=== PATIENT | female | born 1940 | race Caucasian/White ===

== ENCOUNTER 2018-05-15 08:40 | Outpatient (CLI) | payer MEDICARE, OTHER, SELFPAY | END 2018-05-15 09:00 | PROVIDERS: PCP General Practice; Visit Provider General Practice | DX: Z53.8 Procedure and treatment not carried out for other reasons (principal); Z00.00 Encounter for general adult medical examination without abnormal findings | CPT/HCPCS: 36415; 80061; 82947; 83721 ==

== ENCOUNTER 2018-06-06 01:00 | Outpatient (CLI) | payer MEDICARE, OTHER, SELFPAY ==
--- NOTE | 2018-06-06 13:55 | DI.MAMMO_ITS ---
SYMPTOMS/DIAGNOSIS: SCREENING, Z12.31, H/O BREAST CA MAMMOGRAM: The patient has a history of right lumpectomy. Comparison is made with exams from 2012 through 2016. The breasts are composed of heterogeneously dense fibroglandular tissue, breast density category C. Scarring is again noted in the upper outer quadrant of the right breast. There are coarse, benign- appearing calcifications, greater in the right breast. No suspicious masses or suspicious microcalcifications are seen. There has been no significant change. IMPRESSION: Category 2, negative mammogram. Yearly screening mammography is recommended. SA ASSESSMENT OF FINDINGS: Negative with benign findings. Category 2. Patient will receive a letter notifying them of these results. Bi-RADS category C. The breasts are heterogeneously dense, which may obscure small masses.
== END 2018-06-06 01:20 ==
PROVIDERS: PCP General Practice; Visit Provider General Practice
DX: Z12.31 Encounter for screening mammogram for malignant neoplasm of breast (principal); Z85.3 Personal history of malignant neoplasm of breast
CPT/HCPCS: 77063; 77067

== ENCOUNTER 2018-06-09 08:51 | Outpatient (CLI) | payer MEDICARE, OTHER, SELFPAY ==
[2018-06-09 10:09] LABS: Cholesterol 242 mg/dL (50-200); Glucose 99 mg/dL (70-100); HDL Cholesterol 85 mg/dL (40-60); LDL CHOLESTEROL 143 mg/dL (<100); Triglyceride 65 mg/dL (30-150)
== END 2018-06-09 09:11 ==
PROVIDERS: PCP General Practice; Visit Provider General Practice
DX: I10 Essential (primary) hypertension (principal); Z13.1 Encounter for screening for diabetes mellitus
CPT/HCPCS: 36415; 80061; 82947; 83721

== ENCOUNTER 2018-07-22 11:54 | Inpatient (IN) | payer MEDICARE, SELFPAY ==
--- NOTE | 2018-07-22 11:59 | DI.RAD_ITS ---
SYMPTOM/DIAGNOSIS: FALL, LT HIP PAIN, R/O FX PELVIS AND LEFT HIP: There is a subcapital fracture of the left femur. There is displacement and angulation. Sacrum is obscured by overlying stool and bowel gas. The right hip is unremarkable. IMPRESSION: Subcapital fracture of the left femur.
[2018-07-22 12:03] VITALS: BP 139/77; PULSE 100; RESP 17; TEMP 37.1; O2SAT 97
--- NOTE | 2018-07-22 12:03 | ED.GENADUL_ITS ---
Discharge Plan Disposition Patient Disposition: [facility] INPATIENT Condition: Good Discharge Details Chief Complaint: Orthopedic Clinical Impression: Closed fracture of left hip Reason For Visit: BALTAZAR Primary Care Provider: Zaid Ballesteros ED Provider: Giovanni Barajas Home Meds and New Rx's Prescriptions: No Action atenolol 25 MG tablet 25 mg PO DAILY RF: 0 Medical Decision Making This is a 78-year-old female who presents today for evaluation of left hip pain. She fell today after tripping on socks. She did not hit her head or lose consciousness. She did have to crawl to the phone and was able to get up utilizing her right leg. She has not been able to place any weight on her left hip. No evidence of internal or external rotation or shortening. Physical exam though is concerning for hip fracture. We will get an x-ray for further evaluation. 2:02 PM X-ray demonstrates results of a left femoral neck fracture. We will consult anesthesia for fascial iliac block. We have no available beds at this time. Did contact the hospitalist Dr. Bryan and asked if there would be any discharges coming up the states that he is unsure at this time, and would recommend transfer stating that the critical load of his current patient volume he is unable to accept any additional patients at this time. We have contacted [facility], [place], and [facility] and they do not have availability at this time. [facility] does not have orthopedics [employer] currently. [facility] does have room, we will contact them. 2:42 PM We have not gotten any call back from [facility]. I did contact the orthopedic surgeon on-call Dr. Cortez, and discussed the case with him. A bed has just opened up secondary to a medicine transfer out, Dr. Cortez has agreed to accept the patient and will care for the patient's medical needs as well at this time. Patient will be admitted to the floor for further management by Dr. Cortez for orthopedic surgery. It is been requested that I put in bridging orders at this time. I have extensively reviewed the treatment plan with the patient. I have addressed all patient concerns at this time. I have also discussed the plan with the admitting physician and they agree with the current assessment and plan and have agreed to assume responsibility for the patient. All parties demonstrate verbal understanding and agreement with our assessment and plan at this time. FINDINGS: Bones/joints: There is a left femoral neck fracture with mild impaction and superior displacement. Bone mineralization appears decreased. Moderate spondylosis lower lumbar spine. Soft tissues: Normal. IMPRESSION: Left femoral neck fracture. COMMENT: Preliminary interpretation is based on receipt of 3 image(s). A final report will be issued subsequently. Dictated and Authenticated by: Renee Magallon MD. [facility] General Date/Time Provider Initiated Documentation: 07/22/18 11:59 . HPI Narrative: This is an 79-year-old female with a past medical history of breast cancer and no other significant past medical history except for mild hypertension who presents today for evaluation of left hip pain. The patient states that she was at home when she tripped on her socks and fell and landed on her left side. Pain is located only in the left hip. No pain in the chest, legs, or arm. She had no loss of consciousness and did not strike her head. She recalls the entire event. She is not on any blood thinners. The pain is located on the medial aspect of her proximal thigh by the hip. Symptoms are made worse with movement, improved by nothing. She denies any associated symptoms of numbness, tingling, or weakness. No other modifying factors. She denies IV or illicit drug use. She denies any recent surgeries. She denies any pertinent family history. Related Data Home Medications Medication Instructions Recorded Confirmed atenolol 25 mg PO DAILY 03/30/13 07/22/18 Allergies Allergy/AdvReac Type Severity Reaction Status Date / Time No Known Allergies Allergy Unverified 07/22/18 12:09 Review of Systems Review of Systems All systems reviewed & are unremarkable except as noted in HPI and below [facility] Surgical History Cholecystectomy (12/30/16) Social History Smoking/Tobacco Use Status: Former Tobacco Use Exam Narrative Exam Narrative: 1.Const: Well-nourished, Well-developed, appearing stated age 2.Eyes: PERRL, no conjunctival injection, and symmetrical lids. 3.ENT: Atraumatic external nose and ears. Moist MM. Neck: Symmetric, trachea midline, No thyromegaly. There is no evidence of raccoon eyes, coello sign, CSF rhinorrhea, mastoid tenderness, cranial crepitus, hemotympanum, exophthalmos, or hyphema. Patient demonstrates intact dentition with no signs of tooth avulsion or fracture, no signs of jaw deformity, no evidence of a LeFort's fracture, with an intact palate, nose and orbital region. There is no evidence of a nasal septal hematoma. No proptosis. Jaw closes symmetrically. Airway is clear. 4.CVS: +S1/S2, No murmurs or gallops. Peripheral pulses 2+ and equal in all extremities. Brisk capillary refill in all extremities. 5.RESP: Unlabored respiratory effort. Clear to auscultation bilaterally. No wheezes rales or rhonchi 6.GI: Soft, Nontender/Nondistended, No hepatosplenomegaly. No guarding or rebound. 7.MSK: Normocephalic/Atraumatic, Extremities w/o deformity or ttp No cyanosis or clubbing, patient's left hip demonstrates mild tenderness on palpation of the hip near the medial groin. No severe tenderness on palpation of the greater trochanter. Notable pain with logroll. Patient demonstrates good plantar and dorsiflexion, good flexion extension of the knee which is slightly limited secondary to pain. Pelvis is stable on exam. Capillary refill is brisk, sensation is intact distal to the site of pain. Dorsalis pedis and posterior tibial +2 bilaterally. No midline tenderness to palpation over the CTLS spine. Normal ROM in flexion, extension, side bend, and rotation. Patient has +5 out of 5 strength in the lower extremities in dorsiflexion and plantarflexion, knee flexion and extension, hip flexion and extension. There is +2 over 2 dorsalis pedis pulses bilaterally. There is normal sensation to the skin with light touch at the foot, knee, and hip. Normal saddle sensation. Good sensation over the deep sural nerve area bilaterally. Rectal exam deferred. Reflexes are +2 over 4 in the patellar reflex bilaterally. +5 out of 5 strength in the medial, ulnar, radial nerve distribution bilaterally in the hands as well as intact light touch sensation to these dermatomes on the hands 8.Skin: Warm, Dry. No rashes or lesions. 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 Sensation grossly intact, no focal neurologic deficits. 10.Psych: (AAO) x3. Appropriate mood and affect
[2018-07-22] MEDS: MORPHine 10 MG/ML VIAL 2 MG IVP (12:56)
[2018-07-22 13:01] LABS: Abs Immature Grans 0.04 k/cumm (0.0-0.09); Absolute Basophil Count 0.02 k/cumm (0.0-0.2); Absolute Eosinophil Count 0.04 k/cumm (0.0-0.7); Absolute Lymphocyte Count 0.58 k/cumm (1.2-3.4); Absolute Neutrophil Count 5.71 k/cumm (1.2-6.7); Basophils % 0.3; Eosinophils % 0.6; HCT 36.7 % (36.0-46.0); HGB 12.2 g/dL (12.0-15.5); Immature Grans % 0.6; Lymphocytes % 8.7; Mean Corp. HGB Concentration 33.2 g/dL (32.0-36.0); Mean Corpuscular Hemoglobin 32.4 pg (27.0-33.0); Mean Corpuscular Volume 97.3 fL (80-95); Mean Platelet Volume 9.8 fL (8.0-11.0); Monocytes % 4.5; Neutrophils % 85.3; Platelet Count 162 x1000/uL (130-400); RBC 3.77 m/cumm (4.00-5.20); RBC Distribution Width 13.1 % (11.7-14.6); White Blood Cell Count 6.69 k/cumm (4.4-10.8)
[2018-07-22 13:13] LABS: ALT 26 U/L (12-78); AST 24 U/L (15-37); Albumin 3.3 g/dL (3.4-5.0); Alkaline Phosphatase 76 U/L (46-116); Anion Gap 8.6 mmol/L (3-11); BUN 12 mg/dL (7-18); Bilirubin, Total 0.4 mg/dL (0.2-1.0); CO2 27.4 mmol/L (21.0-32.0); CREATININE 1.02 mg/dL (0.55-1.02); Calcium 8.9 mg/dL (8.5-10.1); Chloride 105 mmol/L (98-107); Estimated GFR 52.14 (mL/min/1.73m2); Glucose 127 mg/dL (70-100); Potassium 3.6 mmol/L (3.5-5.1); Sodium 141 mmol/L (136-145); Total Protein 6.9 g/dL (6.4-8.2)
--- NOTE | 2018-07-22 13:33 | DI.VRAD_ITS ---
EXAM: XR Left Hip with Pelvis when Performed, 2 or 3 Views EXAM DATE/TIME: 07/22/2018 12:01 PM CLINICAL HISTORY: 78 years old, female; Pain; Hip pain; Left hip; Patient HX: Fall TECHNIQUE: XR Left hip with pelvis when performed, 2 or 3 views COMPARISON: CT ABD PELVIS WITH CONTRAST 12/15/2016 4:31 PM FINDINGS: Bones/joints: There is a left femoral neck fracture with mild impaction and superior displacement. Bone mineralization appears decreased. Moderate spondylosis lower lumbar spine. Soft tissues: Normal. IMPRESSION: Left femoral neck fracture. COMMENT: Preliminary interpretation is based on receipt of 3 image(s). A final report will be issued subsequently. Dictated and Authenticated by: Renee Magallon MD. Ordering:SELENE Davila MD
[2018-07-22 16:41] VITALS: BP 139/77; PULSE 97; RESP 17; TEMP 37.1; O2SAT 97
[2018-07-22 19:13] VITALS: BP 142/75; PULSE 101; RESP 19; TEMP 37.5; O2SAT 96
[2018-07-22 21:29] VITALS: BP 153/65; PULSE 126; RESP 19; TEMP 37.8; O2SAT 96
[2018-07-22] MEDS: Metoprolol 12.5 MG TAB PO (21:30)
[2018-07-22] MEDS: Acetaminophen 325 MG TAB 650 MG PO (21:54)
[2018-07-22 22:04] VITALS: TEMP 37.4
[2018-07-22 23:52] VITALS: BP 146/62; PULSE 97; RESP 17; TEMP 37.5; O2SAT 96
[2018-07-23] VITALS (16 sets, daily range): BP systolic 87–138; BP diastolic 47–76; PULSE 84–122; RESP 14–24; TEMP 36.4–38.6; O2SAT 93–98
--- NOTE | 2018-07-23 08:20 | W.PM.HP.N ---
[facility] Medical History Femoral neck fracture (Acute) Surgical History Cholecystectomy (12/30/16) Social History Smoking/Tobacco Use Status: Former Tobacco Use Meds Home Medications Medication Instructions Recorded Confirmed Type metoprolol tartrate 12.5 mg PO BID 07/22/18 07/22/18 History Allergies Allergy/AdvReac Type Severity Reaction Status Date / Time No Known Allergies Allergy Unverified 07/22/18 12:09 Results Labs : 07/25/18 06:20 07/22/18 12:50 Laboratory Results - last 24 hr 07/22/18 07/22/18 12:50 12:50 WBC 6.69 RBC 3.77 L Hgb 12.2 Hct 36.7 MCV 97.3 H MCH 32.4 MCHC 33.2 RDW 13.1 Plt Count 162 MPV 9.8 Immature Gran % 0.6 Neutrophils % 85.3 Lymphocytes % 8.7 Monocytes % 4.5 Eosinophils % 0.6 Basophils % 0.3 Absolute Neutrophils 5.71 Absolute Lymphocytes 0.58 L Absolute Monocytes 0.30 Absolute Eosinophils 0.04 Absolute Basophils 0.02 Sodium 141 Potassium 3.6 Chloride 105 Carbon Dioxide 27.4 Anion Gap 8.6 BUN 12 Creatinine 1.02 Estimated GFR/1.73 m2 52.14 Glucose 127 H Calcium 8.9 Total Bilirubin 0.4 AST 24 ALT 26 Alkaline Phosphatase 76 Total Protein 6.9 Albumin 3.3 L Last Vital Signs Temp 37.8 C H 07/23/18 08:14 Pulse 104 H 07/23/18 08:14 Resp 18 07/23/18 08:14 BP 130/76 07/23/18 08:14 Pulse Ox 96 07/23/18 08:14
[2018-07-23] MEDS: Metoprolol 12.5 MG TAB PO ×2 (08:35→19:14)
[2018-07-23] MEDS: Lactated Ringers 1,000 ML 80 ML IV ×3 (09:04→13:22)
[2018-07-23] MEDS: Hydrogen Peroxide 3% 480 ML BTL (10:11)
[2018-07-23] MEDS: Tranexamic Acid 1,000 MG/10 ML VIAL 1000 MG (10:32)
[2018-07-23] MEDS: Normal Saline 100 ML (10:32)
--- NOTE | 2018-07-23 12:05 | DI.RAD_ITS ---
SYMPTOM/DIAGNOSIS: CHECK HIP PROSTHESIS IN E.R. PORTABLE PELVIS: 07/23/18 AT 12:03 P.M. The patient is status post placement of a bipolar left hip prosthesis. Metallic anchors are noted in the greater tuberosity. The lateral skin paulo and Barajas catheter are seen. There are degenerative changes of the right hip. IMPRESSION: Satisfactory positioning of left hip prosthesis.
--- NOTE | 2018-07-23 12:30 | DI.VRAD_ITS ---
EXAM: XR Pelvis, 1 or 2 Views EXAM DATE/TIME: 07/23/2018 11:28 AM CLINICAL HISTORY: 78 years old, female; Signs and symptoms; Other: Check hip prosthesis in rr TECHNIQUE: XR pelvis, 1 or 2 views COMPARISON: CR XR hip LT complete AP pelvis 07/22/2018 12:30 PM FINDINGS: Bones/joints: Left total hip replacement. [place] in the skin consistent with recent surgery. Osteopenia Lucencies in the left superior and inferior pubic rami may represent unhealed fractures. Soft tissues: See Bones/joints Finding. IMPRESSION: 1. Left total hip replacement. [place] in the skin consistent with recent surgery. 2. Lucencies in the left superior and inferior pubic rami may represent unhealed fractures. Dictated and Authenticated by: Rebecca Taveras MD. Ordering:MALCOLM Angel MD
--- NOTE | 2018-07-23 14:30 | NUR.NOTE ---
Nursing Note: 0830: discussion with Dr. Cortez r/t 12.5mg metoprolol ordered; MD requests medication be given r/t pt's HR. RN had attempted to call and discuss with Irene rodriguez at 0815 this morning. EPITAXIAL REACTOR OPERATOR not available to discuss.
[2018-07-23] MEDS: Ketorolac 15 MG/ML VIAL IVP ×2 (14:40→19:12)
[2018-07-23] MEDS: Docusate Sodium 100 MG CAP PO ×2 (14:40→19:14)
[2018-07-23] MEDS: POTASSIUM CHLORIDE/0.9% NACL 1,000 ML 100 MEQ IV (14:40)
--- NOTE | 2018-07-23 14:48 | INITIAL_ITS ---
Care Management Initial Assess REASON FOR HOSPITALIZATION:: Left Hip Fracture PAST MEDICAL HISTORY/PAST SURGICAL HISTORY:: Cataracts, Breast Cancer, hypertension, vertigo, bursitis L HIP, back pain, colonoscopy, lumpectomy RT, ankle, former tobacco use PREVIOUS FUNCTIONAL STATUS/SOCIAL/FAMILY SUPPORTS:: Yuki resides alone in [place], [place]. She reports residing alone since losing her in 1994. She shares that her son and daughter in law reside across the street and are supportive. Yuki reports having a healthy support network of family and friends including her daughter, Blanca and son in law who reside in [place] and grandchildren as well. CURRENT FUNCTIONAL STATUS:: Yuki is lying in bed when CM meets with her. She has returned from the OR and reports looking forward to eating her lunch. She is pleasant in interaction. ADVANCE DIRECTIVES:: None on file at [facility], Yuki reports not wanting to complete at this time. Has patient been provided with information about the portal?: Yes Did the patient sign up for the portal?: Yes (Previously ) CODE STATUS:: Full Code INSURANCE COVERAGE / FINANCIAL ISSUES:: Angelo Cuevas, Precious, LIZZY CURRENT HOME/COMMUNITY SERVICES/EQUIPMENT:: No current equipment or services. Yuki reports her daughter recently had Hip Surgery and will provide all DME needed. Yuki reports four steps into her home, but shares her home is all one level. PRIMARY CARE PHYSICIAN:: Zaid Ballesteros POTENTIAL DISCHARGE NEEDS:: PT evaluation. Follow up appointments. PATIENT/FAMILY EDUCATION NEEDS:: Review discharge instructions, discuss Ask Me Three. ANTICIPATED BARRIERS TO DISCHARGE:: None identified at this time. TRANSPORTATION:: Via private vehicle with family. PLAN:: Yuki will be evaluated for discharge readiness. She will work with PT on strengthening, transfer education and gait stability. Yuki will return home when ready per MD; undetermined if she will require VNA supports upon discharge; CM will continue to follow. Yuki will transport via private vehicle with family.
[2018-07-23] MEDS: Normal Saline Flush 10 ML SYR IVP (19:13)
[2018-07-23] MEDS: Acetaminophen 325 MG TAB 650 MG PO (23:37)
[2018-07-24] MEDS: POTASSIUM CHLORIDE/0.9% NACL 1,000 ML 100 MEQ IV ×2 (00:57→12:38)
[2018-07-24] MEDS: Ketorolac 15 MG/ML VIAL IVP ×4 (01:00→19:59)
[2018-07-24] MEDS: Normal Saline Flush 10 ML SYR IVP ×2 (01:01→03:50)
[2018-07-24 03:15] VITALS: O2SAT 93
[2018-07-24 03:37] VITALS: BP 115/69; PULSE 94; RESP 17; TEMP 37.5; O2SAT 95
--- NOTE | 2018-07-24 06:29 | HPE_ITS ---
ADMISSION HISTORY AND PHYSICAL DATE OF SERVICE July 22, 2018 REASON FOR ADMISSION Displaced fracture of left femoral neck. ASSESSMENT 1. Displaced fracture left femoral neck. 2. Sinus tachycardia. 3. History of breast cancer in remission. 4. Hypertension. 5. Hypercholesterolemia. PLAN Plan to admit her overnight for pain control. She will be n.p.o. after midnight and plan on a unipolar prosthetic replacement of the left femoral h ead for femoral neck fracture tomorrow 07/23/2018 at 9:00 a.m. The risks and complications of the procedure have been explained to the patient and her family in det ail. HISTORY This is an 78-year-old white female who says she tripped over some socks in her house and landed hard on her left side. She tried to get up, but it was too painful for her to step on her left leg. Famil y members were able to get her an ambulance and transport to [facility]. X-rays showed a displaced fracture of her left femoral neck. Prosthetic replacement of the femoral head for femoral neck fracture was advised as optimum treatment . She will be admitted overnight for pain control. The planned unipolar prosthetic replacement is leatha orr morning on 07/23/2018 at 9:00 a.m. She has received a fascia patricia block by anesthesia to help wi th her pain over night. PAST MEDICAL HISTORY 1. Breast cancer. In the early 90s, she had breast cancer. This was treated by surgery, followed by radiation and chemotherapy. She has been to her knowledge cancer free. 2. Cholecystectomy and that was a few years ago at [facility] in [place]. ALLERGIES NONE KNOWN. MEDICATIONS 1. Ibuprofen. She takes occasional ibuprofen for arthritis. 2. Atenolol for rate control for apparent sinus tachycardia. She has had a cardiac workup with an ec ho with no specific abnormalities found. REVIEW OF SYSTEMS She denies any loss of consciousness or any trauma to her head. She denies any shortness of breath. No chest pain. No abdominal pain. No recent weight loss or gain. No vision problems. No urinary symptoms. No bowel symptoms. PHYSICAL EXAMINATION VITAL SIGNS - Blood pressure is 139/77. Pulse 100 and regular. Respirations 17 a minute. O2 sat 97% on room air. Temperature 37.1. HEENT - Head is normocephalic. No evidence of any external trauma to the head. Ear, Nose and Throat - External auditory canals are clear. Tongue is well papillated, midline. She has her own teeth, but t here are several missing. NECK - No bruits. No masses. LUNGS - Lungs are clear to auscultation. HEART - Heart sounds are within normal limits. Regular rhythm. No murmurs. No extra beats. She appear s to be in sinus tachycardia. BREASTS - No skin changes. No masses. ABDOMEN - Soft, nontender. Active bowel sounds. No organomegaly. RECTAL - Examination not performed. GENITALIA - Examination not performed. EXTREMITIES - Her left lower extremity is minimally shortened. She is irritable with internal rotatio n even though she has had a fascia patricia block. There is no swelling of her left foot and ankle. No sk in changes. She has normal sensation in her left foot. Normal circulation in the left foot. X-rays - AP pelvis x-rays and Frog lateral x-ray of the left hip was obtained. She has a femoral neck fracture that is completely displaced. It is mid cervical. LABORATORY STUDIES Hemoglobin 12.2 grams, hematocrit 36.7%, white blood cell count 6,690, platelet count 162,000. Total cholesterol is high at 242 mg/dl. Sodium 141, potassium 3.6, chloride 105, CO2 27.4, BUN 12 mg/dl, creatinine 1.02 mg/dl.
[2018-07-24] MEDS: Pantoprazole 40 MG TABCR PO (06:52)
--- NOTE | 2018-07-24 07:19 | ROE_ITS ---
REPORT OF OPERATIVE PROCEDURE DATE OF PROCEDURE July 23, 2018 PREOPERATIVE DIAGNOSES Fracture left femoral neck, displaced. POSTOPERATIVE DIAGNOSES 1. Fracture left femoral neck, displaced. 2. Avulsion of abductor muscles from the greater trochanter on the left. PROCEDURES 1. Unipolar prosthetic replacement of the left femoral head for femoral neck fracture. 2. Repair of avulsed abductor muscles to the greater trochanter. ANESTHESIA Spinal, by Jeff Avila C.R.N.A. SURGEON Stanley Cortez M.D. INSPECTOR MOTOR VEHICLES Luc Connor INDICATION This is an 78-year-old white female who fell in her home yesterday 07/22/2018 sustaining a displaced f racture of the left femoral neck. The patient had given a history of some ongoing left hip discomfort for several months prior to her fall. She presented to the Emergency Room where x-rays showed the di splaced femoral neck fracture. Unipolar prosthetic replacement was advised as optimal treatment to a lleviate her pain and get up and ambulatory as soon a possible. The risks and complications to the pr ocedure were explained to the patient in detail preoperatively. PROCEDURE DESCRIPTION The patient was taken to the Operating Room on 07/23/2018. She was placed supine on the operating tabl e, turned on her to left side and a spinal anesthetic was administered. Once good spinal was obtained , the patient was then turned into the left lateral position. The position was maintained on the oper ating table with a pneumatic beanbag. The left hip was then prepped and draped free in the usual reid rile fashion. IV antibiotics were given preoperatively, Ancef 2 grams. A standard posterolateral incision was made centered over the greater trochanter. The incision was c arried down through the skin and subcu to the IT band and gluteus fascia. The IT band and gluteus fas pete were incised in line with the skin incision. Upon incising the IT band, the patient was noted to have bare greater trochanter due to avulsion of the abductor muscles with proximal migration of the m uscles. This has been termed the rotator cuff lesion of the hip. The piriformis tendon was identified. Tag suture was placed on the tendon. The tendon was released fr om the insertion of the posterior femoral neck. Short external rotators were released with electrocau rebecca from the posterior femoral neck. A capsular incision was made. The fracture was exposed. The fem oral head was removed with a corkscrew. The diameter was measured and it was found to require a 45-mm diameter prosthetic femoral head. The femoral neck was then further trimmed using oscillating saw to the appropriate level and angle. The femoral canal was then serially reamed with straight reamers to between a size #5 and #6, and then it was serially broached to a size #6. The femoral canal was the n plugged distally with the [place] Cement restrictor. The femoral canal was prepared with cementin g with pulse irrigation lavage of saline solution and drying with peroxide-soaked strip sponges. Two packages of Gentamicin impregnated Methacrylate were vacuum mixed and placed in the cement gun fo r injection. The peroxide sponges were removed from the femoral canal and the femoral canal was then filled with Methacrylate with the cement gun. A size #6 stem with a distal centralizer 10 millimeters were then inserted into the femoral canal and advanced, and then impacted until the collar of the co mponent contacted the calcar of the femur. Care was taken to position the component in 20 degrees of anteversion. Excess cement was trimmed from the edge of the collar of the component while the cement was still soft with curettes. peroxide-soaked sponge had been placed in the acetabulum to prevent pilar ent from oozing into the acetabulum. This sponge was removed. The wound was irrigated with saline so lution and all cement was removed. Trial components were then used to determine that a 45-mm head wit h a zero sleeve provided proper length. The 45-mm component was then placed on the back table. The ze ro sleeve was placed in the component and then the unipolar Endoprosthesis was placed on the neck of the stem, and impacted into place with the Impactor mallet. The femoral component was reduced in the acetabulum and was found to be quite stable. The hip was stable to flexion to 90 degrees with interna l rotation of 6 degrees and stable to external rotation and extension. The left thigh was abducted in a Benjamin stand closure was began. I elected to try to repair the avulsed abductor tendons. Two 6.5 suture anchors were placed on the ti p of the trochanter and the #2 FiberWire from the anchors were then passed through the retracted edge s of the abductor tendon in a horizontal mattress fashion. The sutures were then sequentially tied se curing the avulsed abductor muscles to the tip of the trochanter. The piriformis tendon was then sutu red to the abductor tendon at the tip of the trochanter with few interrupted [id number] sutures of #1-Vicryl suture material. 2 grams of tranexamic acid and 150 cc of saline was instilled into the wound and allowed to stay for 60 seconds to help hemostasis. All bleeders were cauterized. The wound was irrigated with Betadine and saline solution. The Betadine and saline was also allowed to stay in the wound for a minute before suctioning. The wound margins were infiltrated with 0.05% Marcaine with epinephrine solution for postoperative analgesia. The iliotibial band and gluteus fascia were approx imated with interrupted [id number] stitches of #1-Vicryl suture material. The subcu was approxim ated with interrupted #2-0 Vicryl sutures. The skin edges were approximated with skin paulo. The wound was dressed with Xeroform gauze, sterile gauze, 4x4s, ABD pad, and then taped with foam elastic tape. The patient was then turned supine on the operating table. She was transferred to the hospital bed, and then to the Recovery Room in good condition. ESTIMATED BLOOD LOSS 200 cc.
[2018-07-24 07:23] LABS: HCT 31.2 % (36.0-46.0); HGB 10.1 g/dL (12.0-15.5); Mean Corp. HGB Concentration 32.4 g/dL (32.0-36.0); Mean Corpuscular Hemoglobin 32.1 pg (27.0-33.0); Mean Platelet Volume 10.3 fL (8.0-11.0); Platelet Count 127 x1000/uL (130-400); RBC 3.15 m/cumm (4.00-5.20); RBC Distribution Width 13.2 % (11.7-14.6)
[2018-07-24 07:30] VITALS: BP 157/87; PULSE 97; RESP 16; TEMP 37.7; O2SAT 92
[2018-07-24] MEDS: Metoprolol 12.5 MG TAB PO ×2 (08:21→20:00)
[2018-07-24] MEDS: Multivitamin w/Minerals TAB 1 TAB PO (08:21)
[2018-07-24] MEDS: Docusate Sodium 100 MG CAP PO ×3 (08:21→20:00)
[2018-07-24] MEDS: Enoxaparin 30 MG/0.3 ML SYR SC (10:17)
--- NOTE | 2018-07-24 11:00 | PT.INIE ---
Date of service: 07/24/18 Time of Service: 08:00 PT Notes Inpatient Physical Therapy Evaluation Date: 07/24/18 Referring Doctor: Dr. Cortez PT Orders: PT CONSULT: Mobilize postop unipolar prosthesis left hip; WBAT to left lower extremity Precautions: standard, fall Patient Profile/Admitting Diagnosis: Patient admitted after a fall at home resulting in hip fracture. She underwent surgery yesterday, with orders for PT consultation this morning. PMHX: Cataracts, Breast Cancer, hypertension, vertigo, bursitis L HIP, back pain, colonoscopy, lumpectomy RT, ankle, former tobacco use Social History/Home Situation: Patient lives alone in a single level home with 3 MURPHY. She has supportive family in the area. She does not typically utilize an assistive device, although states that she owns a wheeled walker that she plans to use upon her return home. Current Functional Limitations: Patient states that she was up to the chair with nursing this morning, and that she felt good. Equipment Owned/DME: [facility] Subjective: Patient reports that she is feeling well this morning. She is agreeable to getting up for PT consultation. States that she has chronic weakness in her left hip, and that she has walked with her leg turning in for several years Objective: General Observation: Resting comfortably in bed. Barajas catheter, IV in LUE Mental Status: A and O x3 Pain: Stiffness ROM: Right Upper Extremity: Grossly within normal limits Left Upper Extremity: Grossly within normal limits Right Lower Extremity: Grossly within normal limits Left Lower Extremity: Hip flexion allows 80 degrees functionally; not assessed beyond this point. External rotation allows neutral only, with patient resting in slight internal rotation when not supported externally with pillows. Abduction allows 20 degrees. Knee motion is functionally within normal limits. Strength: Right Upper Extremity: Shoulder flexion 3/5. Biceps 4+/5. Triceps 4/5. Left Upper Extremity: Shoulder flexion 3/5. Biceps 4+/5. Triceps 4/5. Right Lower Extremity: Hip Flexion 4+/5. Quads 4+/5. Hamstrings 4/5. Ankle dorsiflexion 4+/5. Left Lower Extremity: Quads 3/5. Hamstrings 3/5. Ankle dorsiflexion 4+/5. Sensation: Intact distally Bed Mobility/Transfers: Sit to supine: Min assist, with head of bed at 30 degrees Sit to stand: Contact-guard Stand to sit: Contact-guard Bed to chair: Contact-guard with wheeled walker Gait: Patient ambulates 5 feet with wheeled walker and contact-guard, weightbearing as tolerated left lower extremity. She requires cues throughout for equipment management and technique. Balance: Static Sitting: Good Dynamic Sitting: Good Static Standing: Fair Dynamic Standing: Fair Special Tests: Mobility Limitations Standardized Measure [facility] 6 clicks Basic Mobility Inpatient Short Form: Raw Score: 17 standardized Score: 42.13 CMS Score: 51% CMS Modifier: CK Informed Consent/Education: Patient instructed in purpose of PT consult and plan of care. She was educated regarding postoperative hip precautions, and provided with a handout for reminders. She was instructed in early therapeutic exercises, consisting of quad sets, glutes sets and L AQ, for 10 repetitions each. At end of session she remains sitting up in chair with safety strap in place, and call almeida within reach. 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 Patient presents with clinical signs and symptoms consistent with postoperative status, as demonstrated by the following impairment level findings: 1. Decreased left hip range of motion 2. Decreased lower extremity strength 3. Postoperative pain 4. Gait impairments Impairments are contributing to the following functional limitations: 1. Unable to tolerate household distance ambulation 2. Unable to manage stairs 3. Unable to independently get in and out of bed [facility] score 51% deficit Patient is assessed as aModerate 88630 \complexity based on the following: History: 78-year-old female, one day postop after left hip fracture resulting from a fall at home. History is complicated by chronic vertigo, chronic left hip dysfunction with associated gait deficits, and advanced age. Examination: Functional limitations as noted above Presentation: Evolving, secondary to acute postoperative status Decision Making: Moderate complexity Goals: Goals X1 week 1. Supine-Sit: Supervision 2. Sit-Supine: Supervision 3. Sit-Stand : Supervision 4. Stand-Sit : Supervision 5. Bed-Chair : Supervision with WW 6. Chair-Bed : Supervision with WW 7. Gait : 50' with WW, supervision 8. Stairs : ascend and descend 6 steps x 3 with bilat rails Plan of Care/Treatment Plan: 1-2x/day, 7 days/week x 1 week. Plan of care has been reviewed with the MUD GRINDER providing the service under Physical Therapy direction. Initiate Physical Therapy intervention for strengthening, bed mobility, transfers, gait, stairs, balance training, use of assistive device. DISCHARGE RECOMMENDATIONS: Home with family assistance, no equipment needs anticipated TREATMENT CODE/TIME: 25 minutes (28409) G Codes in the area mobility of walking and moving around: current status [id number] []; projected status GP [id number]-[]. Discharge status (if discharging) GP G8980 [].
--- NOTE | 2018-07-24 11:03 | IN_ITS ---
Date of service: 07/24/18 Time of Service: 08:00 PT Notes Inpatient Physical Therapy Evaluation Date: 07/24/18 Referring Doctor: Dr. Cortez PT Orders: PT CONSULT: Mobilize postop unipolar prosthesis left hip; WBAT to left lower extremity Precautions: standard, fall Patient Profile/Admitting Diagnosis: Patient admitted after a fall at home resulting in hip fracture. She underwent surgery yesterday, with orders for PT consultation this morning. PMHX: Cataracts, Breast Cancer, hypertension, vertigo, bursitis L HIP, back pain, colonoscopy, lumpectomy RT, ankle, former tobacco use Social History/Home Situation: Patient lives alone in a single level home with 3 MURPHY. She has supportive family in the area. She does not typically utilize an assistive device, although states that she owns a wheeled walker that she plans to use upon her return home. Current Functional Limitations: Patient states that she was up to the chair with nursing this morning, and that she felt good. Equipment Owned/DME: [facility] Subjective: Patient reports that she is feeling well this morning. She is agreeable to getting up for PT consultation. States that she has chronic weakness in her left hip, and that she has walked with her leg turning in for several years Objective: General Observation: Resting comfortably in bed. Barajas catheter, IV in LUE Mental Status: A and O x3 Pain: Stiffness ROM: Right Upper Extremity: Grossly within normal limits Left Upper Extremity: Grossly within normal limits Right Lower Extremity: Grossly within normal limits Left Lower Extremity: Hip flexion allows 80 degrees functionally; not assessed beyond this point. External rotation allows neutral only, with patient resting in slight internal rotation when not supported externally with pillows. Abduction allows 20 degrees. Knee motion is functionally within normal limits. Strength: Right Upper Extremity: Shoulder flexion 3/5. Biceps 4+/5. Triceps 4/5. Left Upper Extremity: Shoulder flexion 3/5. Biceps 4+/5. Triceps 4/5. Right Lower Extremity: Hip Flexion 4+/5. Quads 4+/5. Hamstrings 4/5. Ankle dorsiflexion 4+/5. Left Lower Extremity: Quads 3/5. Hamstrings 3/5. Ankle dorsiflexion 4+/5. Sensation: Intact distally Bed Mobility/Transfers: Sit to supine: Min assist, with head of bed at 30 degrees Sit to stand: Contact-guard Stand to sit: Contact-guard Bed to chair: Contact-guard with wheeled walker Gait: Patient ambulates 5 feet with wheeled walker and contact-guard, weightbearing as tolerated left lower extremity. She requires cues throughout for equipment management and technique. Balance: Static Sitting: Good Dynamic Sitting: Good Static Standing: Fair Dynamic Standing: Fair Special Tests: Mobility Limitations Standardized Measure [facility] 6 clicks Basic Mobility Inpatient Short Form: Raw Score: 17 standardized Score: 42.13 CMS Score: 51% CMS Modifier: CK Informed Consent/Education: Patient instructed in purpose of PT consult and plan of care. She was educated regarding postoperative hip precautions, and provided with a handout for reminders. She was instructed in early therapeutic exercises, consisting of quad sets, glutes sets and L AQ, for 10 repetitions each. At end of session she remains sitting up in chair with safety strap in place, and call almeida within reach. 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 Patient presents with clinical signs and symptoms consistent with postoperative status, as demonstrated by the following impairment level findings: 1. Decreased left hip range of motion 2. Decreased lower extremity strength 3. Postoperative pain 4. Gait impairments Impairments are contributing to the following functional limitations: 1. Unable to tolerate household distance ambulation 2. Unable to manage stairs 3. Unable to independently get in and out of bed [facility] score 51% deficit Patient is assessed as aModerate 82571 \complexity based on the following: History: 78-year-old female, one day postop after left hip fracture resulting from a fall at home. History is complicated by chronic vertigo, chronic left hip dysfunction with associated gait deficits, and advanced age. Examination: Functional limitations as noted above Presentation: Evolving, secondary to acute postoperative status Decision Making: Moderate complexity Goals: Goals X1 week 1. Supine-Sit: Supervision 2. Sit-Supine: Supervision 3. Sit-Stand : Supervision 4. Stand-Sit : Supervision 5. Bed-Chair : Supervision with WW 6. Chair-Bed : Supervision with WW 7. Gait : 50' with WW, supervision 8. Stairs : ascend and descend 6 steps x 3 with bilat rails Plan of Care/Treatment Plan: 1-2x/day, 7 days/week x 1 week. Plan of care has been reviewed with the LONE LEAD LINEMAN providing the service under Physical Therapy direction. Initiate Physical Therapy intervention for strengthening, bed mobility, transfers, gait, stairs, balance training, use of assistive device. DISCHARGE RECOMMENDATIONS: Home with family assistance, no equipment needs anticipated TREATMENT CODE/TIME: 25 minutes (97580) G Codes in the area mobility of walking and moving around: current status [id number] []; projected status GP [id number]-[]. Discharge status (if discharging) GP G8980 [].
[2018-07-24 11:23] VITALS: BP 122/66; PULSE 89; RESP 16; TEMP 36.8; O2SAT 95
--- NOTE | 2018-07-24 12:06 | PT.INTREAT ---
Date of service: 07/24/18 Time of Service: 12:06 PT Notes Inpatient Physical Therapy Treatment Note [facility] Date: 07/24/18 PRECAUTIONS: WBAT on L, Fall SUBJECTIVE: Yuki states that she feels weak through her L LE. OBJECTIVE: PAIN: No c/o pain BED MOBILITY/TRANSFERS Sit-stand: CGA Stand-sit: CGA GAIT Assistive Device: FWW Weight bearing: WBAT L Assist: CGA Distance: 10' + 5'x2 THEREX: Patient completed a LE strengthening program, as per flow sheet. STAIRS: Up 3x4 and down 2x6 using B rails and a step-to pattern with CGA. ASSESSMENT: Patient tolerated session well without complaint of pain. She was able to tolerate a progression in gait distance with FWW support and CGA. She was able to tolerate stair training, with cueing for appropriate technique. Patient would benefit from continued gait and transfer training as well as strengthening for improved mobility. PLAN: Continue with PT's POC TREATMENT CODE/TIME: 30 minutes; TA/TP
--- NOTE | 2018-07-24 12:11 | PTTR_ITS ---
Date of service: 07/24/18 Time of Service: 12:06 PT Notes Inpatient Physical Therapy Treatment Note [facility] Date: 07/24/18 PRECAUTIONS: WBAT on L, Fall SUBJECTIVE: Yuki states that she feels weak through her L LE. OBJECTIVE: PAIN: No c/o pain BED MOBILITY/TRANSFERS Sit-stand: CGA Stand-sit: CGA GAIT Assistive Device: FWW Weight bearing: WBAT L Assist: CGA Distance: 10' + 5'x2 THEREX: Patient completed a LE strengthening program, as per flow sheet. STAIRS: Up 3x4 and down 2x6 using B rails and a step-to pattern with CGA. ASSESSMENT: Patient tolerated session well without complaint of pain. She was able to tolerate a progression in gait distance with FWW support and CGA. She w as able to tolerate stair training, with cueing for appropriate technique. Patient would benefit from continued gait and transfer training as well as strengthening for improved mobility. PLAN: Continue with PT's POC TREATMENT CODE/TIME: 30 minutes; TA/TP
--- NOTE | 2018-07-24 13:34 | W.PM.PROGNOT ---
Date of Service Date of service: 07/24/18 Time of Service: 09:34 Assessment and Plan (1) Femoral neck fracture: Start date: 07/22/18 Current visit: Yes Status: Acute Assessment: Stable postop day #1 unipolar prosthesis left hip for femoral neck fracture. I explained to the patient that she will be able to go home when she is independent with transfers and ambulation with a walker as well as taking only oral pain medications. Plan: Continue to mobilize with physical therapy. DC Barajas. Check hemoglobin tomorrow. The DC home at all acute care goals are for filled. Subjective Interval history since last seen: Yuik is feeling good. He has not requested any narcotics. Pain is well controlled. She got up and walked with physical therapy this morning. Exam Narrative Exam Narrative: She is afebrile vital signs are stable. She has good I and O's. No swelling in her left foot and ankle. She has good sensation and circulation to the left foot. Left hip dressings are dry. She is sitting comfortably in a chair this morning. Objective Objective Clinical Data: Abnormal lab results 07/24/18 Range/Units 06:35 RBC 3.15 L (4.00-5.20) m/cumm Hgb 10.1 L D (12.0-15.5) g/dL Hct 31.2 L (36.0-46.0) % MCV 99.0 H (80-95) fL Plt Count 127 L (130-400) x1000/uL Vital Signs Temperature 36.8 C 07/24/18 11:23 Temperature Source Tympanic 07/24/18 11:23 Pulse 89 07/24/18 11:23 Pulse Rhythm Regular 07/24/18 08:00 Respiratory Rate 16 07/24/18 11:23 Respiratory Effort Non-Labored 07/24/18 08:00 Respiratory Depth Normal 07/24/18 08:00 Respiratory Pattern Normal 07/24/18 08:00 Blood Pressure 122/66 07/24/18 11:23 Blood Pressure Position Supine 07/22/18 12:03 Pulse Oximetry 95 07/24/18 11:23 Respiratory End-tidal CO2 29 07/23/18 12:14 Oxygen Delivery Method Room Air 07/24/18 11:23 Oxygen Flow Rate 0 07/24/18 11:23 Pain Level 2 07/24/18 11:21 Comment 07/24/18 07:30 Intake & Output 07/23/18 07/24/18 07/24/18 23:59 11:59 23:59 Intake Total 2439.334 / 4089.334 2488.333 / 2488.333 Output Total 875 / 1800 725 / 725 Balance 1564.334 / 2289.334 1763.333 / 1763.333 Weight 73.3 kg Intake: IV 1359.334 / 3009.334 1398.333 / 1398.333 Oral 1080 / 1080 1090 / 1090 Output: Urine 875 / 1600 725 / 725 Other: Urine Color Straw Pale Yellow Urine Appearance Clear Clear Emesis Description None Laboratory Results WBC 5.80 k/cumm (4.4-10.8) 07/24/18 06:35 RBC 3.15 m/cumm (4.00-5.20) L 07/24/18 06:35 Hgb 10.1 g/dL (12.0-15.5) L D 07/24/18 06:35 Hct 31.2 % (36.0-46.0) L 07/24/18 06:35 MCV 99.0 fL (80-95) H 07/24/18 06:35 MCH 32.1 pg (27.0-33.0) 07/24/18 06:35 MCHC 32.4 g/dL (32.0-36.0) 07/24/18 06:35 RDW 13.2 % (11.7-14.6) 07/24/18 06:35 Plt Count 127 x1000/uL (130-400) L 07/24/18 06:35 MPV 10.3 fL (8.0-11.0) 07/24/18 06:35 Immature Gran % 0.6 07/22/18 12:50 Neutrophils % 85.3 07/22/18 12:50 Lymphocytes % 8.7 07/22/18 12:50 Monocytes % 4.5 07/22/18 12:50 Eosinophils % 0.6 07/22/18 12:50 Basophils % 0.3 07/22/18 12:50 Absolute Neutrophils 5.71 k/cumm (1.2-6.7) 07/22/18 12:50 Absolute Lymphocytes 0.58 k/cumm (1.2-3.4) L 07/22/18 12:50 Absolute Monocytes 0.30 k/cumm (0.11-0.7) 07/22/18 12:50 Absolute Eosinophils 0.04 k/cumm (0.0-0.7) 07/22/18 12:50 Absolute Basophils 0.02 k/cumm (0.0-0.2) 07/22/18 12:50 Sodium 141 mmol/L (136-145) 07/22/18 12:50 Potassium 3.6 mmol/L (3.5-5.1) 07/22/18 12:50 Chloride 105 mmol/L (98-107) 07/22/18 12:50 Carbon Dioxide 27.4 mmol/L (21.0-32.0) 07/22/18 12:50 Anion Gap 8.6 mmol/L (3-11) 07/22/18 12:50 BUN 12 mg/dL (7-18) 07/22/18 12:50 Creatinine 1.02 mg/dL (0.55-1.02) 07/22/18 12:50 Estimated GFR/1.73 m2 52.14 (mL/min/1.73m2) 07/22/18 12:50 Glucose 127 mg/dL (70-100) H 07/22/18 12:50 Calcium 8.9 mg/dL (8.5-10.1) 07/22/18 12:50 Total Bilirubin 0.4 mg/dL (0.2-1.0) 07/22/18 12:50 AST 24 U/L (15-37) 07/22/18 12:50 ALT 26 U/L (12-78) 07/22/18 12:50 Alkaline Phosphatase 76 U/L (46-116) 07/22/18 12:50 Total Protein 6.9 g/dL (6.4-8.2) 07/22/18 12:50 Albumin 3.3 g/dL (3.4-5.0) L 07/22/18 12:50
[2018-07-24 16:06] VITALS: BP 124/72; PULSE 111; RESP 17; TEMP 38; O2SAT 95
--- NOTE | 2018-07-24 17:23 | PDOC.CMPRO ---
Care Management Progress Note S/O: Yuki remains pleasant in interaction. She continues to have visitors throughout the day. She began stair training with PT today and continues to recover and work towards discharging to home. CM will continue to follow. A: 78 year old female admitted to [facility] 07/23/18 for Left Hip Fracture P: Per MD, Yuki will return home when she is independent with transfers and ambulation with a walker as well as taking only oral pain medications. She will transport via private vehicle with family.
--- NOTE | 2018-07-24 17:26 | CMPROGNOTE_ITS ---
Care Management Progress Note S/O: Yuki remains pleasant in interaction. She continues to have visitors throughout the day. She began stair training with PT today and continues to recover and work towards discharging to home. CM will continue to follow. A: 78 year old female admitted to [facility] 07/23/18 for Left Hip Fracture P: Per MD, Yuki will return home when she is independent with transfers and ambulation with a walker as well as taking only oral pain medications. She will transport via private vehicle with family.
[2018-07-24 19:51] VITALS: BP 147/79; PULSE 118; RESP 19; TEMP 38.2; O2SAT 98
[2018-07-25] VITALS (8 sets, daily range): BP systolic 109–147; BP diastolic 59–77; PULSE 85–115; RESP 17–22; TEMP 37.2–37.8; O2SAT 91–96
[2018-07-25] MEDS: Ketorolac 15 MG/ML VIAL IVP ×2 (02:06→09:31)
[2018-07-25] MEDS: POTASSIUM CHLORIDE/0.9% NACL 1,000 ML 60 MEQ IV (03:53)
[2018-07-25 07:19] LABS: Mean Corp. HGB Concentration 32.1 g/dL (32.0-36.0); Mean Corpuscular Hemoglobin 31.8 pg (27.0-33.0); Mean Corpuscular Volume 98.9 fL (80-95); Mean Platelet Volume 10.3 fL (8.0-11.0); Platelet Count 125 x1000/uL (130-400); RBC 2.83 m/cumm (4.00-5.20); RBC Distribution Width 13.1 % (11.7-14.6); White Blood Cell Count 5.85 k/cumm (4.4-10.8)
[2018-07-25] MEDS: Pantoprazole 40 MG TABCR PO (07:42)
[2018-07-25] MEDS: Acetaminophen 325 MG TAB 650 MG PO ×3 (08:13→20:24)
[2018-07-25] MEDS: Docusate Sodium 100 MG CAP PO ×3 (09:14→20:24)
[2018-07-25] MEDS: Metoprolol 12.5 MG TAB PO ×2 (09:14→20:24)
[2018-07-25] MEDS: Multivitamin w/Minerals TAB 1 TAB PO (09:14)
[2018-07-25] MEDS: Normal Saline Flush 10 ML SYR IVP (09:32)
--- NOTE | 2018-07-25 10:32 | PT.INTREAT ---
Date of service: 07/25/18 Time of Service: 10:32 PT Notes Inpatient Physical Therapy Treatment Note [facility] Date: 07/25/18 PRECAUTIONS: WBAT on L SUBJECTIVE: Yuki states that she has not had any pain medication this morning. OBJECTIVE: PAIN: Patient c/o L hip pain, and R shoulder pain BED MOBILITY/TRANSFERS Sit-stand: SBA Stand-sit: SBA GAIT Assistive Device: FWW Weight bearing: WBAT L Assist: CGA Distance: 20' x2 Deviation: Cueing for foot placement THEREX: Patient completed a LE strengthening and stabilization program, as per flow sheet. ASSESSMENT: Patient tolerated session with c/o hip pain with weight bearing and transfers. She was able to tolerate a progression in gait distance with FWW support. She would benefit from continued gait and transfer training, as well as strengthening for improved mobility. PLAN: Continue with PT's POC TREATMENT CODE/TIME: 25 minutes; ([id number], [id number])
[2018-07-25] MEDS: Enoxaparin 30 MG/0.3 ML SYR SC (11:00)
--- NOTE | 2018-07-25 12:17 | PHARADMIT ---
Admission Pharmacy Clinical Review left hip fracture Code Status Full Code Current Weight 74.3 kg Renally Cleared and Narrow Therapeutic Index Meds Crcl ~43.4 mL/min current meds okay QTc Value / Action Taken QTc 449 BP Control, Fever BP 115/70 Tmax 38.2 overnight Electrolytes reviewed within normal limits DVT Prophylaxis enoxaparin Opiate Usage / Scheduled Bowel Regimen Ordered prn/maulik Plt/SCr for Heparin / Enoxaparin plt 125 SCr 1.02 INR for Warfarin n/a H/H stable, WBC/Bands h/h 9.0/28.0 WBC 5.85 Antibiotic appropriateness n/a Cultures and Sensitivities none Surgical ABX d/c within 24 hr yes DM control / Insulin Dosing BG 127 Heart Failure (Check EF%) (HAZEL's, B-Block, Diuretics) metoprolol IV to PO Switch n/a Home Meds Reviewed yes Home Meds Not Ordered none Comments working with PT
--- NOTE | 2018-07-25 13:14 | PDOC.CMPRO ---
- If Service Date Differs Date of service: 07/25/18 Time of Service: 13:14 Care Management Progress Note S/O: CM met with Yuki and her daughter this morning. Yuki states that she is feeling well, and looking forward to working with PT today. Yuki and her daughter state that they are interested in home services, CM discussed home health PT/OT with them and they are receptive to this. Yuki also states that she feels she may require a commode at home. CM discussed that as her home is one level she would have to pay privately for a commode. A: 78 year old female admitted to [facility] 07/23/18 for Left Hip Fracture P: Per MD, Yuki will return home when she is independent with transfers and ambulation with a walker as well as taking only oral pain medications. She will require home health PT/OT at time of DC. She will transport via private vehicle with family.
--- NOTE | 2018-07-25 13:28 | CMPROGNOTE_ITS ---
- If Service Date Differs Date of service: 07/25/18 Time of Service: 13:14 Care Management Progress Note S/O: CM met with Yuki and her daughter this morning. Yuki states that she is feeling well, and looking forward to working with PT today. Yuki and her daughter state that they are interested in home services, CM discussed home health PT/OT with them and they are receptive to this. Yuki also states that she feels she may require a commode at home. CM discussed that as her home is one level she would have to pay privately for a commode. A: 78 year old female admitted to [facility] 07/23/18 for Left Hip Fracture P: Per MD, Yuki will return home when she is independent with transfers and amb ulation with a walker as well as taking only oral pain medications. She will require home health PT/OT at time of DC. She will transport via private vehicle with family.
--- NOTE | 2018-07-25 14:34 | CHAPLAIN ---
Yuki was sitting up in her chair when I visited. Her daughter was with her. Yuki is a member of [facility]. Her membership administrator, Sole Molding Machine Operator Hanh, knows that she is here. Yuki appears to be comfortable being here, and well supported by her daughter.
--- NOTE | 2018-07-25 14:57 | PGE_ITS ---
Date of Service Date of service: 07/25/18 Time of Service: 13:01 Assessment and Plan (1) Femoral neck fracture: Start date: 07/22/18 Current visit: Yes Status: Acute Assessment: Progressing well at 48 hours post op femoral neck fracture treated with a unipolar prosthesis. I think she should be ready to go home by tomorrow. I discussed this with her daughter and she is in agreement with our discharge plan for tomorrow. She will not need home health physical therapy. Plan: DC IVs. Change her dressing tomorrow. Probable discharge home tomorrow after her morning PT session. Subjective Patient reports: feels better, tolerating a regular diet, voiding w/o difficulty and afebrile (She needs minimal assist to get out of bed. She can walk to the bathroom and back to her bed with a walker. She is tried going up 3 or 4 stairs.); denies fever Objective Objective Clinical Data: Abnormal lab results 07/25/18 Range/Units 06:20 RBC 2.83 L (4.00-5.20) m/cumm Hgb 9.0 L (12.0-15.5) g/dL Hct 28.0 L (36.0-46.0) % MCV 98.9 H (80-95) fL Plt Count 125 L (130-400) x1000/uL Vital Signs Temperature 37.2 C 07/25/18 12:05 Temperature Source Tympanic 07/25/18 12:05 Pulse 97 H 07/25/18 12:05 Pulse Rhythm Regular 07/25/18 08:45 Respiratory Rate 18 07/25/18 12:05 Respiratory Effort Non-Labored 07/25/18 08:45 Respiratory Depth Normal 07/25/18 08:45 Respiratory Pattern Normal 07/25/18 08:45 Blood Pressure 109/63 07/25/18 12:05 Blood Pressure Position Supine 07/22/18 12:03 Pulse Oximetry 94 L 07/25/18 12:05 Respiratory End-tidal CO2 29 07/23/18 12:14 Oxygen Delivery Method Room Air 07/25/18 12:05 Oxygen Flow Rate 0 07/25/18 12:05 Pain Level 2 07/25/18 14:06 Comment 07/24/18 07:30 Intake & Output 07/24/18 07/25/18 07/25/18 23:59 11:59 23:59 Intake Total 1665 / 4253.333 1617 / 2226 609 / 2226 Output Total 400 / 1125 950 / 950 Balance 1265 / 3128.333 667 / 1276 609 / 1276 Weight 74.3 kg Intake: IV 745 / 2813.333 242 / 851 609 / 851 Oral 2009 1375 / 1375 Output: Urine 400 / 1125 950 / 950 Other: Urine Color Yellow Yellow Urine Appearance Clear Clear Urine Odor Normal Normal Comment patient missed the hat with some of the void the water in the toilet was yellow, patient feels she passes a moderate amount of urine, she has company present at the moment will bladder scan her when she is back in bed Stool Size Small Moderate Stool Characteristics Soft Soft Formed Brown Voiding Methods Toilet Bedside Commode Laboratory Results WBC 5.85 k/cumm (4.4-10.8) 07/25/18 06:20 RBC 2.83 m/cumm (4.00-5.20) L 07/25/18 06:20 Hgb 9.0 g/dL (12.0-15.5) L 07/25/18 06:20 Hct 28.0 % (36.0-46.0) L 07/25/18 06:20 MCV 98.9 fL (80-95) H 07/25/18 06:20 MCH 31.8 pg (27.0-33.0) 07/25/18 06:20 MCHC 32.1 g/dL (32.0-36.0) 07/25/18 06:20 RDW 13.1 % (11.7-14.6) 07/25/18 06:20 Plt Count 125 x1000/uL (130-400) L 07/25/18 06:20 MPV 10.3 fL (8.0-11.0) 07/25/18 06:20 Immature Gran % 0.6 07/22/18 12:50 Neutrophils % 85.3 07/22/18 12:50 Lymphocytes % 8.7 07/22/18 12:50 Monocytes % 4.5 07/22/18 12:50 Eosinophils % 0.6 07/22/18 12:50 Basophils % 0.3 07/22/18 12:50 Absolute Neutrophils 5.71 k/cumm (1.2-6.7) 07/22/18 12:50 Absolute Lymphocytes 0.58 k/cumm (1.2-3.4) L 07/22/18 12:50 Absolute Monocytes 0.30 k/cumm (0.11-0.7) 07/22/18 12:50 Absolute Eosinophils 0.04 k/cumm (0.0-0.7) 07/22/18 12:50 Absolute Basophils 0.02 k/cumm (0.0-0.2) 07/22/18 12:50 Sodium 141 mmol/L (136-145) 07/22/18 12:50 Potassium 3.6 mmol/L (3.5-5.1) 07/22/18 12:50 Chloride 105 mmol/L (98-107) 07/22/18 12:50 Carbon Dioxide 27.4 mmol/L (21.0-32.0) 07/22/18 12:50 Anion Gap 8.6 mmol/L (3-11) 07/22/18 12:50 BUN 12 mg/dL (7-18) 07/22/18 12:50 Creatinine 1.02 mg/dL (0.55-1.02) 07/22/18 12:50 Estimated GFR/1.73 m2 52.14 (mL/min/1.73m2) 07/22/18 12:50 Glucose 127 mg/dL (70-100) H 07/22/18 12:50 Calcium 8.9 mg/dL (8.5-10.1) 07/22/18 12:50 Total Bilirubin 0.4 mg/dL (0.2-1.0) 07/22/18 12:50 AST 24 U/L (15-37) 07/22/18 12:50 ALT 26 U/L (12-78) 07/22/18 12:50 Alkaline Phosphatase 76 U/L (46-116) 07/22/18 12:50 Total Protein 6.9 g/dL (6.4-8.2) 07/22/18 12:50 Albumin 3.3 g/dL (3.4-5.0) L 07/22/18 12:50 Objective Narrative Objective Narrative: She is afebrile vital signs are stable. Left hip is non- irritable gentle passive motion. She has good active ankle dorsiflexion and plantar flexion. She has normal sensation and circulation to the left foot.
--- NOTE | 2018-07-25 15:24 | PT.INTREAT ---
Date of service: 07/25/18 Time of Service: 14:45 PT Notes Inpatient Physical Therapy Treatment Note [facility] Date: 07/25/18 PRECAUTIONS:fall, standard SUBJECTIVE: Yuki states that she's feeling well. She'd like to get up to use the restroom. OBJECTIVE: PAIN: well managed BED MOBILITY/TRANSFERS Sit-stand: SBA Stand-sit: SBA Bed-Chair: SBA with WW GAIT Assistive Device: WW Weight bearing: as tolerated Assist: CG Distance: 20'x1; 75'x1 Deviation: single LOB due to poor equipment management; requires cues throughout for WW management, hand placement, etc. THEREX: Patient was instructed in a progressed therex program, with introduction of closed chain strengthening and weight shifting activities. She received patient education regarding equipment management, and performed sit<->stand activities for LE strengthening and safety training. ASSESSMENT: Demonstrating significantly improved activity tolerance today, with progression to 75' of ambulation. PLAN: Re-eval tomorrow for potential recommendation for d/c. TREATMENT CODE/TIME: 30 minutes ([id number])
[2018-07-26 03:40] VITALS: BP 165/80; PULSE 110; RESP 18; TEMP 37.4; O2SAT 94
[2018-07-26 07:31] VITALS: BP 125/70; PULSE 115; RESP 18; TEMP 37.8; O2SAT 96
[2018-07-26] MEDS: Acetaminophen 325 MG TAB 650 MG PO ×2 (07:39→11:50)
[2018-07-26] MEDS: Pantoprazole 40 MG TABCR PO (07:40)
[2018-07-26] MEDS: Multivitamin w/Minerals TAB 1 TAB PO (07:40)
[2018-07-26] MEDS: Metoprolol 12.5 MG TAB PO (07:40)
[2018-07-26] MEDS: Docusate Sodium 100 MG CAP PO ×2 (07:40→13:04)
[2018-07-26 08:55] VITALS: BP 125/77; PULSE 90; O2SAT 96
--- NOTE | 2018-07-26 09:36 | PT.INTREAT ---
Date of service: 07/26/18 Time of Service: 09:36 PT Notes Inpatient Physical Therapy Treatment Note [facility] Date: 07/26/18 PRECAUTIONS: Fall SUBJECTIVE: Patient reports that she is feeling stiff this morning. OBJECTIVE: PAIN: No c/o pain BED MOBILITY/TRANSFERS Supine-sit: SBA with HOB flat with leg wool spotter (performed 2x) Sit-stand: Min A with HOB flat with leg wool spotter (Performed 1x), S with HOB flat with leg wool spotter (performed 1x) Stand-sit: SBA Bed-Chair: SBA GAIT Assistive Device: FWW Weight bearing: WBAT on L Assist: SBA Distance: 100' Deviation: Step-through instruct THEREX: Patient completed a LE strengthening and stabilization program, with a focus on glute strengthening, as per flow sheet. ASSESSMENT: Patient tolerated session well with c/o feeling weak. Patient tolerated a progression in gait distance with FWW support, with step-through instruction. Patient was instructed in use of leg wool spotter for aupine<>sit transfers, which she tolerated well, and demonstrates understanding. She would benefit from continued gait and transfer training, as well as strengthening for improved mobility. PLAN: Continue with PT's POC TREATMENT CODE/TIME: 30 minutes; ([id number], [id number])
[2018-07-26] MEDS: Enoxaparin 30 MG/0.3 ML SYR SC (10:29)
--- NOTE | 2018-07-26 10:41 | PDOC.CMDIS ---
LACE Index Scoring Tool - Questions: Length of Stay (in days): 3 Acuity (Admit via E.D.?): Yes Comorbidities: Any Tumor E.D. Visits: 1 - Answers: Total Score: 9 Risk of Readmission: Low Risk Care Management Discharge Reason for Hospitalization: Left Hip Fracture Discharge Plan: Yuki will return home with new orders for PT/OT per MD. Yuki reports being in agreement with discharge plan and shares that her family has removed the glass doors from her shower, fitted a hand held shower and placed a shower chair. She reports having all needed DME due to her daughter recently having hip surgery. She will transport via private vehicle with family. Patient/Family Education Needs: Review of discharge instructions, discuss self care needs upon discharge Ask Me Three. Services Needed at Discharge: Home Health Care Services (NEW PT/OT)
--- NOTE | 2018-07-26 11:40 | PT.INTREAT ---
Date of service: 07/26/18 Time of Service: 11:40 PT Notes Inpatient Physical Therapy Treatment Note [facility] Date: 07/26/18 PRECAUTIONS: WBAT on L SUBJECTIVE: Yuki states that she has had a busy morning, she feels that she is ready to discharge to home today. OBJECTIVE: PAIN: Patient c/o discomfort in L hip with weight bearing BED MOBILITY/TRANSFERS Sit-stand: SBA Stand-sit: SBA GAIT Assistive Device: FWW Weight bearing: WBAT on L Assist: SBA Distance: 50' Deviation: Step-through gait pattern instruction ASSESSMENT: Patient tolerated gait training with c/o discomfort in L hip. Patient requires skilled instruction for step-through gait pattern as well as for appropriate FWW mechanics with step-through pattern. She was able to demonstrate step-through gait pattern, although with some difficulty due to L hip discomfort with weight bearing at this time. PLAN: As per primary PT TREATMENT CODE/TIME: 10 minutes; ([id number])
[2018-07-26 11:43] VITALS: BP 131/70; PULSE 103; RESP 20; TEMP 37.6; O2SAT 96
--- NOTE | 2018-07-26 12:13 | PDOC.HHF2F ---
1. Encounter Date and Reason I certify that ROLF TERRY was seen by Stanley Cortez MD on 07/26/18 and that I had a [id number] encounter with this patient that meets the physician face to face encounter requirements. 2. Clinical Findings Supporting Skilled Need and Homebound Status I certify that home health services are medically necessary, include either intermittent longterm and/or physical/speech therapy, and that this patient is homebound in that absences from the home require considerable and taxing effort and are infrequent or of short duration, or are attributable to the need to receive medical care. [X] (a) Attached documentation from encounter provides clinical findings supporting skilled need and homebound status (including what assistance patient requires to leave the home). The encounter with the patient was in whole, or in part, for the following medical condition, which is the primary reason for home health care: LEFT HIP FRACTURE Intermediate: Physical Therapy: Needs PT and OT for mobilization following prosthetic replacement of the right femoral head for femoral neck fracture. Speech Therapy: Homebound: She meets the criteria for being homebound due to limited ambulation from hip fracture. She does not drive and has very limited mobility preventing her from attending outpatient PT. 3. Certification and Authentication I certify that I composed the above information based on my clinical judgement relating to this patient's medical condition and, if applicable, clinical findings communicated to me by the NPP or inpatient physician who performed the Home Health Referral. All further orders will be obtained through (Community Based Physician - PCP)
--- NOTE | 2018-07-26 12:16 | HHF2F_ITS ---
1. Encounter Date and Reason I certify that ROLF TERRY was seen by Stanley Cortez MD on 07/26/18 and that I had a [id number] encounter with this patient that meets the physician face to face encounter requirements. 2. Clinical Findings Supporting Skilled Need and Homebound Status I certify that home health services are medically necessary, include either intermittent long term and/or physical/speech therapy, and that this patient is homebound in that absences from the home require considerable and taxing effort and are infrequent or of short duration, or are attributable to the need to receive medical care. [X] (a) Attached documentation from encounter provides clinical findings supporting skilled need and homebound status (including what assistance patient requires to leave the home). The encounter with the patient was in whole, or in part, for the following medical condition, which is the primary reason for home health care: LEFT HIP FRACTURE Assisted: Physical Therapy: Needs PT and OT for mobilization following prosthetic replacement of the right femoral head for femoral neck fracture. Speech Therapy: Homebound: She meets the criteria for being homebound due to limited ambulation from hip fracture. She does not drive and has very limited mobility preventing her from attending outpatient PT. 3. Certification and Authentication I certify that I composed the above information based on my clinical judgement relating to this patient's medical condition and, if applicable, clinical findings communicated to me by the NPP or inpatient physician who performed the Home Health Referral. All further orders will be obtained through (Community Based Physician - PCP)
--- NOTE | 2018-07-26 12:16 | W.PM.DS.N ---
Date of service: 07/26/18 Time of Service: 12:16 DS: Diagnosis Discharge Diagnosis (1) Femoral neck fracture: Status: Acute Discharge Plan Disposition Patient Disposition: HOME W/HOME HEALTH SERVICE Condition: Good Discharge Details Chief Complaint: Orthopedic Clinical Impression: Closed fracture of left hip Reason For Visit: LEFT HIP FRACTURE Admit Date/Time: 07/23/18 14:40 Admit Provider: Stanley Cortez Attending Provider: Stanley Cortez Primary Care Provider: Zaid Ballesteros ED Provider: Giovanni Barajas Hospital Course Hospital Course: Yuki fell in her home when she tripped over a sock on 07/22/2018. She went to the emergency room where she was admitted for prosthetic replacement of the left femoral head for femoral neck fracture. A fascia patricia block was performed by anesthesia in the emergency room for pain control. She was taken to the operating room the following day on 07/23/2018 where she underwent unipolar prosthetic replacement of her left femoral head. She was noted to have had an avulsion of the abductors from her greater trochanter. This was repaired at the time of her unipolar replacement. Postoperatively she did extremely well. She was afebrile within 24 hours of the surgery. Karl was DC'd on 07/24/2018. Hemoglobin stabilized and she did not require transfusion. She was off narcotics within 24 hours of the surgery. She was independent with transfers, ambulation in the room and going up and down 3 or 4 stairs by time of discharge. By 07/26/2018 it was felt that she had completed her acute care goals and was ready for home discharge. Home health PT/OT was requested. Home Meds and New Rx's Prescriptions: New hydrocodone-acetaminophen 5-325 mg tablet 1 tab PO Q6H PRN (Reason: pain) Qty: 7 RF: 0 Continued metoprolol tartrate 25 mg Tablet 12.5 mg PO BID RF: 0 Discharge Instructions Additional Instructions: Use walker to ambulate weightbearing as tolerated left leg. May shower and get paulo wet. Cover paulo with light gauze dressing so they do not catch on clothing. Total hip precautions for 6 weeks. Should take 1 baby aspirin twice a day for 30 days to prevent blood clots in the legs. Wear the elastic stockings during the daytime only for 2 weeks. Take Aleve 1-2 tablets twice a day for pain. Take hydrocodone if needed for breakthrough pain only. Home health PT and OT. Follow-up with Dr. Cortez's office in 2 weeks for staple removal. Care Plan Goals: [place] with ambulation and transfers and activities of daily living. Stand Alone Forms: Nursing Discharge Form Referrals: Zaid Ballesteros MD [Primary Care Provider] - Stanley Cortez MD [ [facility] STAFF PHYSICIAN] - (f/u in 2 weeks) Activity:: Activity as Tolerated Equipment/Supplies:: Walker Diet:: As Tolerated Discharge Orders Discharge Orders: Discharge Order (Routine); Ordered 07/26/18 Ordered By: Stanley Cortez DS: Data Vitals/I&O Vitals and I&O: Vital Signs Temperature 37.6 C H 07/26/18 11:43 Temperature Source Tympanic 07/26/18 11:43 Pulse 103 H 07/26/18 11:43 Pulse Rhythm Regular 07/26/18 07:43 Respiratory Rate 20 07/26/18 11:43 Respiratory Effort Non-Labored 07/26/18 08:02 Respiratory Depth Normal 07/26/18 08:02 Respiratory Pattern Normal 07/26/18 08:02 Blood Pressure 131/70 07/26/18 11:43 Blood Pressure Position Supine 07/22/18 12:03 Pulse Oximetry 96 07/26/18 11:43 Respiratory End-tidal CO2 29 07/23/18 12:14 Oxygen Delivery Method Room Air 07/26/18 11:43 Oxygen Flow Rate 0 07/26/18 11:43 Pain Level 2 07/26/18 11:50 Comment 07/26/18 08:55 Intake & Output 07/25/18 07/26/18 07/26/18 23:59 11:59 23:59 Intake Total 693 / 2310 850 / 850 Output Total 150 / 1800 1500 / 1500 Balance 543 / 510 -650 / -650 Intake: IV 693 / 935 Oral 850 / 850 Output: Urine 150 / 1800 1500 / 1500 Other: Urine Color Yellow Urine Appearance Clear Urine Odor Normal Voiding Methods [facility]ilet [facility] Medical History Femoral neck fracture (Acute) Surgical History Cholecystectomy (12/30/16) Social History Smoking/Tobacco Use Status: Former Tobacco Use
[2018-07-26] MEDS: HYDROcodone 5/Acetaminophen 325 TAB PO (13:04)
--- NOTE | 2018-07-27 10:07 | PT.INDS ---
Date of service: 07/27/18 Time of Service: 10:07 PT Notes Date: 07/27/18 Referring Doctor: Dr. Cortez PT Orders: PT CONSULT: Mobilize postop unipolar prosthesis left hip; WBAT to left lower extremity Precautions: standard, fall Treatment Dates: 07/24/18 - 07/26/18 THIS DOCUMENT SERVES A SUMMARY OF CARE. NO PHYSICAL THERAPY SERVICES WERE PROVIDED ON THIS DATE. Patient Profile/Admitting Diagnosis: Patient admitted after a fall at home resulting in hip fracture. She underwent surgery 07/23/18, and participated in PT intervention 2x/day following surgery. She was able to return home with family support after PT sessions yesterday. PMHX: Cataracts, Breast Cancer, hypertension, vertigo, bursitis L HIP, back pain, colonoscopy, lumpectomy RT, ankle, former tobacco use Social History/Home Situation: Patient lives alone in a single level home with 3 MURPHY. She has supportive family in the area. She does not typically utilize an assistive device, although states that she owns a wheeled walker that she plans to use upon her return home. Current Functional Limitations: Patient states that she was up to the chair with nursing this morning, and that she felt good. Equipment Owned/DME: WW, shower chair, leg assembly person Subjective: None obtained, as patient had been discharged home prior to documentation. Objective: ROM: Right Upper Extremity: Grossly within normal limits Left Upper Extremity: Grossly within normal limits Right Lower Extremity: Grossly within normal limits Left Lower Extremity: Hip flexion allows 80 degrees functionally; not assessed beyond this point. External rotation allows neutral only, with patient resting in slight internal rotation when not supported externally with pillows. Abduction allows 20 degrees. Knee motion is functionally within normal limits. Strength: Right Upper Extremity: Shoulder flexion 3/5. Biceps 4+/5. Triceps 4/5. Left Upper Extremity: Shoulder flexion 3/5. Biceps 4+/5. Triceps 4/5. Right Lower Extremity: Hip Flexion 4+/5. Quads 4+/5. Hamstrings 4/5. Ankle dorsiflexion 4+/5. Left Lower Extremity: Quads 3/5. Hamstrings 3/5. Ankle dorsiflexion 4+/5. Sensation: Intact distally Bed Mobility/Transfers: Sit to supine: min A with use of leg assembly person, HOB at 0 degrees supine->sit: SBA with use of leg assembly person, HOB at 0 degrees Sit to stand: SBA Stand to sit:SBA Bed to chair: SBA with wheeled walker Gait: Patient able to ambulate 100' feet with wheeled walker and SBA, weightbearing as tolerated left lower extremity. She was able to manage therapeutic stairs with bilat UE support to rails and CG-min A. Balance: Static Sitting: Good Dynamic Sitting: Good Static Standing: Fair Dynamic Standing: Fair Assessment: Patient is a 78 year old female referred to physical therapy services with the diagnosis of left hip fracture, status post unipolar prosthesis 07/23/2018. She participated in PT intervention 2x/day for 3 days, with significant improvements in her functional mobility and independence. She was provided with a hip kit and instructed in appropriate use and posterior hip precautions. She is appropriate for discharge home with family support. Goals: Goals X1 week 1. Supine-Sit: Supervision (met) 2. Sit-Supine: Supervision (progressing toward) 3. Sit-Stand : Supervision (met) 4. Stand-Sit : Supervision(met) 5. Bed-Chair : Supervision with WW(met) 6. Chair-Bed : Supervision with WW(met) 7. Gait : 50' with WW, supervision(met) 8. Stairs : ascend and descend 6 steps x 3 with bilat rails(met) Plan of Care/Treatment Plan: Discharge home with family assistance. DISCHARGE RECOMMENDATIONS: Home with family assistance, no equipment needs
--- NOTE | 2018-07-27 10:15 | INDS_ITS ---
Date of service: 07/27/18 Time of Service: 10:07 PT Notes Date: 07/27/18 Referring Doctor: Dr. Cortez PT Orders: PT CONSULT: Mobilize postop unipolar prosthesis left hip; WBAT to left lower extremity Precautions: standard, fall Treatment Dates: 07/24/18 - 07/26/18 THIS DOCUMENT SERVES A SUMMARY OF CARE. NO PHYSICAL THERAPY SERVICES WERE PROVIDED ON THIS DATE. Patient Profile/Admitting Diagnosis: Patient admitted after a fall at home resulting in hip fracture. She underwent surgery 07/23/18, and participated in PT intervention 2x/day following surgery. She was able to return home with family support after PT sessions yesterday. PMHX: Cataracts, Breast Cancer, hypertension, vertigo, bursitis L HIP, back pain, colonoscopy, lumpectomy RT, ankle, former tobacco use Social History/Home Situation: Patient lives alone in a single level home with 3 MURPHY. She has supportive family in the area. She does not typically utilize an assistive device, although states that she owns a wheeled walker that she plans to use upon her return home. Current Functional Limitations: Patient states that she was up to the chair with nursing this morning, and that she felt good. Equipment Owned/DME: WW, shower chair, leg primer waterproofing machine operator Subjective: None obtained, as patient had been discharged home prior to documentation. Objective: ROM: Right Upper Extremity: Grossly within normal limits Left Upper Extremity: Grossly within normal limits Right Lower Extremity: Grossly within normal limits Left Lower Extremity: Hip flexion allows 80 degrees functionally; not assessed beyond this point. External rotation allows neutral only, with patient resting in slight internal rotation when not supported externally with pillows. Abduction allows 20 degrees. Knee motion is functionally within normal limits. Strength: Right Upper Extremity: Shoulder flexion 3/5. Biceps 4+/5. Triceps 4/5. Left Upper Extremity: Shoulder flexion 3/5. Biceps 4+/5. Triceps 4/5. Right Lower Extremity: Hip Flexion 4+/5. Quads 4+/5. Hamstrings 4/5. Ankle dorsiflexion 4+/5. Left Lower Extremity: Quads 3/5. Hamstrings 3/5. Ankle dorsiflexion 4+/5. Sensation: Intact distally Bed Mobility/Transfers: Sit to supine: min A with use of leg primer waterproofing machine operator, HOB at 0 degrees supine->sit: SBA with use of leg primer waterproofing machine operator, HOB at 0 degrees Sit to stand: SBA Stand to sit:SBA Bed to chair: SBA with wheeled walker Gait: Patient able to ambulate 100' feet with wheeled walker and SBA, weightbearing as tolerated left lower extremity. She was able to manage therapeutic stairs with bilat UE support to rails and CG-min A. Balance: Static Sitting: Good Dynamic Sitting: Good Static Standing: Fair Dynamic Standing: Fair Assessment: Patient is a 78 year old female referred to physical therapy services with the diagnosis of left hip fracture, status post unipolar prosthesis 07/23/2018. She participated in PT intervention 2x/day for 3 days, with significant improvements in her functional mobility and independence. She was provided with a hip kit and instructed in appropriate use and posterior hip precautions. She is appropriate for discharge home with family support. Goals: Goals X1 week 1. Supine-Sit: Supervision (met) 2. Sit-Supine: Supervision (progressing toward) 3. Sit-Stand : Supervision (met) 4. Stand-Sit : Supervision(met) 5. Bed-Chair : Supervision with WW(met) 6. Chair-Bed : Supervision with WW(met) 7. Gait : 50' with WW, supervision(met) 8. Stairs : ascend and descend 6 steps x 3 with bilat rails(met) Plan of Care/Treatment Plan: Discharge home with family assistance. DISCHARGE RECOMMENDATIONS: Home with family assistance, no equipment needs
== END 2018-07-26 14:28 | disposition home health service (06) | DRG 470 ==
LOC: ER 15:04 → MS 16:32
PROVIDERS: Admitting Provider Orthopaedic Surgery; Emergency Provider Student in an Organized Health Care Education/Training Program; PCP General Practice; Visit Provider Orthopaedic Surgery
PROC: 0SRS039 Replacement of Left Hip Joint, Femoral Surface with Ceramic Synthetic Substitute, Cemented, Open Approach (ICD-10-PCS; CPT 27125; principal; 2018-07-23 09:00)
DX: S72.002A Fracture of unspecified part of neck of left femur, initial encounter for closed fracture (principal); S76.2 Injury of adductor muscle, fascia and tendon of thigh; W18.09XA Striking against other object with subsequent fall, initial encounter; R00.0 Tachycardia, unspecified; I10 Essential (primary) hypertension; E78.00 Pure hypercholesterolemia, unspecified; Y92.019 Unspecified place in single-family (private) house as the place of occurrence of the external cause
CPT/HCPCS: 27236; 36415; 64450; 76942; 80053; 85027; 96374; 97110; 97162; 97530; 99219; 99221; 99285; C1713; NC; 72170; 73502; 85025; G0378; J0690; J1650; J1885; J2250; J2270; J2370; J3010; J3490; L1686

== ENCOUNTER → 2018-08-09 09:34 | Outpatient (BNVA) | payer MEDICARE, SELFPAY | PROVIDERS: PCP General Practice; Referring Provider General Practice; Visit Provider Orthopaedic Surgery | DX: S72.002D Fracture of unspecified part of neck of left femur, subsequent encounter for closed fracture with routine healing (principal); X58.XXXD Exposure to other specified factors, subsequent encounter ==

== ENCOUNTER → 2018-09-20 09:58 | Outpatient (BNVA) | payer MEDICARE, SELFPAY | PROVIDERS: PCP General Practice; Referring Provider General Practice; Visit Provider Orthopaedic Surgery | DX: S72.002D Fracture of unspecified part of neck of left femur, subsequent encounter for closed fracture with routine healing (principal); W01.0XXD Fall on same level from slipping, tripping and stumbling without subsequent striking against object, subsequent encounter ==

== ENCOUNTER 2018-09-28 08:34 | Outpatient (CLI) | payer MEDICARE, SELFPAY ==
[2018-09-28 09:59] LABS: Glucose 83 mg/dL (70-100)
== END 2018-09-28 08:54 ==
PROVIDERS: PCP General Practice; Visit Provider General Practice
DX: R73.09 Other abnormal glucose (principal)
CPT/HCPCS: 36415; 82947

== ENCOUNTER 2019-12-13 02:45 | Outpatient (CLI) | payer MEDICARE, SELFPAY ==
--- NOTE | 2019-12-13 13:00 | DI.MAMMO_ITS ---
EXAM: MG MAMMO SCREENING 60 MIN DUR CLINICAL HISTORY: breast cancer screening, personal h/o breast ca, Z85.3 TECHNIQUE: Mammograms were interpreted according to the usual protocol including computer analysis w [employer] CAD system, tomosynthesis and C-view imaging. COMPARISON: FINDINGS: The breasts are heterogeneously dense. Patient reportedly had prior history lumpectomy for breast ca rcinoma. No dominant mass or clumped microcalcification identified in either breast. Current examin ation is compared with multiple previous examinations including May 2018 and there has been no g ross interval change in appearance comparison with previous studies. IMPRESSION: No specific evidence of malignancy at this time. Routine screening examinations are suggested at yea rly intervals due to the history of breast carcinoma. BI-RADS Cat 1 - Negative: Breast Density - Category C - Heterogeneously dense:
== END 2019-12-13 03:05 ==
DX: Z12.31 Encounter for screening mammogram for malignant neoplasm of breast (principal); Z85.3 Personal history of malignant neoplasm of breast; Z98.890 Other specified postprocedural states
CPT/HCPCS: 77063; 77067

== ENCOUNTER 2020-03-10 17:51 | Inpatient (IN) | payer MEDICARE, SELFPAY ==
--- NOTE | 2020-03-10 17:45 | RT.EKG_ITS ---
APPROVED REPORT Exam: Resting ECG Patient Location: E HR:86 bpm ECG Measurements Heart Rate 86 AXIS NJ 199 P 57 QRSd 119 QRS -41 QT 422 T 74 QTc 506 Conclusion EKG 7: 59 Rate 86, sinus rhythm, QT is 422, ST elevation of 1 mm in V1, just less than 2 mm in V2, and 1 mm in V3, questionable left bundle branch block as a causative agent, negative for SCARBOSSA criterion. No reciprocal depressions. Review of prior EKG from 2017 demonstrates unchanged findings.
--- NOTE | 2020-03-10 17:45 | DI.RAD_ITS ---
EXAM: XR HIP RT COMPLETE AP PELVIS CLINICAL HISTORY: fall, suspect right hip fracture. TECHNIQUE: 2D digital imaging was performed. COMPARISON: No exams were available for comparison FINDINGS: BONES: Impacted acute intertrochanteric fracture of the right femur. No bony destructive lesion is s een. JOINTS: No dislocation present. Prior left hip prosthesis. SOFT TISSUE: Normal. IMPRESSION: Acute intertrochanteric fracture of the right femur. Unremarkable radiographs of the pelvis. DATA REPOSITORY: RADIATION DOSE DELIVERED:
[2020-03-10 17:51] VITALS: BP 154/76; PULSE 90; RESP 14; TEMP 36.3; O2SAT 95
--- NOTE | 2020-03-10 17:56 | W.ED.GENAD ---
Discharge Plan Disposition Patient Disposition: [facility] INPATIENT Condition: Stable Discharge Details Chief Complaint: Orthopedic Clinical Impression: Closed fracture of right hip Primary Care Provider: Darling Alanis ED Provider: Giovanni Barajas Home Meds and New Rx's Prescriptions: No Action ibuprofen 200 mg tablet 400 mg PO PRN RF: 0 metoprolol tartrate 25 mg tablet 12.5 mg PO BID Qty: 90 RF: 2 Medical Decision Making This is an 80-year-old female with a past medical history of breast cancer, previous left hip fracture for which I saw her for a year ago, and no other significant past medical history except for mild hypertension chronic vertigo who presents today for evaluation of right hip pain. Patient states that she was walking when she had a mechanical slip fall and landed on her right hip. She was on the ground for an hour. She admits to mild pain, she denies any numbness tingling otherwise. She did not hit her head. She denies any chest or abdominal pain. No other complaints at this time. Physical exam demonstrates an externally rotated right hip, but no significant shortening. Vital signs are stable, sensation intact, distal pulses +2 bilaterally. Signs and symptoms are concerning for hip fracture. Will get an x-ray, screening EKG. 6:30 PM X-ray results demonstrate a closed acute intertrochanteric fracture of the proximal right femur. Neurovascular exam remains intact, pain well controlled. Will place a Barajas catheter. I contacted Dr. Cortez and discussed the case with him. He does confer the need for surgery and would like the patient admitted. I contacted the hospitalist Dr. Duffy, discussed the case with him. He accepts the patient for admission. I will place bridging orders on his behalf. I have extensively reviewed the treatment plan with the patient. I have addressed all patient concerns at this time. I have also discussed the plan with the admitting physician and they agree with the current assessment and plan and have agreed to assume responsibility for the patient. All parties demonstrate verbal understanding and agreement with our assessment and plan at this time. EKG 7: 59 Rate 86, sinus rhythm, QT is 422, ST elevation of 1 mm in V1, just less than 2 mm in V2, and 1 mm in V3, questionable left bundle branch block as a causative agent, negative for SCARBOSSA criterion. No reciprocal depressions. Review of prior EKG from 2017 demonstrates unchanged findings. FINDINGS: Bones/joints: Closed, acute, intertrochanteric fracture of the proximal right femur. No dislocation. No joint space narrowing or degenerative change. Prior left total hip replacement. Soft tissues: Unremarkable. IMPRESSION: Closed, acute, intertrochanteric fracture of the proximal right femur. Thank you for allowing us to participate in the care of your patient. Dictated and Authenticated by: Kp Longo MD 03/10/2020 6:27 PM Eastern Time ([place] & [place]) HPI General Date/Time Provider Initiated Documentation: 03/10/20 17:53. HPI Narrative: This is an 80-year-old female with a past medical history of breast cancer, previous left hip fracture for which I saw her for a year ago, and no other significant past medical history except for mild hypertension chronic vertigo who presents today for evaluation of right hip pain. Patient states that she was walking when she had a mechanical slip fall and landed on her right hip. She was on the ground for an hour. She admits to mild pain, she denies any numbness tingling otherwise. She did not hit her head. She denies any chest or abdominal pain. No other complaints at this time. Related Data Home Medications Medication Instructions Recorded Confirmed ibuprofen 200 mg tablet 400 mg PO PRN tab 09/17/19 03/10/20 metoprolol tartrate 25 mg tablet 12.5 mg PO BID #90 tab 10/30/19 03/10/20 Previous Rx's Medication Instructions Recorded metoprolol tartrate 25 mg tablet 12.5 mg PO BID #90 tab 10/30/19 Allergies Allergy/AdvReac Type Severity Reaction Status Date / Time chocolate flavor AdvReac Mild Constipatio Verified 03/10/20 17:56 n General Stated Complaint: Orthopedic NOHEMY: 3 Review of Systems All systems reviewed & are unremarkable except as noted in HPI and below [facility] Medical History Breast cancer (Chronic) Right - Lumpectomy 1997, chemo & radiation Bursitis of left hip (Acute) Femoral neck fracture (Acute) Functional bowel disorder (Chronic) constipation and diarrhea Hypertension (Chronic) Impacted cerumen of both ears (Acute) Vertigo (Acute) Surgical History Cholecystectomy (12/30/16) H/O lumpectomy (Acute) History of open reduction and internal fixation (ORIF) procedure (Acute) Left hip Family History Mother , age 93 No problems noted. Father , age 82 No problems noted. Brother , age 82 No problems noted. Maternal Grandfather , age 95 No problems noted. Maternal Grandmother , age 65 No problems noted. Social History Smoking/Tobacco Use Status: Former Tobacco Use Quit Date: 07/11/98 Second Hand Exposure: Yes Alcohol Intake: current Alcohol Intake frequency: holidays/special occasions only Drug use: Never Substance use type: does not use Counseling given: No Counseling provided: none Caregiver/Support person: No Household members: none Housing: house Communication Needs: None Do you need help understanding health information?: Rarely Pets and animals: No Sexually active: No Current gender identity: decline to answer What is your relationship status?: How often do you talk on the phone with friends or family?: three or more times per week How often do you get together with friends or relatives?: three or more times per week How often do you attend judaism or episcopal services?: 1-3 times per year Do you belong to any clubs or organized social groups?: decline to answer Panel score (0-1 are the most socially isolated patients): 1 What type of physical activity do you participate in: decline to answer Duration: decline to answer Frequency: decline to answer Jennie/Scientologist: chr Special jennie needs: No Seatbelt use: always Drive intox or ride w/intox spike driver: No Do you feel safe at home: Yes Do you feel safe in your relationship?: Yes Exam Narrative Exam Narrative: 1.Const: Well-nourished, Well-developed, appearing stated age 2.Eyes: PERRL, no conjunctival injection, and symmetrical lids. 3.ENT: Atraumatic external nose and ears. Moist MM. Neck: Symmetric, trachea midline, No thyromegaly. 4.CVS: +S1/S2, No murmurs or gallops. Peripheral pulses 2+ and equal in all extremities. Brisk capillary refill in all extremities. 5.RESP: Unlabored respiratory effort. Clear to auscultation bilaterally. No wheezes rales or rhonchi 6.GI: Soft, Nontender/Nondistended, No hepatosplenomegaly. No guarding or rebound. 7.MSK: Normocephalic/Atraumatic, hip is stable to AP and lateral compression. No evidence of open book fracture. No evidence of significant deformity, slight external rotation of the right leg, but no significant shortening. Sensation present throughout including in the groin. Mild tenderness with movement of the hip. Patient is unable to lift or move the hip at all though. She does demonstrate good movement sensation for the toes and feet and knee otherwise. No midline cervical thoracic or lumbar spine tenderness. 8.Skin: Warm, Dry. No rashes or lesions. 9.Neuro: entry level paralegal II-XII grossly intact. Sensation grossly intact, no focal neurologic deficits. 10.Psych: (AAO) x3. Appropriate mood and affect Course Vital Signs Vital signs: Vital Signs Temperature 36.3 C L 03/10/20 17:51 Pulse 90 03/10/20 17:51 Respiratory Rate 14 03/10/20 17:51 Blood Pressure 154/76 H 03/10/20 17:51 Pulse Oximetry 95 03/10/20 17:51 Temperature 36.3 C L 03/10/20 17:51 Temperature Source Tympanic 03/10/20 17:51 Pulse 90 03/10/20 17:51 Respiratory Rate 14 03/10/20 17:51 Respiratory Effort Non-Labored 03/10/20 17:55 Blood Pressure 154/76 H 03/10/20 17:51 Blood Pressure Position Sitting 03/10/20 17:51 Pulse Oximetry 95 03/10/20 17:51 Oxygen Delivery Method Room Air 03/10/20 17:51 Oxygen Flow Rate 0 03/10/20 17:51 Pain Level 0 03/10/20 17:51
--- NOTE | 2020-03-10 18:27 | DI.VRAD_ITS ---
PROCEDURE INFORMATION: Exam: XR Right Hip with Pelvis when Performed Exam date and time: 03/10/2020 6:11 PM Age: 80 years old Clinical indication: Right hip pain TECHNIQUE: Imaging protocol: XR Right hip with pelvis when performed. Views: 2 or 3 views. COMPARISON: SC XR pelvis AP 07/23/2018 12:03 PM FINDINGS: Bones/joints: Closed, acute, intertrochanteric fracture of the proximal right femur. No dislocation. No joint space narrowing or degenerative change. Prior left total hip replacement. Soft tissues: Unremarkable. IMPRESSION: Closed, acute, intertrochanteric fracture of the proximal right femur. Dictated and Authenticated by: Kp Longo MD. Ordering:SELENE Davila MD
[2020-03-10 19:27] VITALS: BP 143/70; PULSE 96; RESP 18; O2SAT 99
[2020-03-10] MEDS: Acetaminophen 325 MG TAB 650 MG PO (19:33)
[2020-03-10 19:50] VITALS: BP 146/73; PULSE 87; RESP 18; TEMP 36.7; O2SAT 96
[2020-03-10] MEDS: Metoprolol 25 MG TAB 12.5 MG PO (21:24)
--- NOTE | 2020-03-10 21:36 | W.PM.HP.N ---
Date of service: 03/10/20 Time of Service: 21:36 Assessment and Plan Assessment and plan (1) Closed fracture of right hip: Status: Acute Assessment and plan: She fractured her right hip with an innocent sounding fall. There does not appear to be any other acute injuries. We will make her n.p.o. after midnight. We will keep her on her metoprolol 25 twice daily. Hold on any anticoagulants. Consult Dr. Stanley Cortez from orthopedics who plans to see her in the a.m. There does not appear to be any cardiorespiratory contraindications to proceeding with right hip repair. (2) Hypertension: Status: Chronic Assessment and plan: Blood pressure 146/73. We will keep her on her metoprolol 25 mg twice daily. Qualifiers: Hypertension type: essential hypertension Qualified Code(s): I10 - Essential (primary) hypertension History of Present Illness History of Present Illness Chief Complaint: Right intertrochanteric hip fracture Narrative: This is an 80-year-old woman who lives independently in her own home. Today she suffered an innocent fall. She describes standing in her kitchen and turning to the right and falling onto her right hip. She states she was down for about an hour. EMS was summoned and she was brought to the emergency room. In the emergency room she had mild pain primarily when she tries to move her right leg. She had no numbness or tingling in that right leg. She did not hit her head in the fall. She had no other injuries to her chest or abdomen. A hip film showed an intertrochanteric hip fracture of the right. Dr. Cortez was informed from the emergency room and recommended admitting to the hospitalist service. His plan is to see the patient in the a.m. Review of Systems Narrative: Patient functions independently in her own home. Her son looks in on her daily. She is generally well. She has no problems with chest pain or shortness of breath. She has had a limp and gait disorder for many years now including prior to her left hip fracture last year. She apparently had gluteal muscles that had to be reattached but despite this she has continued to limp. She does not attribute her fall to her gait instability. COUNT INCLUDES THE [facility] Medical History Breast cancer (Chronic) Right - Lumpectomy 1997, chemo & radiation Bursitis of left hip (Acute) Femoral neck fracture (Acute) Functional bowel disorder (Chronic) constipation and diarrhea Hypertension (Chronic) Impacted cerumen of both ears (Acute) Vertigo (Acute) Surgical History (Updated 03/10/20 @ 21:40 by Lloyd Perez MD) Cholecystectomy (12/30/16) H/O lumpectomy (Acute) History of open reduction and internal fixation (ORIF) procedure (Resolved) Left hip 2019 Family History Mother , age 93 No problems noted. Father , age 82 No problems noted. Brother , age 82 No problems noted. Maternal Grandfather , age 95 No problems noted. Maternal Grandmother , age 65 No problems noted. Social History Smoking/Tobacco Use Status: Former Tobacco Use Quit Date: 07/11/98 Second Hand Exposure: Yes Alcohol Intake: current Alcohol Intake frequency: holidays/special occasions only Drug use: Never Substance use type: does not use Counseling given: No Counseling provided: none Caregiver/Support person: No Household members: none Housing: house Communication Needs: None Do you need help understanding health information?: Rarely Pets and animals: No Sexually active: No Current gender identity: decline to answer What is your relationship status?: How often do you talk on the phone with friends or family?: three or more times per week How often do you get together with friends or relatives?: three or more times per week How often do you attend christianity or jewish services?: 1-3 times per year Do you belong to any clubs or organized social groups?: decline to answer Panel score (0-1 are the most socially isolated patients): 1 What type of physical activity do you participate in: decline to answer Duration: decline to answer Frequency: decline to answer Jennie/Mormonism: chr Special jennie needs: No Seatbelt use: always Drive intox or ride w/intox route sales delivery drivers supervisor: No Do you feel safe at home: Yes Do you feel safe in your relationship?: Yes Meds Home Medications and Allergies Home Medications Medication Instructions Recorded Confirmed Type ibuprofen 200 mg tablet 400 mg PO PRN tab 09/17/19 03/10/20 History metoprolol tartrate 25 mg tablet 12.5 mg PO BID #90 tab 10/30/19 03/10/20 Rx Allergies Allergy/AdvReac Type Severity Reaction Status Date / Time chocolate flavor AdvReac Mild Constipatio Verified 03/10/20 17:56 n Exam Narrative Exam Narrative: On exam she appears younger than her stated age. She is quite alert and lucid. She is completely coherent. Her speech is clear. 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 It does not appear to affect her vision. She had no facial asymmetry. Her lungs sounded clear on the right and left. Her heart sounds sounded regular and strong. She had no abdominal tenderness to palpation. No masses were palpable. The right hip area showed no outward sign of deformity. She keeps it quite rigid and still. The distal right foot showed good overall perfusion and warmth. The left leg showed no obvious deformity. Neurologically she appears to have no acute deficits. Results Imaging Additional studies: The pelvic films showed an intertrochanteric fracture of the right hip. She has a unipolar prosthesis of the left hip that appears intact. EKG: report reviewed (Left bundle branch block pattern unchanged from prior) Last Vital Signs Temp 36.7 C 03/10/20 19:50 Pulse 87 03/10/20 19:50 Resp 18 03/10/20 19:50 BP 146/73 H 03/10/20 19:50 Pulse Ox 96 03/10/20 19:50 COVID-19 Screening Have you,or household,traveled outside [place] in last 14 days?: No Had IN PERSON contact w/suspected or confirmed C-19 person: No
[2020-03-10 23:40] VITALS: BP 145/76; PULSE 95; RESP 18; TEMP 36.2; O2SAT 96
[2020-03-10] MEDS: Acetaminophen 325 MG TAB (23:41)
[2020-03-11] VITALS (10 sets, daily range): BP systolic 98–128; BP diastolic 43–72; PULSE 78–114; RESP 16–24; TEMP 35.7–37.1; O2SAT 92–100
--- NOTE | 2020-03-11 | DI.RAD_ITS ---
EXAM: XR HIP RT AP LAT ONLY CLINICAL HISTORY: check reduction of I-T fx R hip in RR. TECHNIQUE: 2D digital imaging was performed. COMPARISON: CR,XR XR HIP RT COMPLETE AP PELVIS from 03/10/2020 FINDINGS: BONES: The patient is now status post reduction and internal fixation of the intertrochanteric right femoral fracture. Intramedullary jennifer and screw are seen transfixing the fracture. Alignment appears anatomic. No bony destructive lesion is seen. There is an old left hip prosthesis. JOINTS: No dislocation present. SOFT TISSUE: Postsurgical changes are seen in the soft tissues. IMPRESSION: Status post ORIF of the right femoral fracture. DATA REPOSITORY: RADIATION DOSE DELIVERED:
[2020-03-11] MEDS: Lactated Ringers 1,000 ML 80 ML IV ×3 (06:20→17:06)
--- NOTE | 2020-03-11 06:24 | INITIAL_ITS ---
- If Service Date Differs Date of service: 03/11/20 Time of Service: 06:24 Care Management Initial Assess REASON FOR HOSPITALIZATION:: hip fracture PAST MEDICAL HISTORY/PAST SURGICAL HISTORY:: Medical History . Breast cancer (Chronic). Right - Lumpectomy 1997, chemo & radiation. Bursitis of left hip (Acute). Femoral neck fracture (Acute). Functional bowel disorder (Chronic). constipation and diarrhea. Hypertension (Chronic). Impacted cerumen of both ears (Acute). Vertigo (Acute). Surgical History (Updated 03/10/20 @ 21:40 by Lloyd Perez MD). Cholecystectomy (12/30/16). H/O lumpectomy (Acute). History of open reduction and internal fixation (ORIF) procedure (Resolved). Left hip 2019 PREVIOUS FUNCTIONAL STATUS/SOCIAL/FAMILY SUPPORTS:: Yuki lives alone in [place], [place]. She has resided alone since losing her in 1994. Her son and daughter in law reside across the street and are supportive. Yuki has a healthy support network of family and friends including her daughter, Blanca and son in law who reside in [place] and grandchildren as well. CURRENT FUNCTIONAL STATUS:: CM was unable to meet with Yuki today as she was in the OR much of the day. ADVANCE DIRECTIVES:: None on file Has patient been provided with info about the portal/API?: Yes Did the patient sign up for the portal?: Yes (previously) CODE STATUS:: Full Code INSURANCE COVERAGE / FINANCIAL ISSUES:: Medicare. [employer] PRIMARY CARE PHYSICIAN:: Darling Alanis POTENTIAL DISCHARGE NEEDS:: Follow up with surgeon, PCP and discharge plan PATIENT/FAMILY EDUCATION NEEDS:: Discharge and follow up plans, limitations, Ask Me Three' TRANSPORTATION:: to be determined by disposition PLAN:: Yuki will be discharged home with home health services, vs going to a SNF for rehab. CM will work with Yuki and her family to determine the best options for her. CM will suppport Yuki and her family and assess for discharge planning needs.
[2020-03-11 07:38] LABS: Abs Immature Grans 0.02 10^3/uL (0.0-0.06); Absolute Basophil Count 0.04 10^3/uL (0.0-0.2); Absolute Eosinophil Count 0.11 10^3/uL (0.0-0.7); Absolute Lymphocyte Count 0.66 10^3/uL (1.2-3.4); Absolute Neutrophil Count 4.08 10^3/uL (1.2-6.7); Basophils % 0.8; Eosinophils % 2.1; HGB 8.9 g/dL (11.2-15.7); Immature Grans % 0.4; Lymphocytes % 12.7; MCH 29.1 pg (27.0-33.0); MCHC 31.8 % (32.0-36.0); MCV 91.5 fL (80-95); MPV 10.1 fL (8.0-11.0); Monocytes % 5.8; Neutrophils % 78.2; Nucleated RBC 0 %; Platelet Count 171 10^3/uL (130-400); RBC 3.06 10^6/uL (3.93-5.22); RDW 15.2 % (11.7-14.6); RDW-SD 50.9 fL; WBC 5.21 10^3/uL (4.4-10.8)
[2020-03-11 07:45] LABS: Anion Gap 7.6 mmol/L (3-11); BUN 19 mg/dL (7-18); CO2 26.4 mmol/L (21.0-32.0); CREATININE 1.06 mg/dL (0.55-1.02); Calcium 8.8 mg/dL (8.5-10.1); Chloride 108 mmol/L (98-107); Estimated GFR 49.63 (mL/min/1.73m2); Glucose 102 mg/dL (74-106); Potassium 4.6 mmol/L (3.5-5.1); Sodium 142 mmol/L (136-145)
[2020-03-11 08:34] LABS: Iron 77 ug/dL (50-170); Total Iron Binding Capacity 316 ug/dL (250-450); Transferrin Sat 24 % (15-50)
[2020-03-11 09:01] LABS: Ferritin 18 ng/mL (8-252); Folate 8.2 ng/mL (8.6-20.0); Vitamin B12 217 pg/mL (193-986)
[2020-03-11] MEDS: Metoprolol 25 MG TAB 12.5 MG PO ×2 (09:56→21:02)
--- NOTE | 2020-03-11 11:08 | CHAPLAIN ---
Yuki was resting in bed when I visited this morning. She is waiting to have surgery on her hip this afternoon. Yuki is a member of [facility] and gave me permission to let her shoe repairer helper know that she is here. Yuki said she is well supported by family, with a son and daughter in law living across the street and other family locally and at a distance. She has missed being able to have more visits with her great grand children lately. Yuki fell a few years ago and had surgery on her other hip, so she knows what she's getting into, she said.
--- NOTE | 2020-03-11 13:00 | DI.RAD_ITS ---
EXAM: XR HIP RT IN OR CLINICAL HISTORY: Right intertrochanteric hip fracture TECHNIQUE: 2D and realtime digital imaging was performed. CONTRAST MATERIAL: Refer to procedure report. COMPARISON: CR,XR XR HIP RT COMPLETE AP PELVIS from 03/10/2020 FINDINGS: Fluoroscopy was provided for Dr. Cortez during the performance of a reduction and internal fixation of the intertrochanteric fracture of the right femur. Please refer to the procedure report for compl ete details. Fluoro time: 80.5 seconds IMPRESSION: RADIATION DOSE DELIVERED:
[2020-03-11 15:04] LABS: COVID-19 RT-PCR UVMMC Result Negative (Negative)
--- NOTE | 2020-03-11 15:11 | NUR.NOTE ---
Nursing Note: Negative Covid result reported to CC Aurora Landrum and Marina Baer RN
[2020-03-11] MEDS: Tranexamic Acid 1,000 MG/10 ML VIAL 1000 MG (15:28)
[2020-03-11] MEDS: Normal Saline 100 ML (15:28)
--- NOTE | 2020-03-11 16:15 | W.PM.PROGNOT ---
Date of Service Date of service: 03/11/20 Time of Service: 16:15 Subjective Subjective Interval history since last seen: Attempted to see patient multiple times. She is still not in her room - in the OR/PACU. Objective Objective Clinical Data: Abnormal lab results 03/11/20 03/11/20 Range/Units 07:10 07:10 RBC 3.06 L (3.93-5.22) 10^6/uL Hgb 8.9 L (11.2-15.7) g/dL Hct 28.0 L (36.0-46.0) % MCHC 31.8 L (32.0-36.0) % RDW 15.2 H (11.7-14.6) % Absolute Lymphocytes 0.66 L (1.2-3.4) 10^3/uL Chloride 108 H (98-107) mmol/L BUN 19 H (7-18) mg/dL Creatinine 1.06 H (0.55-1.02) mg/dL Folate 8.2 L (8.6-20.0) ng/mL Vital Signs Temperature 37.1 C 03/11/20 12:43 Temperature Source Tympanic 03/11/20 12:43 Pulse 82 03/11/20 12:43 Pulse Rhythm Regular 03/11/20 12:44 Respiratory Rate 16 03/11/20 12:43 Respiratory Effort Non-Labored 03/11/20 12:44 Respiratory Depth Normal 03/11/20 12:44 Respiratory Pattern Normal 03/11/20 12:44 Blood Pressure 126/65 03/11/20 12:43 Blood Pressure Position Sitting 03/10/20 17:51 Pulse Oximetry 92 L 03/11/20 12:43 Oxygen Delivery Method Room Air 03/11/20 12:43 Oxygen Flow Rate 0 03/11/20 12:43 Pain Level 5 03/11/20 12:43 Intake & Output 03/10/20 03/11/20 03/11/20 23:59 11:59 23:59 Intake Total 1600 / 1600 Output Total 325 / 325 250 / 1675 1425 / 1675 Balance -315 / -315 -250 / -75 175 / -75 Weight 84.6 kg Intake: IV 1600 / 1600 Output: Urine 325 / 325 250 / 1475 1225 / 1475 Estimated Blood Loss 200 / 200 Other: Urine Color Straw Yellow Yellow Straw Urine Appearance Clear Clear Clear Comment pre-op drained Laboratory Results WBC 5.21 10^3/uL (4.4-10.8) 03/11/20 07:10 RBC 3.06 10^6/uL (3.93-5.22) L 03/11/20 07:10 Hgb 8.9 g/dL (11.2-15.7) L 03/11/20 07:10 Hct 28.0 % (36.0-46.0) L 03/11/20 07:10 MCV 91.5 fL (80-95) 03/11/20 07:10 MCH 29.1 pg (27.0-33.0) 03/11/20 07:10 MCHC 31.8 % (32.0-36.0) L 03/11/20 07:10 RDW 15.2 % (11.7-14.6) H 03/11/20 07:10 Plt Count 171 10^3/uL (130-400) 03/11/20 07:10 MPV 10.1 fL (8.0-11.0) 03/11/20 07:10 Immature Gran % 0.4 03/11/20 07:10 Neutrophils % 78.2 03/11/20 07:10 Lymphocytes % 12.7 03/11/20 07:10 Monocytes % 5.8 03/11/20 07:10 Eosinophils % 2.1 03/11/20 07:10 Basophils % 0.8 03/11/20 07:10 Nucleated RBC % 0 % 03/11/20 07:10 Absolute Neutrophils 4.08 10^3/uL (1.2-6.7) 03/11/20 07:10 Absolute Lymphocytes 0.66 10^3/uL (1.2-3.4) L 03/11/20 07:10 Absolute Monocytes 0.30 10^3/uL (0.1-0.8) 03/11/20 07:10 Absolute Eosinophils 0.11 10^3/uL (0.0-0.7) 03/11/20 07:10 Absolute Basophils 0.04 10^3/uL (0.0-0.2) 03/11/20 07:10 Sodium 142 mmol/L (136-145) 03/11/20 07:10 Potassium 4.6 mmol/L (3.5-5.1) 03/11/20 07:10 Chloride 108 mmol/L (98-107) H 03/11/20 07:10 Carbon Dioxide 26.4 mmol/L (21.0-32.0) 03/11/20 07:10 Anion Gap 7.6 mmol/L (3-11) 03/11/20 07:10 BUN 19 mg/dL (7-18) H 03/11/20 07:10 Creatinine 1.06 mg/dL (0.55-1.02) H 03/11/20 07:10 Estimated GFR/1.73 m2 49.63 (mL/min/1.73m2) 03/11/20 07:10 Glucose 102 mg/dL (74-106) 03/11/20 07:10 Calcium 8.8 mg/dL (8.5-10.1) 03/11/20 07:10 Iron 77 ug/dL (50-170) 03/11/20 07:10 TIBC 316 ug/dL (250-450) 03/11/20 07:10 Transferrin % Sat 24 % (15-50) 03/11/20 07:10 Ferritin 18 ng/mL (8-252) 03/11/20 07:10 Vitamin B12 217 pg/mL (193-986) 03/11/20 07:10 Folate 8.2 ng/mL (8.6-20.0) L 03/11/20 07:10 COVID-19 PCR Negative (Negative) 03/10/20 19:36 Nasopharyn COVID-19 PCR Not Applicable 03/10/20 19:36 Ref Test Perform Site [facility] lab 03/10/20 19:36
--- NOTE | 2020-03-11 16:44 | ROE_ITS ---
Date of service: 03/11/20 Time of Service: 16:44 Operative Note Operative Note DATE OF PROCEDURE: 03/11/20 PRE-OP DIAGNOSIS: Intertrochanteric fracture right femur PROCEDURE: Open reduction internal fixation of intertrochanteric fracture of the right femur using short TFN SURGEON: Stanley Cortez HEAD TENNIS PROFESSIONAL: Asmita Vann ANESTHESIA: GETA ESTIMATED BLOOD LOSS: 30 PATHOLOGY: none sent COMPLICATIONS: None Patient was transported to: PACU Patient's condition: stable Implants: Short 11 mm TFN, 95 mm helical blade, 36 mm distal locking screw. Indications: This is an 80-year-old white female who fell in her home from a standing height onto her right side yesterday, sustaining a intertrochanteric fracture of the right femur. Fracture was stable type of the lesser trochanter intact and no significant comminution. Open reduction internal fixation with a trochanteric femoral nail was advised optimum treatment to alleviate her pain and get her up ambulating again. Risk complication procedure explained patient in detail preop. Procedure Description: Patient taken the operating room on 03/11/2020 play supine on the operating table. General anesthetic was administered. Patient was then placed in unilateral traction on the right side. The right lateral hip and pelvis were then prepped and draped free in usual sterile fashion. Longitudinal incision was made beginning at the tip of the greater trochanter extending proximally about 3 to 4 inches. Incision was carried down to the skin and subcu to the abductor fascia. The abductor fascia was then longitudinally incised. I was able to reach my finger and palpate the tip of the trochanter. Using the la gavnio drill guide and sleeve at the tip of the greater trochanter and down the femoral canal distal to the lesser troches.. Flexible guidewire was inserted and then short 130 degree 11 mm diameter TFN. The nail was advanced to appropriate depth confirmed with the C-arm image the entire. Using a drill guide lateral cortex of the femur. Guidepin was placed through the drill guide into the center of the femoral head on both AP and lateral views. The pin was advanced within 10 mm of the subchondral bone of the femoral head. I reamed over the guidepin for the helical blade. Measurement showed 95 mm appropriate length. A 95 mm helical blade was then advanced until fully seated. I checked with the C-arm and the blade was in the center center position. I removed traction from the right leg to help impact the fracture. Tightened the proximal locking screw to using a neutral sleeve and a extending the distally I then drilled and placed 36 mm locking bolt through the distal portion of the nail. I instilled the proximal wound with tranexamic acid 2 g in 150 cc of saline. I let it sit for 60 seconds before suctioning. Wound margins were infiltrated with 0.5% Marcaine with epinephrine solution. Skin edges approximated with a running subcuticular suture of 3-0 Monocryl. This is supplemented with Steri- Strips and tissue glue. The more distal stab wound incision was closed with s imple interrupted 4 nylon sutures. Wounds were dressed with Mepilex dressing. Patient's anesthesia was reversed without complications. Estimated blood loss was 30 cc. She was discharged to recovery room in good condition.
[2020-03-11] MEDS: ceFAZolin 1 GM/50 ML BAG IVPB ×2 (17:06→23:14)
[2020-03-11] MEDS: Acetaminophen 325 MG TAB 650 MG PO (21:00)
[2020-03-11] MEDS: Ketorolac 15 MG/ML VIAL IVP (23:13)
[2020-03-12] MEDS: ceFAZolin 1 GM/50 ML BAG IVPB ×2 (05:09→11:55)
[2020-03-12] MEDS: Ketorolac 15 MG/ML VIAL IVP ×4 (05:09→21:46)
[2020-03-12 06:40] LABS: Abs Immature Grans 0.04 10^3/uL (0.0-0.06); Absolute Basophil Count 0.04 10^3/uL (0.0-0.2); Absolute Lymphocyte Count 0.68 10^3/uL (1.2-3.4); Absolute Monocyte Count 0.33 10^3/uL (0.1-0.8); Absolute Neutrophil Count 4.85 10^3/uL (1.2-6.7); Basophils % 0.7; Eosinophils % 3.3; HGB 7.5 g/dL (11.2-15.7); Immature Grans % 0.7; Lymphocytes % 11.1; MCHC 31.3 % (32.0-36.0); MCV 92.7 fL (80-95); MPV 10.3 fL (8.0-11.0); Monocytes % 5.4; Neutrophils % 78.8; Nucleated RBC 0 %; Platelet Count 121 10^3/uL (130-400); RBC 2.59 10^6/uL (3.93-5.22); RDW 15.4 % (11.7-14.6); WBC 6.14 10^3/uL (4.4-10.8)
[2020-03-12 06:55] LABS: Anion Gap 9.4 mmol/L (3-11); BUN 21 mg/dL (7-18); CO2 25.6 mmol/L (21.0-32.0); CREATININE 1.24 mg/dL (0.55-1.02); Calcium 8.4 mg/dL (8.5-10.1); Chloride 106 mmol/L (98-107); Estimated GFR 41.41 (mL/min/1.73m2); Glucose 106 mg/dL (74-106); Magnesium 1.8 mg/dL (1.8-2.4); Potassium 4.5 mmol/L (3.5-5.1); Sodium 141 mmol/L (136-145)
[2020-03-12 07:19] LABS: Diff Comment RBC Morph Reviewed; Hypochromasia 1+; Polychromasia Present
[2020-03-12 07:21] VITALS: BP 114/68; PULSE 95; RESP 16; TEMP 36.7; O2SAT 98
[2020-03-12] MEDS: Metoprolol 25 MG TAB 12.5 MG PO ×2 (07:44→19:55)
[2020-03-12] MEDS: Lactated Ringers 1,000 ML 80 ML IV ×2 (07:44→19:54)
[2020-03-12] MEDS: Acetaminophen 325 MG TAB 650 MG PO ×2 (07:55→16:10)
--- NOTE | 2020-03-12 08:44 | PGE_ITS ---
Date of Service Date of service: 03/12/20 Time of Service: 08:44 Assessment and Plan Assessment and plan (1) Closed fracture of right hip: Status: Acute Assessment and plan: s/p repair POD #1 doing well, no postoperative issues, pain managed, eating and drinking well, working with physical therapy and out of bed, continue routine postoperative care, PT/OT, bowel management, pulmonary toilet, pain management. (2) Hypertension: Status: Chronic Assessment and plan: blood pressure stable, continue to monitor and metoprolol, adjust as needed. Qualifiers: Hypertension type: essential hypertension Qualified Code(s): I10 - Essential (primary) hypertension (3) DVT prophylaxis: Status: Acute Assessment and plan: enoxaparin sc daily, SCD's, increasing ambulation. (4) Discharge planning issues: Status: Acute Assessment and plan: case management following, will likely discharge to home with no services, will continue to assess for swing level care or home health needs. Subjective Subjective Patient reports: feels better, pain is less, tolerating liquids well, tolerating a regular diet and voiding w/o difficulty Interval history since last seen: doing well, out of bed with physical therapy Exam Const General: cooperative, healthy appearing, comfortable and no acute distress Nutritional Appearance: average body habitus Orientation: alert, awake and oriented x3 HENMT Head: normal to inspection, normocephalic and atraumatic Mouth: oral mucosae normal Chest Chest: normal inspection of the chest Resp Effort & Inspection: normal respiratory effort Auscultation: clear to auscultation bilaterally Cardio Rate: regular rate Rhythm: regular rhythm GI Inspection: normal to inspection Palpation: soft Auscultation: normal bowel sounds Skin Lesions: lesion noted (surgical dressing dry and intact) Rashes: no rashes Neuro General: patient alert, patient awake and patient oriented x3 Extrem General: no pedal edema Objective Objective Clinical Data: Abnormal lab results 03/11/20 03/12/20 03/12/20 Range/Units 07:10 06:04 06:04 RBC 2.59 L (3.93-5.22) 10^6/uL Hgb 7.5 L (11.2-15.7) g/dL Hct 24.0 L (36.0-46.0) % MCHC 31.3 L (32.0-36.0) % RDW 15.4 H (11.7-14.6) % Plt Count 121 L (130-400) 10^3/uL Absolute Lymphocytes 0.68 L (1.2-3.4) 10^3/uL BUN 21 H (7-18) mg/dL Creatinine 1.24 H (0.55-1.02) mg/dL Calcium 8.4 L (8.5-10.1) mg/dL Folate 8.2 L (8.6-20.0) ng/mL Vital Signs Temperature 36.7 C 03/12/20 07:21 Temperature Source Tympanic 03/12/20 07:21 Pulse 95 H 03/12/20 07:21 Pulse Rhythm Regular 03/12/20 01:37 Respiratory Rate 16 03/12/20 07:21 Respiratory Effort 03/12/20 01:37 Respiratory Depth Normal 03/12/20 01:37 Respiratory Pattern Normal 03/12/20 01:37 Blood Pressure 114/68 03/12/20 07:21 Blood Pressure Position Sitting 03/10/20 17:51 Pulse Oximetry 98 03/12/20 07:21 Respiratory End-tidal CO2 31 03/11/20 16:42 Oxygen Delivery Method Room Air 03/12/20 07:21 Oxygen Flow Rate 0 03/12/20 07:21 Pain Level 3 03/12/20 07:55 Intake & Output 03/11/20 03/11/20 03/12/20 11:59 23:59 11:59 Intake Total 1885.333 / 5784.433 1987 / 1000 Output Total 250 / 1675 1425 / 1675 650 / 650 Balance -250 / 210.333 460.333 / 210.333 350 / 350 Intake: IV 1805.333 / 5970.480 4469 / 1000 Oral 80 / 80 Output: Urine 250 / 1475 1225 / 1475 650 / 650 Estimated Blood Loss 200 / 200 Other: Urine Color Yellow Yellow Yellow Straw Urine Appearance Clear Clear Clear Comment pre-op drained Emesis Description None Laboratory Results WBC 6.14 10^3/uL (4.4-10.8) 03/12/20 06:04 RBC 2.59 10^6/uL (3.93-5.22) L 03/12/20 06:04 Hgb 7.5 g/dL (11.2-15.7) L 03/12/20 06:04 Hct 24.0 % (36.0-46.0) L 03/12/20 06:04 MCV 92.7 fL (80-95) 03/12/20 06:04 MCH 29.0 pg (27.0-33.0) 03/12/20 06:04 MCHC 31.3 % (32.0-36.0) L 03/12/20 06:04 RDW 15.4 % (11.7-14.6) H 03/12/20 06:04 Plt Count 121 10^3/uL (130-400) L 03/12/20 06:04 MPV 10.3 fL (8.0-11.0) 03/12/20 06:04 Immature Gran % 0.7 03/12/20 06:04 Neutrophils % 78.8 03/12/20 06:04 Lymphocytes % 11.1 03/12/20 06:04 Monocytes % 5.4 03/12/20 06:04 Eosinophils % 3.3 03/12/20 06:04 Basophils % 0.7 03/12/20 06:04 Nucleated RBC % 0 % 03/12/20 06:04 Absolute Neutrophils 4.85 10^3/uL (1.2-6.7) 03/12/20 06:04 Absolute Lymphocytes 0.68 10^3/uL (1.2-3.4) L 03/12/20 06:04 Absolute Monocytes 0.33 10^3/uL (0.1-0.8) 03/12/20 06:04 Absolute Eosinophils 0.20 10^3/uL (0.0-0.7) 03/12/20 06:04 Absolute Basophils 0.04 10^3/uL (0.0-0.2) 03/12/20 06:04 RBC Morphology See below 03/12/20 06:04 Polychromasia Present 03/12/20 06:04 Hypochromasia 1+ 03/12/20 06:04 Sodium 141 mmol/L (136-145) 03/12/20 06:04 Potassium 4.5 mmol/L (3.5-5.1) 03/12/20 06:04 Chloride 106 mmol/L (98-107) 03/12/20 06:04 Carbon Dioxide 25.6 mmol/L (21.0-32.0) 03/12/20 06:04 Anion Gap 9.4 mmol/L (3-11) 03/12/20 06:04 BUN 21 mg/dL (7-18) H 03/12/20 06:04 Creatinine 1.24 mg/dL (0.55-1.02) H 03/12/20 06:04 Estimated GFR/1.73 m2 41.41 (mL/min/1.73m2) 03/12/20 06:04 Glucose 106 mg/dL (74-106) 03/12/20 06:04 Calcium 8.4 mg/dL (8.5-10.1) L 03/12/20 06:04 Magnesium 1.8 mg/dL (1.8-2.4) 03/12/20 06:04 Iron 77 ug/dL (50-170) 03/11/20 07:10 TIBC 316 ug/dL (250-450) 03/11/20 07:10 Transferrin % Sat 24 % (15-50) 03/11/20 07:10 Ferritin 18 ng/mL (8-252) 03/11/20 07:10 Vitamin B12 217 pg/mL (193-986) 03/11/20 07:10 Folate 8.2 ng/mL (8.6-20.0) L 03/11/20 07:10 COVID-19 PCR Negative (Negative) 03/10/20 19:36 Nasopharyn COVID-19 PCR Not Applicable 03/10/20 19:36 Ref Test Perform Site [facility] lab 03/10/20 19:36
[2020-03-12] MEDS: Normal Saline Flush 10 ML SYR IVP ×2 (09:38→16:12)
--- NOTE | 2020-03-12 09:40 | PT.INIE ---
Date of service: 03/12/20 Time of Service: 09:40 PT Notes Visit Reasons: RIGHT HIP FRACTURE Physical Therapy Inpatient Initial Evaluation Date: 03/11/2020 Referring Doctor: Stanley Cortez MD PT Orders: PT CONSULT: Status post Ortho surgery. WBAT to right leg with walker Precautions: Fall. Standard. WBAT on right LE. Patient Profile/Admitting Diagnosis: Yuki is an 80-year-old female with acute impacted intertrochanteric fracture of the right femur from a mechanical fall and is status post open reduction internal exudation using trochanteric fixation nail on postoperative day 1. PMHX: Medical History Breast cancer (Chronic) Right - Lumpectomy 1997, chemo & radiation Bursitis of left hip (Acute) Femoral neck fracture (Acute) Functional bowel disorder (Chronic) constipation and diarrhea Hypertension (Chronic) Impacted cerumen of both ears (Acute) Vertigo (Acute) Surgical History (Updated 03/10/20 @ 21:40 by Lloyd Perez MD) Cholecystectomy (12/30/16) H/O lumpectomy (Acute) History of open reduction and internal fixation (ORIF) procedure (Resolved) Left hip 2019 Social History/Home Situation: he lives alone in a private home with 3 steps to enter. Son and her son's family live close by and are ready to provide support as needed. Yuki is independent with single-point cane at baseline. She still drives. Equipment Owned/DME: Single-point cane Subjective: Yuki is very much apprehensive to be putting weight on the right LE due to pain complaint. She requires extensive encouragement to initiate ambulation in today's session. She reports 2-3/10 pain in the right hip with weightbearing and with movement. She denies headache, chest pain, and dizziness throughout. Objective: General Observation: Surgical dressing over right hip. Bilateral TEDS on. IV in the left UE. Mental Status: Alert and oriented x4 Pain: 2-3/10 in the right hip ROM: Right Upper Extremity: Shoulder Flexion WFL. Shoulder abduction WFL. Elbow flexion WFL. Wrist flexion WFL. Opening and closing of hand WFL. Left Upper Extremity: Shoulder Flexion WFL. Shoulder abduction WFL. Elbow flexion WFL. Wrist flexion WFL. Opening and closing of hand WFL. Right Lower Extremity: Hip flexion limited to 90 degrees allowing sitting at edge of bed. Hip abduction WFL. Knee flexion WFL. Knee extension -30 degrees. Ankle dorsiflexion WFL. Ankle plantarflexion WFL. Left Lower Extremity: Hip flexion WFL. Hip abduction WFL. Knee flexion WFL. Ankle dorsiflexion WFL. Ankle plantarflexion WFL. Strength: Right Upper Extremity: Shoulder flexors 4/5. Shoulder abductors 4/5. Elbow flexors 4/5. Elbow extensors 4/5. Ballroom Dancer strong. Left Upper Extremity: Shoulder flexors 4/5. Shoulder abductors 4/5. Elbow flexors 4/5. Elbow extensors 4/5. Ballroom Dancer strong. Right Lower Extremity: Hip flexors 3-/5. Hip abductors 4-/5. Knee flexors 4-/5. Knee extensors 3-/5. Ankle dorsiflexors 4/5. Ankle plantarflexors 4/5. Left Lower Extremity: Hip flexors 3-/5. Hip abductors 4-/5. Knee flexors 4-/5. Knee extensors 3-/5. Ankle dorsiflexors 4/5. Ankle plantarflexors 4/5. Sensation: Intact as to pain and pressure on bilateral lower extremities. Bed Mobility/Transfers: Supine to sit minimal assist requiring minimal verbal for correct technique Sit to supine minimal assist requiring minimal verbal for correct technique Sit to stand minimal assist requiring minimal verbal for correct technique Stand to sit minimal assist requiring minimal verbal for correct technique Bed to chair minimal assist requiring minimal verbal for correct technique Chair to bed minimal assist requiring minimal verbal for correct technique Gait: 8 steps +10 steps requiring use of front wheeled walker with WBAT on the right LE requiring minimal to moderate assist with step to gait pattern reporting 2?3/10 pain in the right hip with avoidance gait pattern noted due to pain level. Balance: Static Sitting: Normal Dynamic Sitting: Good Static Standing: Fair Dynamic Standing: Poor Special Tests: Mobility Limitations Standardized Measure [facility] AM-PAC 6 clicks Basic Mobility Inpatient Short Form: Raw Score: 12 CMS Score: 69% deficit Informed Consent/Education: Patient instructed in purpose of PT consult and plan of care. Assessment: Yuki demonstrates significant functional mobility decline requiring physical assistance and the use of a front wheeled walker for all mobility ADL performance for safety, difficulty with walking, impairment with balance, unsteadiness of gait, generalized weakness, and increased risk for falls due to postoperative status. Yuki is an 80-year-old female with acute impacted intertrochanteric fracture of the right femur from a mechanical fall and is status post open reduction internal exudation using trochanteric fixation nail on postoperative day 1. Patient presents with clinical signs and symptoms consistent with current/admitting diagnoses that have resulted to mobility limitations, gait instability, generalized weakness, and impairment of motor control as demonstrated by the following impairment level findings: 1. Decreased strength to right hip major muscle groups 2. Impaired standing balance 3. Impaired activity tolerance 4. Limitation of joint range of motion in right hip and knee Impairments are contributing to the following functional limitations: 1. Dependent bed mobility skills 2. Increased dependence with transfers 3. Inability to safely ambulate without assistive device and physical assistance 4. Increase completion time for mobility ADL performance 5. Increased fall risk 6. Inability to negotiate steps alone safely 7. Decreased self-confidence with mobility ADL performance Patient is assessed as a [id number] moderate complexity based on the following: History: 80-year-old female with impairment level findings, functional limitations, and past medical history as indicated above Examination: Demonstrable impairment in strength, balance, and mobility level with underlying impairments and functional limitations as documented above Presentation:Evolving Decision Makin moderate complexity Goals: Goals X1 week 1. Supine-Sit independent 2. Sit-Supine independent 3. Sit-Stand standby assist 4. Stand-Sit standby assist 5. Bed-Chair standby assist 6. Chair-Bed standby assist 7. Standby assist gait on level surface with use of least restrictive device for at least 300 feet without report of pain nor dyspnea 8. Standby assist stair negotiation while holding onto bilateral rails for at least 10 steps without report of pain nor dyspnea 9.. Good static and dynamic standing balance/tolerance Plan of Care/Treatment Plan: 1-2x/day, 7 days/week x 1 week. Plan of care has been reviewed with the SHREDDING FLOOR EQUIPMENT OPERATOR providing the service under Physical Therapy direction. Initiate Physical Therapy intervention for strengthening, bed mobility, transfers, gait, stairs, balance training, use of assistive device. DISCHARGE RECOMMENDATIONS: Patient will benefit from detention facility placement for continued skilled physical therapy services in order to progress mobility level, strength, and balance in preparation for a safe discharge to home. TREATMENT CODE/TIME: 89142 x 25 minutes, 59939 x 19 minutes beginning at 9:40 AM. Thank you for the opportunity to participate in the care of this patient. Rosa M Kulkarni PT, DPT, CLT [facility] [place], [place]
--- NOTE | 2020-03-12 10:55 | CMPROGNOTE_ITS ---
- If Service Date Differs Date of service: 03/12/20 Time of Service: 10:55 Care Management Progress Note S/O: Yuki was sitting up in her chair when JOSSIE met with her, her daughter Nicole was also in the room. Yuki stated that she is feeling good today, and her pain is under control, but she had not yet seen the MD and was unaware of her discharge plan. Per report, she has had no post operative issues, and is eating and drinking well. Awaiting PT evaluation to determine need for services. JOSSIE lambert continue to follow. A: Yuki is an 80 year old female admitted to [facility] on 03/10/20 with a hip fracture. P: Yuki will be discharged home with home health services, vs going to a SNF for rehab. CM will work with Yuki and her family to determine the best options for her. CM will suppport Yuki and her family and assess for discharge planning needs.
[2020-03-12 12:00] VITALS: BP 136/71; PULSE 82; RESP 16; TEMP 37; O2SAT 91
[2020-03-12 15:15] VITALS: BP 151/74; PULSE 108; RESP 18; TEMP 37.5; O2SAT 94
--- NOTE | 2020-03-12 15:56 | PT.INTREAT ---
Date of service: 03/12/20 Time of Service: 15:56 PT Notes Visit Reasons: RIGHT HIP FRACTURE PT Inpatient Treatment Note Date: 03/11/2020 Precautions: Fall. Standard. WBAT on right LE. Subjective: Shannan is agreeable to a second session this afternoon. She continues to report of pain in her right hip at 3/10. She denies headache, chest pain, and dizziness throughout. Objective: General Observation: Surgical dressing over right hip. Bilateral TEDS on. IV in the left UE. Mental Status: Alert and oriented x4 Pain: 2-3/10 in the right hip Bed Mobility/Transfers: Sit to stand contact-guard assist requiring minimal verbal for correct technique Stand to sit contact-guard assist requiring minimal verbal for correct technique Bed to chair contact-guard assist requiring minimal verbal for correct technique Chair to bed contact-guard assist requiring minimal verbal for correct technique Gait: 15 steps using front wheeled walker with WBAT on the right LE requiring minimal assist with report of 3/10 in the right hip using step to gait pattern with moderate verbal cues required for correct sequence. Balance: Static Sitting: Normal Dynamic Sitting: Good Static Standing: Fair Dynamic Standing: Poor Assessment: Yuki performed short distance ambulation with increasing mastery and confidence of safe techniques. She remains to report of pain in the right hip which nurse Capps is made aware about. She will continue to benefit from skilled services to achieve highest mobility level. Plan of Care/Treatment Plan: 1-2x/day, 7 days/week x 1 week. Plan of care has been reviewed with the MANUFACTURING ELECTRICIAN providing the service under Physical Therapy direction. Initiate Physical Therapy intervention for strengthening, bed mobility, transfers, gait, stairs, balance training, use of assistive device. DISCHARGE RECOMMENDATIONS: Patient will benefit from half-way facility placement for continued skilled physical therapy services in order to progress mobility level, strength, and balance in preparation for a safe discharge to home. TREATMENT CODE/TIME: 39872 x 29 minutes beginning at 15:56 PM.
[2020-03-12] MEDS: Enoxaparin 30 MG/0.3 ML SYR SC (16:11)
[2020-03-12] MEDS: HYDROcodone 5/Acetaminophen 325 TAB PO (17:40)
[2020-03-12] MEDS: Polyethylene Glycol 3350 17 GM PACKET PO (18:07)
[2020-03-12] MEDS: Docusate Sodium 100 MG CAP PO (19:55)
[2020-03-13 07:20] VITALS: BP 124/71; PULSE 90; RESP 17; TEMP 36.6; O2SAT 92
[2020-03-13] MEDS: Docusate Sodium 100 MG CAP PO ×2 (09:02→19:35)
[2020-03-13] MEDS: Metoprolol 25 MG TAB 12.5 MG PO ×2 (09:02→19:35)
[2020-03-13] MEDS: Polyethylene Glycol 3350 17 GM PACKET PO ×2 (09:02→19:35)
[2020-03-13] MEDS: HYDROcodone 5/Acetaminophen 325 TAB PO ×3 (09:02→22:32)
--- NOTE | 2020-03-13 09:36 | PGE_ITS ---
Date of Service Date of service: 03/12/20 Time of Service: 04:14 Assessment and Plan Assessment and plan (1) Closed intertrochanteric fracture of right hip: Status: Acute Assessment and plan: Assessment: Stable postop day #1 ORIF of an intertrochanteric fracture of the right femur. Plan: Mobilize per protocol. Recheck hemoglobin only if she has symptoms of anemia. DC home when independent with transfers and taking only p.o. pain meds. Subjective Subjective Patient reports: feels better, pain is less, tolerating a regular diet and afebrile Exam Narrative Exam Narrative: Afebrile vital signs stable. Neurovascular exam right foot completely normal. No unusual swelling right thigh. She is up sitting comfortably. She was able to ambulate at least 15 feet with a walker today. Hemoglobin is 7.5 g. Objective Objective Clinical Data: Vital Signs Temperature 36.6 C 03/13/20 07:20 Temperature Source Tympanic 03/13/20 07:20 Pulse 90 03/13/20 07:20 Pulse Rhythm Regular 03/13/20 01:22 Respiratory Rate 17 03/13/20 07:20 Respiratory Effort 03/13/20 01:22 Respiratory Depth Normal 03/13/20 01:22 Respiratory Pattern Normal 03/13/20 01:22 Blood Pressure 124/71 03/13/20 07:20 Blood Pressure Position Sitting 03/10/20 17:51 Pulse Oximetry 92 L 03/13/20 07:20 Respiratory End-tidal CO2 31 03/11/20 16:42 Oxygen Delivery Method Room Air 03/13/20 07:20 Oxygen Flow Rate 0 03/13/20 07:20 Pain Level 4 03/13/20 09:02 Comment 03/12/20 12:00 Intake & Output 03/12/20 03/12/20 03/13/20 11:59 23:59 11:59 Intake Total 2494.667 / 4363.334 1868.667 / 4363.334 Output Total 650 / 1050 400 / 1050 1450 / 1450 Balance 1844.667 / 3313.334 1468.667 / 3313.334 -1450 / -1450 Intake: IV 1404.667 / 2073.334 668.667 / 2073.334 Oral 1090 / 2290 1200 / 2290 Output: Urine 650 / 1050 400 / 1050 1450 / 1450 Other: Urine Color Yellow Yellow Urine Appearance Clear Clear Comment Pt. was bladder scanned for an average of 353 mL of urine at 1745. Pt. was straight catheterized at 1815 for 400 mL of urine. Charge nurse notified. RN will reassess as necessary. pt got oob and voided 400mls Voiding Methods Bedside Commode Incontinent Laboratory Results WBC 6.14 10^3/uL (4.4-10.8) 03/12/20 06:04 RBC 2.59 10^6/uL (3.93-5.22) L 03/12/20 06:04 Hgb 7.5 g/dL (11.2-15.7) L 03/12/20 06:04 Hct 24.0 % (36.0-46.0) L 03/12/20 06:04 MCV 92.7 fL (80-95) 03/12/20 06:04 MCH 29.0 pg (27.0-33.0) 03/12/20 06:04 MCHC 31.3 % (32.0-36.0) L 03/12/20 06:04 RDW 15.4 % (11.7-14.6) H 03/12/20 06:04 Plt Count 121 10^3/uL (130-400) L 03/12/20 06:04 MPV 10.3 fL (8.0-11.0) 03/12/20 06:04 Immature Gran % 0.7 03/12/20 06:04 Neutrophils % 78.8 03/12/20 06:04 Lymphocytes % 11.1 03/12/20 06:04 Monocytes % 5.4 03/12/20 06:04 Eosinophils % 3.3 03/12/20 06:04 Basophils % 0.7 03/12/20 06:04 Nucleated RBC % 0 % 03/12/20 06:04 Absolute Neutrophils 4.85 10^3/uL (1.2-6.7) 03/12/20 06:04 Absolute Lymphocytes 0.68 10^3/uL (1.2-3.4) L 03/12/20 06:04 Absolute Monocytes 0.33 10^3/uL (0.1-0.8) 03/12/20 06:04 Absolute Eosinophils 0.20 10^3/uL (0.0-0.7) 03/12/20 06:04 Absolute Basophils 0.04 10^3/uL (0.0-0.2) 03/12/20 06:04 RBC Morphology See below 03/12/20 06:04 Polychromasia Present 03/12/20 06:04 Hypochromasia 1+ 03/12/20 06:04 Sodium 141 mmol/L (136-145) 03/12/20 06:04 Potassium 4.5 mmol/L (3.5-5.1) 03/12/20 06:04 Chloride 106 mmol/L (98-107) 03/12/20 06:04 Carbon Dioxide 25.6 mmol/L (21.0-32.0) 03/12/20 06:04 Anion Gap 9.4 mmol/L (3-11) 03/12/20 06:04 BUN 21 mg/dL (7-18) H 03/12/20 06:04 Creatinine 1.24 mg/dL (0.55-1.02) H 03/12/20 06:04 Estimated GFR/1.73 m2 41.41 (mL/min/1.73m2) 03/12/20 06:04 Glucose 106 mg/dL (74-106) 03/12/20 06:04 Calcium 8.4 mg/dL (8.5-10.1) L 03/12/20 06:04 Magnesium 1.8 mg/dL (1.8-2.4) 03/12/20 06:04 Iron 77 ug/dL (50-170) 03/11/20 07:10 TIBC 316 ug/dL (250-450) 03/11/20 07:10 Transferrin % Sat 24 % (15-50) 03/11/20 07:10 Ferritin 18 ng/mL (8-252) 03/11/20 07:10 Vitamin B12 217 pg/mL (193-986) 03/11/20 07:10 Folate 8.2 ng/mL (8.6-20.0) L 03/11/20 07:10 COVID-19 PCR Negative (Negative) 03/10/20 19:36 Nasopharyn COVID-19 PCR Not Applicable 03/10/20 19:36 Ref Test Perform Site [facility] lab 03/10/20 19:36
--- NOTE | 2020-03-13 10:05 | W.PM.PROGNOT ---
Date of Service Date of service: 03/13/20 Time of Service: 10:12 Assessment and Plan Assessment and plan (1) Closed fracture of right hip: Status: Acute Assessment and plan: s/p repair POD #2 doing well, slow to reambulate, pain managed, eating and drinking well, working with physical therapy and out of bed, continue routine postoperative care, PT/OT, bowel management, pulmonary toilet, pain management. (2) Hypertension: Status: Chronic Assessment and plan: blood pressure stable, continue to monitor and metoprolol, adjust as needed. Qualifiers: Hypertension type: essential hypertension Qualified Code(s): I10 - Essential (primary) hypertension (3) DVT prophylaxis: Status: Acute Assessment and plan: enoxaparin sc daily, SCD's, increasing ambulation. (4) Constipation: Status: Acute Assessment and plan: continue bowel regimen. (5) Discharge planning issues: Status: Acute Assessment and plan: case management following, will likely need discharge to [facility] level care prior to returning home. plan discussed with Dr Hillman who is in agreement Subjective Subjective Patient reports: feels better, tolerating liquids well, tolerating a regular diet, voiding w/o difficulty, no bowel movement and afebrile Interval history since last seen: reports slow progress with ambulating. no pain management issues. was having difficulty voiding after le first removed but that has resolved. no bowel movement yet but passing flatus with no abdominal pain or nausea. reports chronic constipation issues. Exam Const General: cooperative, healthy appearing, comfortable and no acute distress Nutritional Appearance: average body habitus Orientation: alert, awake and oriented x3 HENVA Head: normal to inspection, normocephalic and atraumatic Mouth: oral mucosae normal Chest Chest: normal inspection of the chest Resp Effort & Inspection: normal respiratory effort Auscultation: clear to auscultation bilaterally Cardio Rate: regular rate Rhythm: regular rhythm GI Inspection: normal to inspection Palpation: soft Auscultation: normal bowel sounds Skin Lesions: lesion noted (surgical dressing dry and intact) Rashes: no rashes Neuro General: patient alert, patient awake and patient oriented x3 Extrem General: no pedal edema Objective Objective Clinical Data: Vital Signs Temperature 36.6 C 03/13/20 07:20 Temperature Source Tympanic 03/13/20 07:20 Pulse 90 03/13/20 07:20 Pulse Rhythm Regular 03/13/20 01:22 Respiratory Rate 17 03/13/20 07:20 Respiratory Effort 03/13/20 01:22 Respiratory Depth Normal 03/13/20 01:22 Respiratory Pattern Normal 03/13/20 01:22 Blood Pressure 124/71 03/13/20 07:20 Blood Pressure Position Sitting 03/10/20 17:51 Pulse Oximetry 92 L 03/13/20 07:20 Respiratory End-tidal CO2 31 03/11/20 16:42 Oxygen Delivery Method Room Air 03/13/20 07:20 Oxygen Flow Rate 0 03/13/20 07:20 Pain Level 4 03/13/20 09:02 Comment 03/12/20 12:00 Intake & Output 03/12/20 03/12/20 03/13/20 11:59 23:59 11:59 Intake Total 2494.667 / 4363.334 1868.667 / 4363.334 Output Total 650 / 1050 400 / 1050 1450 / 1450 Balance 1844.667 / 3313.334 1468.667 / 3313.334 -1450 / -1450 Intake: IV 1404.667 / 2073.334 668.667 / 2073.334 Oral 1090 / 2290 1200 / 2290 Output: Urine 650 / 1050 400 / 1050 1450 / 1450 Other: Urine Color Yellow Yellow Urine Appearance Clear Clear Comment Pt. was bladder scanned for an average of 353 mL of urine at 1745. Pt. was straight catheterized at 1815 for 400 mL of urine. Charge nurse notified. RN will reassess as necessary. pt got oob and voided 400mls Voiding Methods Bedside Commode Incontinent Laboratory Results WBC 6.14 10^3/uL (4.4-10.8) 03/12/20 06:04 RBC 2.59 10^6/uL (3.93-5.22) L 03/12/20 06:04 Hgb 7.5 g/dL (11.2-15.7) L 03/12/20 06:04 Hct 24.0 % (36.0-46.0) L 03/12/20 06:04 MCV 92.7 fL (80-95) 03/12/20 06:04 MCH 29.0 pg (27.0-33.0) 03/12/20 06:04 MCHC 31.3 % (32.0-36.0) L 03/12/20 06:04 RDW 15.4 % (11.7-14.6) H 03/12/20 06:04 Plt Count 121 10^3/uL (130-400) L 03/12/20 06:04 MPV 10.3 fL (8.0-11.0) 03/12/20 06:04 Immature Gran % 0.7 03/12/20 06:04 Neutrophils % 78.8 03/12/20 06:04 Lymphocytes % 11.1 03/12/20 06:04 Monocytes % 5.4 03/12/20 06:04 Eosinophils % 3.3 03/12/20 06:04 Basophils % 0.7 03/12/20 06:04 Nucleated RBC % 0 % 03/12/20 06:04 Absolute Neutrophils 4.85 10^3/uL (1.2-6.7) 03/12/20 06:04 Absolute Lymphocytes 0.68 10^3/uL (1.2-3.4) L 03/12/20 06:04 Absolute Monocytes 0.33 10^3/uL (0.1-0.8) 03/12/20 06:04 Absolute Eosinophils 0.20 10^3/uL (0.0-0.7) 03/12/20 06:04 Absolute Basophils 0.04 10^3/uL (0.0-0.2) 03/12/20 06:04 RBC Morphology See below 03/12/20 06:04 Polychromasia Present 03/12/20 06:04 Hypochromasia 1+ 03/12/20 06:04 Sodium 141 mmol/L (136-145) 03/12/20 06:04 Potassium 4.5 mmol/L (3.5-5.1) 03/12/20 06:04 Chloride 106 mmol/L (98-107) 03/12/20 06:04 Carbon Dioxide 25.6 mmol/L (21.0-32.0) 03/12/20 06:04 Anion Gap 9.4 mmol/L (3-11) 03/12/20 06:04 BUN 21 mg/dL (7-18) H 03/12/20 06:04 Creatinine 1.24 mg/dL (0.55-1.02) H 03/12/20 06:04 Estimated GFR/1.73 m2 41.41 (mL/min/1.73m2) 03/12/20 06:04 Glucose 106 mg/dL (74-106) 03/12/20 06:04 Calcium 8.4 mg/dL (8.5-10.1) L 03/12/20 06:04 Magnesium 1.8 mg/dL (1.8-2.4) 03/12/20 06:04 Iron 77 ug/dL (50-170) 03/11/20 07:10 TIBC 316 ug/dL (250-450) 03/11/20 07:10 Transferrin % Sat 24 % (15-50) 03/11/20 07:10 Ferritin 18 ng/mL (8-252) 03/11/20 07:10 Vitamin B12 217 pg/mL (193-986) 03/11/20 07:10 Folate 8.2 ng/mL (8.6-20.0) L 03/11/20 07:10 COVID-19 PCR Negative (Negative) 03/10/20 19:36 Nasopharyn COVID-19 PCR Not Applicable 03/10/20 19:36 Ref Test Perform Site [facility] lab 03/10/20 19:36
[2020-03-13] MEDS: Acetaminophen 325 MG TAB 650 MG PO ×3 (11:20→19:36)
--- NOTE | 2020-03-13 11:49 | W.NUTRFU ---
Date of service: 03/13/20 Time of Service: 11:50 Nutritional Follow up NOTE: 80 year old female admitted with right hip fracture, s/p surgical intervention. Following regular diet with adequate intake to meet nutrient and fluid needs. BMI indicates class 1 obesity. Not at risk for nutritional risk at this time. Will continue to follow. Time Spent in Nutritional Counseling and Treatment: 0
[2020-03-13 12:11] LABS: Abs Immature Grans 0.03 10^3/uL (0.0-0.06); Absolute Basophil Count 0.03 10^3/uL (0.0-0.2); Absolute Eosinophil Count 0.14 10^3/uL (0.0-0.7); Absolute Monocyte Count 0.35 10^3/uL (0.1-0.8); Absolute Neutrophil Count 4.97 10^3/uL (1.2-6.7); Basophils % 0.5; Eosinophils % 2.3; HCT 23.5 % (36.0-46.0); HGB 7.3 g/dL (11.2-15.7); Immature Grans % 0.5; Lymphocytes % 8.3; MCH 29.3 pg (27.0-33.0); MCHC 31.1 % (32.0-36.0); MCV 94.4 fL (80-95); MPV 10.3 fL (8.0-11.0); Monocytes % 5.8; Neutrophils % 82.6; Nucleated RBC 0 %; Platelet Count 125 10^3/uL (130-400); RBC 2.49 10^6/uL (3.93-5.22); RDW 15.6 % (11.7-14.6); RDW-SD 53.3 fL; WBC 6.02 10^3/uL (4.4-10.8)
[2020-03-13 12:17] LABS: Anion Gap 7.1 mmol/L (3-11); BUN 20 mg/dL (7-18); CO2 25.9 mmol/L (21.0-32.0); CREATININE 1.24 mg/dL (0.55-1.02); Calcium 8.7 mg/dL (8.5-10.1); Chloride 105 mmol/L (98-107); Estimated GFR 41.41 (mL/min/1.73m2); Glucose 116 mg/dL (74-106); Potassium 4.6 mmol/L (3.5-5.1); Sodium 138 mmol/L (136-145)
[2020-03-13] MEDS: Ferrous Sulfate 325 MG TAB PO (14:47)
--- NOTE | 2020-03-13 15:24 | PDOC.CMPRO ---
- If Service Date Differs Date of service: 03/13/20 Time of Service: 15:24 Care Management Progress Note S/O: Yuki was sitting up in her chair when CM met with her. PT recommended sub acute rehab, which she is agreeable to. Her daughter, Nicole would like her to go to acute rehab, but after discussing this with Yuki, she decided that she was not willing to go to that level of care (3 hrs of PT daily). CM discussed options for rehab with Yuki and her daughter, who were concerned about the ratings of facilities on the [facility]. CM contacted [facility] and [facility], both were not available so a voice message was left. [facility] and [facility] have no bed availability. CM sent referrals to [facility], and [facility] (as a back up option). CM discussed the plan with Yuki and Nicole, that Yuki would likely be discharge ready tomorrow. CM will continue to follow. A: Yuki is an 80 year old female admitted to [facility] on 03/10/20 with a hip fracture. P: PT is recommending SNF for Yuki for short term rehab prior to returning home. CM will work with Yuki and her family to determine the best options for her. CM will suppport Yuki and her family and assess for discharge planning needs.
[2020-03-13 15:25] VITALS: BP 157/73; PULSE 92; RESP 18; TEMP 37.1; O2SAT 93
--- NOTE | 2020-03-13 15:29 | PT.INTREAT ---
Date of service: 03/13/20 Time of Service: 15:29 PT Notes Visit Reasons: RIGHT HIP FRACTURE PT Inpatient Treatment Note Date: 03/13/2020 Precautions: Fall. Standard. WBAT on right LE. Subjective: Yuki is very much apprehensive during the morning session to move her right leg due to significant pain in her right hip indicating 10/10 pain in the right hip during session which nurse Carr was made aware about. In the afternoon, she demonstrates more confidence in limb advancement and weight bearing with premedication by nurse Carr for afternoons PT session. She and her family are considering [facility] facility placement to allow for more time for patient to recover. Objective: General Observation: Surgical dressing over right hip. Bilateral TEDS on. IV in the left UE. Mental Status: Alert and oriented x4 Pain: 10/10 in the right hip in the a.m.; 6/10 in the right hip in the p.m. Bed Mobility/Transfers: Sit to stand contact-guard assist requiring minimal verbal for correct technique Stand to sit contact-guard assist requiring minimal verbal for correct technique Bed to chair contact-guard assist requiring minimal verbal for correct technique Chair to bed contact-guard assist requiring minimal verbal for correct technique Gait: 4 steps +4 steps using front wheeled walker with minimal assist in the morning session with patient anxious about advancing right LE due to pain. 25 feet +10 feet for the afternoon session with increased step height seen compared to this morning. THERA EX: Patient tolerated seated level exercises consisting of ankle DF/PF x20, quadriceps sets x10, gluteal sets x10, seated hip flexion x10, and a long arc quads x10. Balance: Static Sitting: Normal Dynamic Sitting: Good Static Standing: Fair Dynamic Standing: Poor Assessment: Yuki was limited with significant pain in her right hip during the morning session for ambulation activity. With premedication for pain she was able to perform considerably better being more able to advance the right LE with much improved step height and length seen. She easily gets discouraged and requires encouragement for increased motivation. Plan of Care/Treatment Plan: 1-2x/day, 7 days/week x 1 week. Plan of care has been reviewed with the [employer] providing the service under Physical Therapy direction. Initiate Physical Therapy intervention for strengthening, bed mobility, transfers, gait, stairs, balance training, use of assistive device. DISCHARGE RECOMMENDATIONS: Patient will benefit from [facility] facility placement for continued skilled physical therapy services in order to progress mobility level, strength, and balance in preparation for a safe discharge to home. TREATMENT CODE/TIME: Session 1--25148 x 30 minutes, [id number] x 22 minutes beginning at 10:53 AM. Session [id number] x 39 minutes beginning at 1520 9 PM
[2020-03-13] MEDS: Enoxaparin 30 MG/0.3 ML SYR SC (15:33)
--- NOTE | 2020-03-13 15:49 | CHAPLAIN ---
Yuki was doing a crossword puzzle when I visited. She said she is feeling better. 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
[2020-03-13 20:58] VITALS: BP 121/72; PULSE 95; RESP 18; TEMP 36.5; O2SAT 94
[2020-03-14 03:00] VITALS: BP 124/74; PULSE 90; RESP 17; TEMP 36; O2SAT 90
[2020-03-14 07:04] LABS: Abs Immature Grans 0.04 10^3/uL (0.0-0.06); Absolute Basophil Count 0.04 10^3/uL (0.0-0.2); Absolute Eosinophil Count 0.31 10^3/uL (0.0-0.7); Absolute Lymphocyte Count 0.79 10^3/uL (1.2-3.4); Absolute Monocyte Count 0.35 10^3/uL (0.1-0.8); Absolute Neutrophil Count 4.47 10^3/uL (1.2-6.7); Basophils % 0.7; Eosinophils % 5.2; Immature Grans % 0.7; Lymphocytes % 13.2; MCH 29.1 pg (27.0-33.0); MCHC 30.9 % (32.0-36.0); MCV 94.3 fL (80-95); MPV 10.9 fL (8.0-11.0); Monocytes % 5.8; Neutrophils % 74.4; Nucleated RBC 0 %; Platelet Count 144 10^3/uL (130-400); RBC 2.44 10^6/uL (3.93-5.22); RDW 15.8 % (11.7-14.6); RDW-SD 53.8 fL
[2020-03-14 07:05] LABS: HGB 7.1 g/dL (11.2-15.7)
[2020-03-14 07:06] LABS: Anion Gap 4.6 mmol/L (3-11); BUN 21 mg/dL (7-18); CO2 28.4 mmol/L (21.0-32.0); CREATININE 1.17 mg/dL (0.55-1.02); Calcium 8.8 mg/dL (8.5-10.1); Chloride 106 mmol/L (98-107); Estimated GFR 44.28 (mL/min/1.73m2); Glucose 90 mg/dL (74-106); Potassium 4.7 mmol/L (3.5-5.1); Sodium 139 mmol/L (136-145)
[2020-03-14 08:03] VITALS: BP 116/58; PULSE 90; RESP 17; TEMP 36.8; O2SAT 97
[2020-03-14] MEDS: Acetaminophen 325 MG TAB 650 MG PO ×2 (08:30→11:27)
[2020-03-14] MEDS: Ferrous Sulfate 325 MG TAB PO (08:30)
[2020-03-14] MEDS: Metoprolol 12.5 MG TAB PO (08:30)
[2020-03-14] MEDS: Docusate Sodium 100 MG CAP PO (08:30)
[2020-03-14] MEDS: Polyethylene Glycol 3350 17 GM PACKET PO (08:31)
--- NOTE | 2020-03-14 10:06 | W.PM.PROGNOT ---
Date of Service Date of service: 03/14/20 Time of Service: 10:06 Assessment and Plan Assessment and plan (1) Closed fracture of right hip: Start date: 03/14/20 Start time: 10:08 Status: Acute Assessment and plan: s/p repair POD #3 doing well, slow to reambulate, pain managed, eating and drinking well, working with physical therapy and out of bed, continue routine postoperative care, PT/OT, bowel management, pulmonary toilet, pain management. BM today (2) Hypertension: Start date: 03/14/20 Start time: 10:08 Status: Chronic Assessment and plan: blood pressure stable, continue to monitor and metoprolol, adjust as needed. Qualifiers: Hypertension type: essential hypertension Qualified Code(s): I10 - Essential (primary) hypertension (3) DVT prophylaxis: Start date: 03/14/20 Start time: 10:08 Status: Acute Assessment and plan: enoxaparin sc daily, SCD's, increasing ambulation. OOB to chair. (4) Constipation: Start date: 03/14/20 Start time: 10:08 Status: Resolved Assessment and plan: continue bowel regimen. Large BM today (5) Discharge planning issues: Start date: 03/14/20 Status: Acute Assessment and plan: case management following, going to [facility] on discharge. Referrals sent out today. plan discussed with Dr Hillman who is in agreement Subjective Subjective Patient reports: no new complaints Interval history since last seen: POD 3 doing well. Pain controlled. She is having urinary retention, which she states is not new she has had this issue for a long time. She has never seen urology for this. She will need follow up as an outpatient. Will keep le in place for 48 hours. Void trial on Tuesday will start on flomax. BM today still with retention. Denies CP, SOB, N/V/D Exam Const General: cooperative, healthy appearing, comfortable and no acute distress Nutritional Appearance: average body habitus Orientation: alert, awake and oriented x3 HENMT Head: normal to inspection, normocephalic and atraumatic Mouth: oral mucosae normal Chest Chest: normal inspection of the chest Resp Effort & Inspection: normal respiratory effort Auscultation: clear to auscultation bilaterally Cardio Rate: regular rate Rhythm: regular rhythm GI Inspection: normal to inspection Palpation: soft Auscultation: normal bowel sounds Skin Lesions: lesion noted (surgical dressing dry and intact) Rashes: no rashes Neuro General: patient alert, patient awake and patient oriented x3 Extrem General: no pedal edema Objective Objective Clinical Data: Abnormal lab results 03/13/20 03/13/20 03/14/20 Range/Units 12:00 12:00 06:08 RBC 2.49 L (3.93-5.22) 10^6/uL Hgb 7.3 L (11.2-15.7) g/dL Hct 23.5 L (36.0-46.0) % MCHC 31.1 L (32.0-36.0) % RDW 15.6 H (11.7-14.6) % Plt Count 125 L (130-400) 10^3/uL Absolute Lymphocytes 0.50 L (1.2-3.4) 10^3/uL BUN 20 H 21 H (7-18) mg/dL Creatinine 1.24 H 1.17 H (0.55-1.02) mg/dL Glucose 116 H (74-106) mg/dL 03/14/20 Range/Units 06:08 RBC 2.44 L (3.93-5.22) 10^6/uL Hgb 7.1 L (11.2-15.7) g/dL Hct 23.0 L (36.0-46.0) % MCHC 30.9 L (32.0-36.0) % RDW 15.8 H (11.7-14.6) % Plt Count (130-400) 10^3/uL Absolute Lymphocytes 0.79 L (1.2-3.4) 10^3/uL BUN (7-18) mg/dL Creatinine (0.55-1.02) mg/dL Glucose (74-106) mg/dL Vital Signs Temperature 36.8 C 03/14/20 08:03 Temperature Source Tympanic 03/14/20 08:03 Pulse 90 03/14/20 08:03 Pulse Rhythm Regular 03/14/20 03:33 Respiratory Rate 17 03/14/20 08:03 Respiratory Effort 03/14/20 03:33 Respiratory Depth Normal 03/14/20 03:33 Respiratory Pattern Normal 03/14/20 03:33 Blood Pressure 116/58 L 03/14/20 08:03 Blood Pressure Position Sitting 03/10/20 17:51 Pulse Oximetry 97 03/14/20 08:03 Respiratory End-tidal CO2 31 03/11/20 16:42 Oxygen Delivery Method Room Air 03/14/20 08:03 Oxygen Flow Rate 0 03/14/20 08:03 Pain Level 0 03/14/20 08:30 Comment 03/14/20 08:10 Intake & Output 03/13/20 03/13/20 03/14/20 11:59 23:59 11:59 Intake Total 570 / 570 360 / 360 Output Total 1450 / 1750 300 / 1750 1350 / 1350 Balance -1450 / -1180 270 / -1180 -990 / -990 Intake: Oral 570 / 570 360 / 360 Output: Urine 1450 / 1750 300 / 1750 1350 / 1350 Other: Urine Color Yellow Yellow Urine Appearance Clear Clear Clear Urine Odor Normal Comment large amount incontinence pt state she is voiding well and does not need a bladder scan Le catheter inserted at this time per MD order. RN will reassess as necessary. Voiding Methods Bedside Commode Bedside Commode Bedside Commode Incontinent Laboratory Results WBC 6.00 10^3/uL (4.4-10.8) 03/14/20 06:08 RBC 2.44 10^6/uL (3.93-5.22) L 03/14/20 06:08 Hgb 7.1 g/dL (11.2-15.7) L 03/14/20 06:08 Hct 23.0 % (36.0-46.0) L 03/14/20 06:08 MCV 94.3 fL (80-95) 03/14/20 06:08 MCH 29.1 pg (27.0-33.0) 03/14/20 06:08 MCHC 30.9 % (32.0-36.0) L 03/14/20 06:08 RDW 15.8 % (11.7-14.6) H 03/14/20 06:08 Plt Count 144 10^3/uL (130-400) 03/14/20 06:08 MPV 10.9 fL (8.0-11.0) 03/14/20 06:08 Immature Gran % 0.7 03/14/20 06:08 Neutrophils % 74.4 03/14/20 06:08 Lymphocytes % 13.2 03/14/20 06:08 Monocytes % 5.8 03/14/20 06:08 Eosinophils % 5.2 03/14/20 06:08 Basophils % 0.7 03/14/20 06:08 Nucleated RBC % 0 % 03/14/20 06:08 Absolute Neutrophils 4.47 10^3/uL (1.2-6.7) 03/14/20 06:08 Absolute Lymphocytes 0.79 10^3/uL (1.2-3.4) L 03/14/20 06:08 Absolute Monocytes 0.35 10^3/uL (0.1-0.8) 03/14/20 06:08 Absolute Eosinophils 0.31 10^3/uL (0.0-0.7) 03/14/20 06:08 Absolute Basophils 0.04 10^3/uL (0.0-0.2) 03/14/20 06:08 RBC Morphology See below 03/12/20 06:04 Polychromasia Present 03/12/20 06:04 Hypochromasia 1+ 03/12/20 06:04 Sodium 139 mmol/L (136-145) 03/14/20 06:08 Potassium 4.7 mmol/L (3.5-5.1) 03/14/20 06:08 Chloride 106 mmol/L (98-107) 03/14/20 06:08 Carbon Dioxide 28.4 mmol/L (21.0-32.0) 03/14/20 06:08 Anion Gap 4.6 mmol/L (3-11) 03/14/20 06:08 BUN 21 mg/dL (7-18) H 03/14/20 06:08 Creatinine 1.17 mg/dL (0.55-1.02) H 03/14/20 06:08 Estimated GFR/1.73 m2 44.28 (mL/min/1.73m2) 03/14/20 06:08 Glucose 90 mg/dL (74-106) 03/14/20 06:08 Calcium 8.8 mg/dL (8.5-10.1) 03/14/20 06:08 Magnesium 1.8 mg/dL (1.8-2.4) 03/12/20 06:04 Iron 77 ug/dL (50-170) 03/11/20 07:10 TIBC 316 ug/dL (250-450) 03/11/20 07:10 Transferrin % Sat 24 % (15-50) 03/11/20 07:10 Ferritin 18 ng/mL (8-252) 03/11/20 07:10 Vitamin B12 217 pg/mL (193-986) 03/11/20 07:10 Folate 8.2 ng/mL (8.6-20.0) L 03/11/20 07:10 COVID-19 PCR Negative (Negative) 03/10/20 19:36 Nasopharyn COVID-19 PCR Not Applicable 03/10/20 19:36 Ref Test Perform Site [facility] lab 03/10/20 19:36
[2020-03-14] MEDS: Tamsulosin 0.4 MG CAPCR PO (10:22)
--- NOTE | 2020-03-14 10:28 | INDS_ITS ---
Date of service: 03/14/20 Time of Service: 14:34 PT Notes Visit Reasons: RIGHT HIP FRACTURE Inpatient Physical Therapy Discharge Summary Date: 03/14/2020 Service: 03/12/2020 through 03/14/2020 Referring Doctor: Stanley Cortez MD PT Orders: PT CONSULT: Status post Ortho surgery. WBAT to right leg with walker Precautions: Fall. Standard. WBAT on right LE. Patient Profile/Admitting Diagnosis: Yuki is an 80-year-old female with acute impacted intertrochanteric fracture of the right femur from a mechanical fall and is status post open reduction internal exudation using trochanteric fixation nail on postoperative day 3. PMHX: Medical History Breast cancer (Chronic) Right - Lumpectomy 1997, chemo & radiation Bursitis of left hip (Acute) Femoral neck fracture (Acute) Functional bowel disorder (Chronic) constipation and diarrhea Hypertension (Chronic) Impacted cerumen of both ears (Acute) Vertigo (Acute) Surgical History (Updated 03/10/20 @ 21:40 by Lloyd Perez MD) Cholecystectomy (12/30/16) H/O lumpectomy (Acute) History of open reduction and internal fixation (ORIF) procedure (Resolved) Left hip 2019 Social History/Home Situation: he lives alone in a private home with 3 steps to enter. Son and her son's family live close by and are ready to provide support as needed. Yuki is independent with single-point cane at baseline. She still drives. Equipment Owned/DME: Single-point cane Subjective: Yuki continues to complain of pain and a sensation of lack of stability in her right hip during ambulation activity and movement transition from stand to sit. She denies headache, dizziness, and chest pain throughout sessions today. Objective: General Observation: Surgical dressing over right hip. Bilateral TEDS on. Mental Status: Alert and oriented x4 Pain: 5/10 in the right hip ROM: Right Upper Extremity: Shoulder Flexion WFL. Shoulder abduction WFL. Elbow flexion WFL. Wrist flexion WFL. Opening and closing of hand WFL. Left Upper Extremity: Shoulder Flexion WFL. Shoulder abduction WFL. Elbow flexion WFL. Wrist flexion WFL. Opening and closing of hand WFL. Right Lower Extremity: Hip flexion allows about 10 degrees beyond 90 degrees while seated seated at the edge of bed. Hip abduction allows about 10 degrees. Knee flexion WFL. Knee extension -30 degrees. Ankle dorsiflexion WFL. Ankle plantarflexion WFL. Left Lower Extremity: Hip flexion WFL. Hip abduction WFL. Knee flexion WFL. Ankle dorsiflexion WFL. Ankle plantarflexion WFL. Strength: Right Upper Extremity: Shoulder flexors 4/5. Shoulder abductors 4/5. Elbow flexors 4/5. Elbow extensors 4/5. Swimming Pool Maintenance strong. Left Upper Extremity: Shoulder flexors 4/5. Shoulder abductors 4/5. Elbow flexors 4/5. Elbow extensors 4/5. Swimming Pool Maintenance strong. Right Lower Extremity: Hip flexors 3-/5. Hip abductors 3-/5. Knee flexors 4-/5. Knee extensors 3-/5. Ankle dorsiflexors 4/5. Ankle plantarflexors 4/5. Left Lower Extremity: Hip flexors 3-/5. Hip abductors 4-/5. Knee flexors 4-/5. Knee extensors 3-/5. Ankle dorsiflexors 4/5. Ankle plantarflexors 4/5. Sensation: Intact as to pain and pressure on bilateral lower extremities. Bed Mobility/Transfers: Sit to stand standby assist requiring minimal verbal for correct technique Stand to sit standby assist requiring minimal verbal for correct technique Bed to chair standby assist requiring minimal verbal for correct technique Chair to bed standby requiring minimal verbal for correct technique Gait: 15 feet during the first session and 25 feet +25 feet during the second session utilizing front wheeled walker with WBAT on the right LE requiring contact guard assist stand standby assist/wheelchair follow of the second caregiver with complaints of 5/10 pain in the right hip with each weight bearing. Patient continues to be apprehensive with limb advancement and weight acceptance on the right LE due to pain. No verbal cueing required for correct technique and gait pattern. Balance: Static Sitting: Normal Dynamic Sitting: Good Static Standing: Fair Dynamic Standing: Fair THERA EX: Patient tolerated seated level balance exercises consisting of ankle DF and PF x20, quad sets x10, glutes sets x10, and lower quads x10 with minimal discomfort in the R hip limiting right hip flexion to about 10 degrees beyond 90. Assessment: Yuki continues to demonstrate significant functional mobility decline requiring physical assistance and the use of a front wheeled walker for all mobility ADL performance for safety, difficulty with walking, impairment with balance, unsteadiness of gait, generalized weakness, and increased risk for falls due to postoperative status. Yuki is an 80-year-old female with acute impacted intertrochanteric fracture of the right femur from a mechanical fall and is status post open reduction internal exudation using trochanteric fixation nail on postoperative day 3. Patient continues to present with clinical signs and symptoms consistent with current/admitting diagnoses that have resulted to mobility limitations, gait instability, generalized weakness, and impairment of motor control as demonstrated by the following impairment level findings: 1. Decreased strength to right hip major muscle groups 2. Impaired standing balance 3. Impaired activity tolerance 4. Limitation of joint range of motion in right hip and knee Impairments are continuing to contribute to the following functional limitations: 1. Dependent bed mobility skills 2. Increased dependence with transfers 3. Inability to safely ambulate without assistive device and physical assistance 4. Increase completion time for mobility ADL performance 5. Increased fall risk 6. Inability to negotiate steps alone safely 7. Decreased self-confidence with mobility ADL performance Goals: Goals X1 week 1. Supine-Sit independent NOT MET 2. Sit-Supine independent NOT MET 3. Sit-Stand standby assist NOT MET 4. Stand-Sit standby assist NOT MET 5. Bed-Chair standby assist NOT MET 6. Chair-Bed standby assist NOT MET 7. Standby assist gait on level surface with use of least restrictive device for at least 300 feet without report of pain nor dyspnea NOT MET 8. Standby assist stair negotiation while holding onto bilateral rails for at least 10 steps without report of pain nor dyspnea NOT MET 9.. Good static and dynamic standing balance/tolerance NOT MET DISCHARGE RECOMMENDATIONS: Patient will benefit from longterm facility placement for continued skilled physical therapy services in order to progress mobility level, strength, and balance in preparation for a safe discharge to home. TREATMENT CODE/TIME: Session 1??10946 x 20 minutes beginning at 9:10 AM. Three 0 x 16 minutes, 9711 0 x 15 minutes beginning at 10:28 AM. Thank you for the opportunity to participate in the care of this patient. Rosa M Kulkarni PT, DPT, CLT [facility] [place], [place]
--- NOTE | 2020-03-14 13:15 | W.PM.DS.N ---
Date of service: 03/14/20 Time of Service: 13:15 DS: Diagnosis Discharge Diagnosis (1) Closed fracture of right hip: Start date: 03/14/20 Start time: 13:15 Status: Acute Asessment and Plan: POD 3, Intertrochanteric fracture right femur. BM this am. pain managed, eating and drinking well, working with physical therapy and out of bed, continue routine postoperative care, PT/OT, bowel management, pulmonary toilet, pain management. BM today (2) Urinary retention: Start date: 03/14/20 Start time: 13:17 Status: Acute Asessment and Plan: Urinary retention, per patient she has had this for years, she has never seen urology as outpatient. Recommend follow up as outpatient. Started on edda max. Keep fology catheter in place until Tuesday and trial voiding at that time. (3) Hypertension: Start date: 03/14/20 Start time: 13:19 Status: Chronic Asessment and Plan: Continue regimen. (4) Constipation: Start date: 03/14/20 Start time: 13:19 Status: Resolved Asessment and Plan: Large BM this am. above case discussed with Dr. Hillman who is in agreement. Discharge Plan Disposition Patient Disposition: [facility] ([facility] Condition: Stable Discharge Details Chief Complaint: Orthopedic Clinical Impression: Closed fracture of right hip Reason For Visit: RIGHT HIP FRACTURE Admit Date/Time: 03/10/20 18:39 Admit Provider: Lloyd Perez Attending Provider: Lloyd Perez Primary Care Provider: Darling Alanis ED Provider: Giovanni Barajas Hospital Course Hospital Course: 80 y.o female with PMH Breast CA, HTN, Vertigo presented to ED after mechanical fall. In the ED she was found to have a right femur fracture. Dr. Cortez consulted. ORIF intertrochanteric fracture of the right femur performed on 03/11/2020. She is POD 3. Pain controlled. She did have urinary retention overnight with PVR of greater than 400, leading to le catheter placement. Per patient she has had this problem for a long time and has never been seen by urology. Recommend leaving le in until Tuesday, with voiding trial. Follow up with urology as an outpatient and started on flomax. She denies CP, SOB, N/V/D. She is being discharged to [facility] for further management and working with PT. Home Meds and New Rx's Prescriptions: New acetaminophen [Tylenol] 325 mg Tablet 650 mg PO QID Qty: 90 RF: 0 polyethylene glycol 3350 17 gram Powder In Packet 17 g PO BID Qty: 20 RF: 0 hydrocodone-acetaminophen 5-325 mg Tablet 1 tab PO Q6H PRN PRNQty: 20 RF: 0 tamsulosin 0.4 mg Capsule 0.4 mg PO DAILY Qty: 30 RF: 0 ferrous sulfate 325 mg (65 mg iron) Tablet 325 mg PO DAILY Qty: 30 RF: 0 docusate sodium [Colace] 100 mg Capsule 100 mg PO BID Qty: 60 RF: 0 Continued ibuprofen 200 mg tablet 400 mg PO PRN RF: 0 metoprolol tartrate 25 mg tablet 12.5 mg PO BID Qty: 90 RF: 2 Discharge Instructions Instructions: Hip Fracture (GEN), ORIF of Hip Fracture (DC) Additional Instructions: Transfer to [facility] Referrals: Cj Ramos MD [ [facility] STAFF PHYSICIAN] - (Referral for urinary retention) Activity:: Activity as Tolerated Activity:: Activity as Tolerated Equipment/Supplies:: No Equipment Needed Diet:: Low Sodium DS: Summary Status at Discharge Functional status at discharge: uses cane/walker Overall status at discharge: patient is progressing back to baseline Mental Status: mental status grossly normal Speech and Movement: speech and movement normal Mood: congruent mood Affect: normal affect Exam Const General: cooperative, healthy appearing, comfortable and no acute distress Nutritional Appearance: average body habitus Orientation: alert, awake and oriented x3 HENMT Head: normal to inspection, normocephalic and atraumatic Mouth: oral mucosae normal Chest Chest: normal inspection of the chest Resp Effort & Inspection: normal respiratory effort Auscultation: clear to auscultation bilaterally Cardio Rate: regular rate Rhythm: regular rhythm GI Inspection: normal to inspection Palpation: soft Auscultation: normal bowel sounds Skin Lesions: lesion noted (surgical dressing dry and intact) Rashes: no rashes Neuro General: patient alert, patient awake and patient oriented x3 Extrem General: no pedal edema Psych Mental Status: mental status grossly normal Speech and Movement: speech and movement normal Mood: congruent mood Affect: normal affect DS: Data Vitals/I&O Vitals and I&O: Vital Signs Temperature 36.8 C 03/14/20 08:03 Temperature Source Tympanic 03/14/20 08:03 Pulse 90 03/14/20 08:03 Pulse Rhythm Regular 03/14/20 03:33 Respiratory Rate 17 03/14/20 08:03 Respiratory Effort 03/14/20 03:33 Respiratory Depth Normal 03/14/20 03:33 Respiratory Pattern Normal 03/14/20 03:33 Blood Pressure 116/58 L 03/14/20 08:03 Blood Pressure Position Sitting 03/10/20 17:51 Pulse Oximetry 97 03/14/20 08:03 Respiratory End-tidal CO2 03/11/20 16:42 Oxygen Delivery Method Room Air 03/14/20 08:03 Oxygen Flow Rate 0 03/14/20 08:03 Pain Level 0 03/14/20 12:27 Comment 03/14/20 11:25 Intake & Output 03/13/20 03/14/20 03/14/20 23:59 11:59 23:59 Intake Total 570 / 570 360 / 360 Output Total 300 / 1750 1350 / 1600 250 / 1600 Balance 270 / -1180 -990 / -1240 -250 / -1240 Intake: Oral 570 / 570 360 / 360 Output: Urine 300 / 1750 1350 / 1600 250 / 1600 Other: Urine Color Yellow Yellow Urine Appearance Clear Clear Clear Urine Odor Normal Comment pt state she is voiding well and does not need a bladder scan Le catheter inserted at this time per MD order. RN will reassess as necessary. Voiding Methods Bedside Commode Bedside Commode Data Completed and Pending Completed studies during hospitalization [Text1]: EXAM: XR HIP RT AP LAT ONLY CLINICAL HISTORY: check reduction of I-T fx R hip in RR. TECHNIQUE: 2D digital imaging was performed. COMPARISON: CR,XR XR HIP RT COMPLETE AP PELVIS from 03/10/2020 FINDINGS: BONES: The patient is now status post reduction and internal fixation of the intertrochanteric right femoral fracture. Intramedullary jennifer and screw are seen transfixing the fracture. Alignment appears anatomic. No bony destructive lesion is seen. There is an old left hip prosthesis. JOINTS: No dislocation present. SOFT TISSUE: Postsurgical changes are seen in the soft tissues. IMPRESSION: Status post ORIF of the right femoral fracture. Labs on day of discharge: Labs from last 24 hours 03/14/20 03/14/20 06:08 06:08 WBC 6.00 RBC 2.44 L Hgb 7.1 L Hct 23.0 L MCV 94.3 MCH 29.1 MCHC 30.9 L RDW 15.8 H Plt Count 144 MPV 10.9 Immature Gran % 0.7 Neutrophils % 74.4 Lymphocytes % 13.2 Monocytes % 5.8 Eosinophils % 5.2 Basophils % 0.7 Nucleated RBC % 0 Absolute Neutrophils 4.47 Absolute Lymphocytes 0.79 L Absolute Monocytes 0.35 Absolute Eosinophils 0.31 Absolute Basophils 0.04 Sodium 139 Potassium 4.7 Chloride 106 Carbon Dioxide 28.4 Anion Gap 4.6 BUN 21 H Creatinine 1.17 H Estimated GFR/1.73 m2 44.28 Glucose 90 Calcium 8.8 PFSH Medical History Breast cancer (Chronic) Right - Lumpectomy 1997, chemo & radiation Bursitis of left hip (Acute) Femoral neck fracture (Acute) Functional bowel disorder (Chronic) constipation and diarrhea Hypertension (Chronic) Impacted cerumen of both ears (Acute) Vertigo (Acute) Surgical History Cholecystectomy (12/30/16) H/O lumpectomy (Acute) History of open reduction and internal fixation (ORIF) procedure (Resolved) Left hip 2019 Family History Mother , age 93 No problems noted. Father , age 82 No problems noted. Brother , age 82 No problems noted. Maternal Grandfather , age 95 No problems noted. Maternal Grandmother , age 65 No problems noted. Social History Smoking/Tobacco Use Status: Former Tobacco Use Quit Date: 07/11/98 Second Hand Exposure: Yes Alcohol Intake: current Alcohol Intake frequency: holidays/special occasions only Drug use: Never Substance use type: does not use Counseling given: No Counseling provided: none Caregiver/Support person: No Household members: none Housing: house Communication Needs: None Do you need help understanding health information?: Rarely Pets and animals: No Sexually active: No Current gender identity: decline to answer What is your relationship status?: How often do you talk on the phone with friends or family?: three or more times per week How often do you get together with friends or relatives?: three or more times per week How often do you attend zoroastrianism or islam services?: 1-3 times per year Do you belong to any clubs or organized social groups?: decline to answer Panel score (0-1 are the most socially isolated patients): 1 What type of physical activity do you participate in: decline to answer Duration: decline to answer Frequency: decline to answer Jennie/Anabaptist: chr Special jennie needs: No Seatbelt use: always Drive intox or ride w/intox 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
--- NOTE | 2020-03-14 14:01 | PDOC.CMDIS ---
- If Service Date Differs Date of service: 03/14/20 Time of Service: 14:01 LACE Index Scoring Tool - Questions: Length of Stay (in days): 4 - 6 Acuity (Admit via E.D.?): Yes E.D. Visits: 1 - Answers: Total Score: 8 Risk of Readmission: Low Risk Care Management Discharge Reason for Hospitalization: hip fracture Discharge Plan: Yuki is being [facility]hab stay. Her indwelling cath will remain in place and she will have a voiding trial at the facility. Yuki will be transported via wheel chair van through health [facility] rehab. CM completed forms, faxed the PASSR. Family present in the room at time of discharge discussion and decisions. Daughter Blanca agrees to the plan. Patient/Family Education Needs: Discharge education, limitations and follow up plan of care including ask me three and self management. Reviewed of rehab options, VPAC form provided with SNF's throughout [place] and cite to review ratings and addtional options for SNF. Services Needed at Discharge: Half-Way Facility, Transportation
== END 2020-03-14 15:29 | disposition intermediate care facility (04) | DRG 482 ==
LOC: ER 19:43 → MS 19:46
PROVIDERS: Internal Medicine; Nurse Practitioner Acute Care; Orthopaedic Surgery; Admitting Provider Family Medicine; Emergency Provider Student in an Organized Health Care Education/Training Program; Visit Provider Family Medicine
PROC: 0QS606Z Reposition Right Upper Femur with Intramedullary Internal Fixation Device, Open Approach (ICD-10-PCS; CPT 27245; principal; 2020-03-11 13:00)
DX: S72.141A Displaced intertrochanteric fracture of right femur, initial encounter for closed fracture (principal); W19.XXXA Unspecified fall, initial encounter; R33.9 Retention of urine, unspecified; I10 Essential (primary) hypertension; K59.00 Constipation, unspecified; Y92.010 Kitchen of single-family (private) house as the place of occurrence of the external cause
CPT/HCPCS: 27245; 36415; 51702; 80048; 93005; 97110; 97162; 97530; 99222; 99232; 99233; 99239; 99285; NC; U0003; 73501; 73502; 82607; 82728; 82746; 83540; 83550; 83735; 85025; 93010; J0690; J1650; J1885; J2405; J3010; J3490

== ENCOUNTER 2020-03-26 14:20 | Outpatient (REF) | payer MEDICARE, SELFPAY ==
[2020-03-27 23:28] LABS: COVID-19 RT-PCR Result NEGATIVE (Negative)
== END 2020-03-26 14:40 ==
LOC: LBN 14:20
PROVIDERS: Visit Provider Nurse Practitioner Adult Health
DX: Z11.59 Encounter for screening for other viral diseases (principal)
CPT/HCPCS: U0003

== ENCOUNTER 2020-05-22 09:40 | Outpatient (CLI) | payer MEDICARE, SELFPAY ==
--- NOTE | 2020-05-22 08:30 | DI.RAD_ITS ---
EXAM: XR HIP RT AP LAT ONLY CLINICAL HISTORY: follow up. TECHNIQUE: 2D digital imaging was performed. COMPARISON: CR XR HIP RT AP LAT ONLY from 03/11/2020 FINDINGS: BONES: There are stable post operative changes present. No new fracture or dislocation. JOINTS: The joint spaces are well maintained. No joint effusion is present. SOFT TISSUE: Normal. IMPRESSION: Stable postoperative changes. DATA REPOSITORY: RADIATION DOSE DELIVERED:
== END 2020-05-22 10:00 ==
PROVIDERS: Visit Provider Physician Assistant Surgical
DX: S72.141A Displaced intertrochanteric fracture of right femur, initial encounter for closed fracture (principal)
CPT/HCPCS: 73502

== ENCOUNTER 2020-06-18 10:33 | Outpatient (CLI) | payer MEDICARE, SELFPAY ==
--- NOTE | 2020-06-18 09:45 | DI.RAD_ITS ---
EXAM: XR HIP RT AP LAT ONLY CLINICAL HISTORY: ORIF R hip. TECHNIQUE: 2D digital imaging was performed. COMPARISON: Prior x-rays 05/22/2020 FINDINGS: Again noted is lag screw across a healed intertrochanteric fracture. Bones and hardware appear uncha nged. No loosening. No radiographic evidence of osteomyelitis. IMPRESSION: Satisfactory appearance. DATA REPOSITORY: RADIATION DOSE DELIVERED:
== END 2020-06-18 10:53 ==
PROVIDERS: Visit Provider Orthopaedic Surgery
DX: S72.141D Displaced intertrochanteric fracture of right femur, subsequent encounter for closed fracture with routine healing (principal); X58.XXXD Exposure to other specified factors, subsequent encounter
CPT/HCPCS: 99213; 73502

== ENCOUNTER 2020-10-01 04:24 | Outpatient (CLI) | payer MEDICARE, SELFPAY ==
[2020-10-01 07:54] LABS: HCT 37.6 % (36.0-46.0); HGB 12.3 g/dL (11.2-15.7); MCH 32.5 pg (27.0-33.0); MCHC 32.7 % (32.0-36.0); MCV 99.2 fL (80-95); MPV 9.9 fL (8.0-11.0); Platelet Count 184 10^3/uL (130-400); RBC 3.79 10^6/uL (3.93-5.22); RDW 13.1 % (11.7-14.6); RDW-SD 47.9 fL; WBC 4.01 10^3/uL (4.4-10.8)
[2020-10-01 09:08] LABS: ALT 18 U/L (14-59); AST 18 U/L (15-37); Albumin 3.7 g/dL (3.4-5.0); Alkaline Phosphatase 74 U/L (46-116); BUN 20 mg/dL (7-18); Bilirubin, Total 0.4 mg/dL (0.2-1.0); CREATININE 1.1 mg/dL (0.55-1.02); Calcium 9.1 mg/dL (8.5-10.1); Chloride 110 mmol/L (98-107); Estimated GFR 47.55 (mL/min/1.73m2); Ferritin 44 ng/mL (8-252); Glucose 87 mg/dL (74-106); Potassium 4.5 mmol/L (3.5-5.1); Sodium 146 mmol/L (136-145)
[2020-10-01 09:32] LABS: Iron 89 ug/dL (50-170)
== END 2020-10-01 04:25 | disposition home or self-care (01) ==
LOC: LBO 04:24
DX: D50.9 Iron deficiency anemia, unspecified (principal)
CPT/HCPCS: 36415; 80053; 85027; 82728; 83540

== ENCOUNTER 2020-10-10 03:06 | Outpatient (CLI) | payer MEDICARE, SELFPAY ==
--- NOTE | 2020-10-10 07:15 | DI.MAMMO_ITS ---
EXAM: MG MAMMO DIAGNOSTIC BI CLINICAL HISTORY: DIAGNOSTIC,PERSONAL H/O BREAST CA,CONGENITAL MALFORMATION OF TECHNIQUE: Mammograms were interpreted according to the usual protocol including computer analysis w [employer] CAD system, tomosynthesis and C-view imaging. COMPARISON: FINDINGS: Today's bilateral mammogram and right breast ultrasound are interpreted in conjunction. Patient has had a prior right lumpectomy. Breasts are of heterogeneously dense texture. No dominant mass or clumped microcalcification is identified in either breast. Comparison with previ ous mammograms including December 2019 shows no gross interval change in appearance. Complete right alison st ultrasound shows no evidence of a mass or cyst by ultrasound a graphic criteria. IMPRESSION: No specific evidence of malignancy at this time. Routine screening examinations are suggested at yea rly intervals due to the history of breast carcinoma. BI-RADS Category 1 - Negative Breast Density - Category C - Heterogeneously dense
== END 2020-10-10 03:26 ==
DX: R92.8 Other abnormal and inconclusive findings on diagnostic imaging of breast (principal); Z85.3 Personal history of malignant neoplasm of breast; Q83.8 Other congenital malformations of breast
CPT/HCPCS: 76642; 77062; 77066; G0279

== ENCOUNTER 2021-12-16 03:48 | Outpatient (CLI) | payer MEDICARE, SELFPAY ==
[2021-12-16 14:23] LABS: ALT 17 U/L (14-59); AST 22 U/L (15-37); Albumin 3.9 g/dL (3.4-5.0); Alkaline Phosphatase 101 U/L (46-116); BUN 22 mg/dL (7-18); Bilirubin, Total 0.4 mg/dL (0.2-1.0); CREATININE 1.1 mg/dL (0.55-1.02); Calcium 8.9 mg/dL (8.5-10.1); Chloride 106 mmol/L (98-107); Estimated GFR 47.43 (mL/min/1.73m2); Glucose 102 mg/dL (74-106); Sodium 143 mmol/L (136-145); Total Protein 7.3 g/dL (6.4-8.2)
== END 2021-12-16 03:49 | disposition home or self-care (01) ==
LOC: LOS 03:48
DX: I10 Essential (primary) hypertension (principal); R94.5 Abnormal results of liver function studies
CPT/HCPCS: 36415; 80053

== ENCOUNTER → 2022-02-11 02:15 | Outpatient (CLI) | payer MEDICARE, SELFPAY ==
--- NOTE | 2022-02-11 07:30 | DI.MAMMO_ITS ---
Exam(s) MG MAMMO SCREENING 60 MIN DUR EXAM: MG MAMMO SCREENING 60 MIN DUR CLINICAL HISTORY: breast cancer screening,PERSONAL H/O BREAST CA,Z85.3 TECHNIQUE: Mammograms were interpreted according to the usual protocol including computer analysis w [employer] CAD system, tomosynthesis and C-view imaging. COMPARISON: 2012 through 2020 FINDINGS: The breasts are composed of heterogeneously dense fibroglandular densities, Breast Density category C . Patient is status post right lumpectomy. Coarse, benign calcifications are again noted in both breas ts, right greater than left. No suspicious masses or suspicious microcalcifications are seen. No skin thickening or abnormal axillary lymph nodes are seen. There has been no significant change from prior exams. IMPRESSION: BI-RADS category 2-Benign Findings Yearly screening mammography is recommended. Breast Density Category C, heterogeneously Dense. The mammogram demonstrates the patient's breast tissue is dense. Dense breast tissue is very common a nd is not abnormal but dense breast tissue can make it harder to find cancer on a mammogram. Also, de nse breast tissue may increase breast cancer risk. This information about the result of the mammogram report was provided to the patient to raise their awareness. Use this report when you speak with the patient about their risks for breast cancer, which includes their family history. At that time, you may recommend additional screening tests (Ultrasound or MRI) as they might be useful based on their r isk. A negative radiographic report should not delay biopsy if a dominant or clinically suspicious mass is present. Up to ten percent of cancers are not identified on mammography. A negative report may reinforce clinical impression. Adenosis and dense breasts may obscure an underlying neoplasm. False positive reports average 6 to 10%.
== END ==
DX: Z12.31 Encounter for screening mammogram for malignant neoplasm of breast (principal); Z85.3 Personal history of malignant neoplasm of breast; R92.1 Mammographic calcification found on diagnostic imaging of breast; Z98.890 Other specified postprocedural states
CPT/HCPCS: 77063; 77067

== ENCOUNTER 2023-03-22 02:43 | Outpatient (CLI) | payer MEDICARE, SELFPAY ==
[2023-03-22 07:56] LABS: HCT 40.5 % (36.0-46.0); HGB 13.2 g/dL (11.2-15.7); MCH 31.7 pg (27.0-33.0); MCHC 32.6 % (32.0-36.0); MCV 97 fL (80-95); MPV 10.4 fL (8.0-11.0); Platelet Count 171 10^3/uL (130-400); RBC 4.16 10^6/uL (3.93-5.22); RDW 13.4 % (11.7-14.6); RDW-SD 48.2 fL; WBC 4.67 10^3/uL (4.4-10.8)
[2023-03-22 08:16] LABS: ALT 21 U/L (14-59); AST 21 U/L (15-37); Albumin 3.9 g/dL (3.4-5.0); Alkaline Phosphatase 73 U/L (46-116); Anion Gap 10.5 mmol/L (3-11); BUN 19 mg/dL (7-18); Bilirubin, Total 0.5 mg/dL (0.2-1.0); CO2 26.5 mmol/L (21.0-32.0); CREATININE 1.1 mg/dL (0.55-1.02); Calcium 9.5 mg/dL (8.5-10.1); Chloride 106 mmol/L (98-107); Estimated GFR 49.24 (mL/min/1.73m2); Glucose 118 mg/dL (74-106); Potassium 4.4 mmol/L (3.5-5.1); Sodium 143 mmol/L (136-145); Total Protein 7.4 g/dL (6.4-8.2)
== END 2023-03-22 02:44 | disposition home or self-care (01) ==
LOC: LBO 02:43
PROVIDERS: PCP Nurse Practitioner Family; Visit Provider Nurse Practitioner Family
DX: I10 Essential (primary) hypertension (principal); N18.30 Chronic kidney disease, stage 3 unspecified; C50.411 Malignant neoplasm of upper-outer quadrant of right female breast
CPT/HCPCS: 36415; 80053; 85027

== ENCOUNTER 2023-09-14 21:45 | Emergency (ER) | payer MEDICARE, SELFPAY ==
[2023-09-14] VITALS (22 sets, daily range): BP systolic 145–185; BP diastolic 67–151; PULSE 74–104; RESP 16–18; TEMP 36.7; O2SAT 88–98
--- NOTE | 2023-09-14 21:30 | RT.EKG_ITS ---
APPROVED REPORT Exam: Resting ECG Reason for Exam: sob Patient Location: E HR:92 bpm ECG Measurements Heart Rate 92 AXIS RI 245 P 124 QRSd 124 QRS -59 QT 407 T 93 QTc 503 Conclusion sinus 92 long RI 245 normal axis LBBB no stemi no significant change from prior
--- NOTE | 2023-09-14 22:02 | W.ED.GENAD ---
Discharge Plan Disposition Patient Disposition: Home Discharge Details Clinical Impression: Dizziness, Vertigo, Vomiting Primary Care Provider: Anil Snell ED Provider: Clinton Gerber Home Meds and New Rx's Prescriptions: New meclizine 25 mg tablet 25 mg PO BID PRN (Reason: dizziness) Qty: 30 0RF ondansetron 4 mg tablet,disintegrating 4 mg PO Q6H PRN (Reason: nausea and vomiting) Qty: 30 0RF No Action polyethylene glycol 3350 17 gram powder in packet 17 g PO BID PRN (Reason: constipation) Qty: 20 0RF ibuprofen 200 mg tablet 200 mg PO BID docusate sodium 100 mg capsule 100 mg PO BID PRN metoprolol tartrate 25 mg tablet 12.5 mg PO BID Qty: 90 3RF Discharge Instructions Instructions: Vertigo (ED) Additional Instructions: take medicines for nausea and dizziness as needed please follow up with your PCP for re-evaluation lyme testing has been sent, you will be contacted if additional treatment is indicated HPI General Date/Time Provider Initiated Documentation: 09/14/23 21:57. Limitations to Documentation: no limitations. Information obtained by: patient and EMS. HPI Narrative: 83-year-old female with past medical history of CKD, hypertension, breast cancer presents for evaluation of acute onset dizziness. Patient was sitting eating dinner when she started to feel dizzy. She said that she started dry heaving. This has happened to her many times previously. She says that she has no history of vertigo and then the symptoms come and go. Not associated with double vision, not associated with headache, chest pain or shortness of breath. She was given Zofran by EMS. She reports that she does feel slightly better at this time. She states that she feels worse when she tries to sit up and is unable to get up and walk around. She states that she feels better when she lies back and closes her eyes Related Data Home Medications Medication Instructions Recorded Confirmed polyethylene glycol 3350 17 gram 17 g PO BID PRN constipation #20 ea 05/13/20 09/14/23 oral powder packet docusate sodium 100 mg capsule 100 mg PO BID PRN 12/22/21 09/14/23 ibuprofen 200 mg tablet 200 mg PO BID 12/22/21 09/14/23 metoprolol tartrate 25 mg tablet 12.5 mg (1/2 x 25 mg) PO BID #90 08/12/23 09/14/23 tabs meclizine 25 mg tablet 25 mg PO BID PRN dizziness #30 tabs 09/15/23 ondansetron 4 mg disintegrating 4 mg PO Q6H PRN nausea and 09/15/23 tablet vomiting #30 tabs Previous Rx's Medication Instructions Recorded polyethylene glycol 3350 17 gram 17 g PO BID PRN constipation #20 ea 05/13/20 oral powder packet metoprolol tartrate 25 mg tablet 12.5 mg (1/2 x 25 mg) PO BID #90 08/12/23 tabs meclizine 25 mg tablet 25 mg PO BID PRN dizziness #30 tabs 09/15/23 ondansetron 4 mg disintegrating 4 mg PO Q6H PRN nausea and 09/15/23 tablet vomiting #30 tabs Allergies Allergy/AdvReac Type Severity Reaction Status Date / Time chocolate flavor AdvReac Mild Constipatio Verified 09/14/23 21:55 n General Stated Complaint: Dizzy/Sync NOHEMY: 3 Exam Narrative Exam Narrative: Review of Systems: All systems reviewed & are unremarkable except as noted in HPI and below Well-developed, no acute distress NCAT PERRL, normal conjunctiva Skin lesion over the left eyelid No nystagmus RRR, no murmur Unlabored respiratory effort, clear bilaterally Nondistended abdomen, nontender Extremities w/o deformity, no cyanosis, no edema No rashes or lesions. no focal neurologic deficits, CN 2-12 intact, no past-pointing, good strength throughout Appropriate mood and affect Course Vital Signs Vital signs: Vital Signs Temperature 36.7 C 09/14/23 21:48 Pulse 74 09/14/23 21:48 Respiratory Rate 18 09/14/23 21:48 Blood Pressure 162/86 H 09/14/23 21:48 Pulse Oximetry 95 09/14/23 21:48 Temperature 36.7 C 09/14/23 21:48 Temperature Source Oral 09/14/23 21:49 Pulse 92 H 09/14/23 21:49 Respiratory Rate 16 09/14/23 21:58 Respiratory Effort Normal 09/14/23 21:58 Respiratory Depth Normal 09/14/23 21:58 Respiratory Pattern Normal 09/14/23 21:58 Blood Pressure 169/82 H 09/14/23 21:49 Blood Pressure Position Supine 09/14/23 21:49 Pulse Oximetry 98 09/14/23 21:49 Oxygen Delivery Method Room Air 09/14/23 21:49 Oxygen Flow Rate 0 09/14/23 21:49 Pain Level 0 09/14/23 21:49 Medical Decision Making Emergent evaluation of acute onset dizziness. Initial differential includes vertigo,CVA less likely given lack of central symptoms, ACS. EKG reviewed, no acute abnormalities. Vitals stable and symptoms are improving. will give a dose of meclizine, check labs reassess. Lab work reviewed. No leukocytosis. Creatinine at baseline CKD. No electrolyte derangement. Urinalysis without signs of infection. Patient was feeling better until she was helped out of bed to urinate at bedside commode. At that time she had 1 episode of vomiting. Given her persistent symptoms a head CT was ordered to evaluate for central process for her vertigo. Brain CT was unremarkable for acute process per V rad read. Patient was up with walker and ambulating around the emergency department. 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 Given her history of vertigo and her examination today, I do feel her symptoms are consistent with vertigo and less likely are a complication of untreated lyme. The patient was recently seen and treated for a tick bite 2 weeks ago at urgent care. Per their note, there was no tick present but she was started on doxycycline. The note states that she was supposed to get a 10-day course, but she only got 10 pills of medicine, a 5-day course. which she finished over a week ago. At this time the redness on her foot is resolved. The daughter is insisting on Lyme testing, which has been ordered it is a send out. The patient should follow-up with her PCP. She has been discharged with take-home dose of Zofran. Meclizine and Zofran prescription sent to the pharmacy. She will be contacted if she needs any additional treatment for Lyme Medical Records Medical records reviewed: Yes I reviewed the patient's medical records. Lab Data Lab results reviewed: Yes I reviewed the patient's lab results. 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 Father , age 82 No problems noted. Brother , age 82 No problems noted. Maternal Grandfather , age 95 No problems noted. Maternal Grandmother , age 65 No problems noted. Social History Smoking/Tobacco Use Status: Former Tobacco Use Quit Date: 07/11/98 Tobacco: How many years used: 38 Second Hand Exposure: Yes Smoking risk assessment performed?: Yes Alcohol Intake: former Drug use: Never Substance use type: does not use Counseling given: No Counseling provided: none Caregiver/Support person: No Household members: none Housing: house Communication Needs: None Do you need help understanding health information?: Rarely Pets and animals: No Sexually active: No Current gender identity: decline to answer What is your relationship status?: How often do you talk on the phone with friends or family?: three or more times per week How often do you get together with friends or relatives?: decline to answer How often do you attend druze or protestant services?: decline to answer Do you belong to any clubs or organized social groups?: decline to answer Panel score (0-1 are the most socially isolated patients): 1 What type of physical activity do you participate in: decline to answer Duration: decline to answer Frequency: decline to answer Jennie/Restorationist: None Special jennie needs: No Seatbelt use: always Drive intox or ride w/intox auto crane driver: No Do you feel safe at home: Yes Do you feel safe in your relationship?: Yes
[2023-09-14] MEDS: Meclizine 25 MG TAB PO (22:05)
[2023-09-14 22:07] LABS: Abs Immature Grans 0.03 10^3/uL (0.0-0.06); Absolute Basophil Count 0.05 10^3/uL (0.0-0.2); Absolute Eosinophil Count 0.13 10^3/uL (0.0-0.7); Absolute Lymphocyte Count 1.13 10^3/uL (1.2-3.4); Absolute Monocyte Count 0.34 10^3/uL (0.1-0.8); Absolute Neutrophil Count 5.26 10^3/uL (1.2-6.7); Basophils % 0.7; Eosinophils % 1.9; HCT 37.9 % (36.0-46.0); HGB 12.2 g/dL (11.2-15.7); Immature Grans % 0.4; Lymphocytes % 16.3; MCH 31.4 pg (27.0-33.0); MCHC 32.2 % (32.0-36.0); MCV 98 fL (80-95); MPV 9.8 fL (8.0-11.0); Monocytes % 4.9; Neutrophils % 75.8; Platelet Count 151 10^3/uL (130-400); RBC 3.88 10^6/uL (3.93-5.22); RDW 13.7 % (11.7-14.6); RDW-SD 49.2 fL; WBC 6.94 10^3/uL (4.4-10.8)
[2023-09-14] MEDS: Normal Saline 500 ML IV (22:20)
[2023-09-14 22:25] LABS: ALT 18 U/L (14-59); AST 21 U/L (15-37); Albumin 3.7 g/dL (3.4-5.0); Alkaline Phosphatase 80 U/L (46-116); Anion Gap 10.6 mmol/L (3-11); BUN 29 mg/dL (7-18); Bilirubin, Total 0.3 mg/dL (0.2-1.0); CO2 26.4 mmol/L (21.0-32.0); CREATININE 1.2 mg/dL (0.55-1.02); Calcium 9.3 mg/dL (8.5-10.1); Chloride 104 mmol/L (98-107); Estimated GFR 44.36 (mL/min/1.73m2); Glucose 194 mg/dL (74-106); Potassium 4.1 mmol/L (3.5-5.1); Sodium 141 mmol/L (136-145); Total Protein 7.2 g/dL (6.4-8.2); Troponin I < 50 ng/L (< or =60)
--- NOTE | 2023-09-14 23:15 | DI.CT_ITS ---
Exam(s) CT HEAD WO EXAM: CT HEAD WO CLINICAL HISTORY: vomiting. TECHNIQUE: Imaging Protocol: Axial computed tomography images with coronal and sagittal reformatted images were created and reviewed COMPARISON: No exams were available for comparison FINDINGS: There are no skull fractures. There is no fluid in the visualized paranasal sinuses. There is no evidence of intracranial hemorrhage, mass effect, or shift of midline structures. There are no extra-axial fluid collections. The ventricles are not enlarged or shifted and there is no blo od within the ventricular system nor within the basal cisterns. Is moderate bilateral symmetrical periventricular hypodensity consistent with chronic small vessel di sease. There is involutional change consistent with this patient's advanced age. IMPRESSION: No acute intracranial findings on this noninfused CT scan of the brain. Chronic symmetrical white matter ischemic changes and symmetrical involutional change consistent with patient's advanced age. RADIATION DOSE DELIVERED: Total DLP DATA REPOSITORY: All CT scans at this facility are submitted to the National Radiology Data Registry (NRDR) Dose Index Registry (DIR) with the [employer] (ACR). RADIATION OPTIMIZATION: All CT scans at this facility use at least one of these dose optimization te chniques: automated exposure control; mA and/or kV adjustment per patient size (includes targeted exa ms where dose is matched to clinical indication); or iterative reconstruction.
[2023-09-14] MEDS: Ondansetron 4 MG/2 ML VIAL IVP (23:29)
[2023-09-14 23:30] LABS: Bilirubin Negative (Negative); Blood Negative (Negative); Clarity Clear (Clear); Glucose Negative (Negative); Ketones Trace mg/dL (Negative); Leukocyte Esterase Negative (Negative); Nitrite Negative (Negative); Specific Gravity 1.025 (1.005-1.025); Urobilinogen 0.2 mg/dL (Up to 0.2)
[2023-09-15] VITALS (8 sets, daily range): BP systolic 174; BP diastolic 90; PULSE 92–100; RESP 16; TEMP 36.7; O2SAT 90–99
--- NOTE | 2023-09-15 00:35 | DI.VRAD_ITS ---
PROCEDURE INFORMATION: Exam: CT Head Without Contrast Exam date and time: 09/14/2023 11:43 PM Age: 83 years old Clinical indication: Dizziness and other: Vomiting TECHNIQUE: Imaging protocol: Computed tomography of the head without contrast. COMPARISON: CR PARANASAL 12/16/2016 9:11 AM FINDINGS: Brain: Dirf-ir-[id number] volume loss within the brain parenchyma. Multifocal and confluent areas of low attenuation are seen throughout the subcortical and periventricular white matter. No extra-axial fluid collection. No midline shift. No loss of mena-white differentiation to suggest an acute cortical infarct. Cerebral ventricles: No hydrocephalus. Paranasal sinuses: Minimal mucosal thickening within the paranasal sinuses. No fluid levels. Mastoid air cells: The mastoid air cells are well aerated. Orbital cavities: Bilateral lens replacements. The intraorbital contents are otherwise normal appearance. Bones/joints: No evidence for acute skull fracture. Soft tissues: Unremarkable. IMPRESSION: 1. No acute intracranial abnormality. 2. Qbqd-qi-qlmqegqd volume loss with non-specific white matter changes, most commonly seen with chronic microvascular ischemic disease. Dictated and Authenticated by: Kierra Contreras MD. Ordering:KENDY Cohn MD
[2023-09-16 10:09] LABS: Lyme Ab w Rflx to Lyme Confirm Negative (Negative)
== END 2023-09-15 01:16 | disposition home or self-care (01) ==
PROVIDERS: Emergency Provider Emergency Medicine; PCP Nurse Practitioner Family
DX: R42 Dizziness and giddiness (principal); R11.2 Nausea with vomiting, unspecified; I12.9 Hypertensive chronic kidney disease with stage 1 through stage 4 chronic kidney disease, or unspecified chronic kidney disease; N18.30 Chronic kidney disease, stage 3 unspecified
CPT/HCPCS: 36415; 80053; 93005; 96361; 96374; 99284; 70450; 81003; 84484; 85025; 86618; 93010; J2405

== ENCOUNTER 2023-09-21 10:49 | Outpatient (CLI) | payer MEDICARE, SELFPAY ==
[2023-09-23 12:06] LABS: Lyme Ab w Rflx to Lyme Confirm Negative (Negative)
[2023-09-24 13:50] LABS: Anaplasma phagocytophilum Negative (Negative); B. miyamotoi PCR Negative (Negative); Babesia divergens/MO-1 Negative (Negative); Babesia duncani Negative (Negative); Babesia microti Negative (Negative); Ehrlichia chaffeensis Negative (Negative); Ehrlichia ewingii/canis Negative (Negative); Ehrlichia muris eauclairensis Negative (Negative)
== END 2023-09-21 10:50 | disposition home or self-care (01) ==
LOC: LBO 09-27 10:49
PROVIDERS: PCP Nurse Practitioner Family; Visit Provider Family Medicine
DX: S90.862A Insect bite (nonvenomous), left foot, initial encounter (principal)
CPT/HCPCS: 36415; 87798; 86618

== ENCOUNTER 2024-02-09 10:46 | Outpatient (CLI) | payer MEDICARE, SELFPAY ==
[2024-02-09 12:21] LABS: HCT 39.5 % (36.0-46.0); HGB 12.7 g/dL (11.2-15.7); MCH 31.9 pg (27.0-33.0); MCHC 32.2 % (32.0-36.0); MCV 99 fL (80-95); MPV 10.8 fL (8.0-11.0); Platelet Count 152 10^3/uL (130-400); RBC 3.98 10^6/uL (3.93-5.22); RDW 13.5 % (11.7-14.6); RDW-SD 49.4 fL; WBC 5.29 10^3/uL (4.4-10.8)
[2024-02-09 12:30] LABS: Anion Gap 8.8 mmol/L (3-11); BUN 16 mg/dL (7-18); CO2 27.2 mmol/L (21.0-32.0); Calcium 9.1 mg/dL (8.5-10.1); Chloride 111 mmol/L (98-107); Estimated GFR 54.87 (mL/min/1.73m2); Glucose 94 mg/dL (74-106); Potassium 4.6 mmol/L (3.5-5.1); Sodium 147 mmol/L (136-145)
[2024-02-09 12:55] LABS: Hemoglobin A1C 5.6 % (<5.7)
== END 2024-02-09 10:47 | disposition home or self-care (01) ==
LOC: LOS 10:47
PROVIDERS: PCP Nurse Practitioner Family; Referring Provider Nurse Practitioner Family; Visit Provider Nurse Practitioner Family
DX: R73.9 Hyperglycemia, unspecified (principal); I10 Essential (primary) hypertension; D53.9 Nutritional anemia, unspecified; Z00.00 Encounter for general adult medical examination without abnormal findings; L60.9 Nail disorder, unspecified; Z98.890 Other specified postprocedural states
CPT/HCPCS: 36415; 80048; 85027; 83036

== ENCOUNTER 2024-06-01 21:17 | Outpatient (REF) | payer MEDICARE, SELFPAY ==
[2024-06-01 21:40] LABS: Abs Immature Grans 0.01 10^3/uL (0.0-0.06); Absolute Basophil Count 0.06 10^3/uL (0.0-0.2); Absolute Lymphocyte Count 0.93 10^3/uL (1.2-3.4); Absolute Monocyte Count 0.34 10^3/uL (0.1-0.8); Absolute Neutrophil Count 3.69 10^3/uL (1.2-6.7); Basophils % 1.2 %; Eosinophils % 1.9 %; HCT 36.7 % (36.0-46.0); HGB 12.3 g/dL (11.2-15.7); Immature Grans % 0.2 %; Lymphocytes % 18.1 %; MCH 32.6 pg (27.0-33.0); MCHC 33.5 % (32.0-36.0); MCV 97 fL (80-95); MPV 11.4 fL (8.0-11.0); Monocytes % 6.6 %; Platelet Count 165 10^3/uL (130-400); RBC 3.77 10^6/uL (3.93-5.22); RDW 13.5 % (11.7-14.6); RDW-SD 48.6 fL; WBC 5.13 10^3/uL (4.4-10.8)
[2024-06-01 21:41] LABS: ESR 7 mm/hr (0-30)
[2024-06-01 22:13] LABS: ALT 23 U/L (14-59); AST 23 U/L (15-37); Alkaline Phosphatase 65 U/L (46-116); Anion Gap 10.6 mmol/L (3-11); BUN 22 mg/dL (7-18); Bilirubin, Total 0.37 mg/dL (0.2-1.0); CO2 26.4 mmol/L (21.0-32.0); CREATININE 1.1 mg/dL (0.55-1.02); Calcium 9.6 mg/dL (8.5-10.1); Chloride 104 mmol/L (98-107); Estimated GFR 48.94 (mL/min/1.73m2); Glucose 90 mg/dL (74-106); Potassium 4.1 mmol/L (3.5-5.1); Sodium 141 mmol/L (136-145); TSH (W/Ref FT4) 1.25 uIU/mL (0.36-3.74); Total Protein 6.9 g/dL (6.4-8.2); Vitamin B12 265 pg/mL (193-986)
== END 2024-06-01 21:18 | disposition home or self-care (01) ==
LOC: LBN 21:17
PROVIDERS: PCP Nurse Practitioner Family; Visit Provider Nurse Practitioner Family
DX: R26.81 Unsteadiness on feet (principal); R53.1 Weakness
CPT/HCPCS: 80053; 85652; 82607; 84443; 85025

== ENCOUNTER 2024-06-13 01:42 | Outpatient (CLI) | payer MEDICARE, SELFPAY ==
--- NOTE | 2024-06-13 13:28 | DI.RAD_ITS ---
Exam(s) XR LUMBAR SPINE COMPLETE EXAM: XR LUMBAR SPINE COMPLETE CLINICAL HISTORY: worsening sx,unstable gait,r26.81. TECHNIQUE: 2D digital imaging was performed. Five views. COMPARISON: No exams were available for comparison FINDINGS: Exam is somewhat limited by bony demineralization and overlying fecal material.. BONES: No fracture or destructive lesion. The sacrum is obscured by overlying bowel gas and fecal m aterial. Vertebral body heights are grossly maintained. There are severe facet degenerative changes , greater in the lower lumbar levels. DISKS: Multilevel the disc space narrowing. The disc spaces are not well profiled due to scoliosis . ALIGNMENT: Degenerative dextroscoliosis. SOFT TISSUE: Normal. IMPRESSION: Advanced degenerative disc changes and facet degenerative changes. Degenerative scoliosis. No gross evidence of compression fracture. DATA REPOSITORY: RADIATION DOSE DELIVERED:
== END 2024-06-13 02:02 ==
LOC: DI 01:42
PROVIDERS: PCP Nurse Practitioner Family; Visit Provider Nurse Practitioner Family
DX: M48.061 Spinal stenosis, lumbar region without neurogenic claudication (principal)
CPT/HCPCS: 72110

== ENCOUNTER 2024-06-25 01:18 | Outpatient (CLI) | payer MEDICARE, SELFPAY ==
--- NOTE | 2024-06-25 07:30 | DI.MRI_ITS ---
Exam(s) MR BRAIN WO EXAM: MR BRAIN WO CLINICAL HISTORY: worsening symptoms,unstable gait,vertigo,r26.81,r42 TECHNIQUE: Multiplanar multisequence MRI of the brain was performed. COMPARISON: CT CT HEAD WO from 09/14/2023 FINDINGS: The examination is limited due to patient motion artifact. VENTRICLES AND EXTRA AXIAL SPACES: Normal in size and morphology for the patient's age. MIDLINE SHIFT: None. CEREBRAL PARENCHYMA: There is a small faint focus of restricted diffusion involving the right lentifo rm nucleus. There are areas of hyperintense signal seen in the white matter on the FLAIR and T2 weig hted images most consistent with chronic microvascular ischemic disease. No space-occupying lesion i dentified. HEMORRHAGE: None. BRAINSTEM/CEREBELLUM: Normal. CALVARIUM: Normal. VISUALIZED PARANASAL SINUSES/MASTOIDS:Clear. [place]: Normal flow void. [place]: Note is made of a partially empty sella. OTHER FINDINGS: None. IMPRESSION: 1. Age-related cerebral atrophy and chronic microvascular ischemic disease. 2. Small focus of restricted diffusion in the right lentiform nucleus consistent with subacute infarc t. Unexpected findings DATA REPOSITORY:
== END 2024-06-25 01:38 ==
LOC: DI 01:18
PROVIDERS: PCP Nurse Practitioner Family; Visit Provider Nurse Practitioner Family
DX: I67.82 Cerebral ischemia (principal)
CPT/HCPCS: 70551

== ENCOUNTER 2024-06-30 11:24 | Emergency (ER) | payer MEDICARE, SELFPAY ==
[2024-06-30 11:29] VITALS: BP 173/83; PULSE 74; RESP 16; TEMP 36.9; O2SAT 94
--- NOTE | 2024-06-30 11:30 | ED.GENADUL_ITS ---
Discharge Plan Disposition Patient Disposition: Home Discharge Details Clinical Impression: Constipation Primary Care Provider: Anil Snell ED Provider: Agustín Jones Home Meds and New Rx's Prescriptions: New docusate sodium [Dulcolax Stool Softener (dss)] 100 mg capsule 100 mg PO BID Qty: 14 0RF Continued lisinopril 2.5 mg tablet 2.5 mg PO DAILY Qty: 30 0RF polyethylene glycol 3350 17 gram powder in packet 17 g PO BID PRN (Reason: constipation) Qty: 20 0RF ibuprofen 200 mg tablet 200 mg PO BID docusate sodium 100 mg capsule 100 mg PO BID PRN metoprolol tartrate 25 mg tablet 12.5 mg PO BID Qty: 90 3RF lubiprostone 24 mcg capsule 24 mcg PO BID Qty: 60 0RF meclizine 25 mg tablet 25 mg PO BID PRN (Reason: dizziness) Qty: 30 0RF ondansetron 4 mg tablet,disintegrating 4 mg PO Q6H PRN (Reason: nausea and vomiting) Qty: 30 0RF Discharge Instructions Instructions: Constipation in adults Additional Instructions: You were seen in the emergency department for constipation. As we discussed if you develop vomiting abdominal pain or cannot eat or drink as result of nausea please return to the emergency department. Otherwise please take these prescriptions as directed. Please follow-up next week with your primary care provider. Discharge Data Discharge Date/Time-TO BE ENTERED AT DEPARTURE: 06/30/24 12:11 HPI General Date/Time Provider Initiated Documentation: 06/30/24 11:30 . HPI Narrative: MDM This is an overall very well-appearing normothermic and not tachycardic c onstipated but not obstipated 84-year-old female with soft nontender abdomen and no emesis making my suspicion low for small bowel obstruction. No right lower quadrant tenderness to suggest appendicitis. No epigastric tenderness to suggest lipase. No rash to abdomen to suggest zoster. No signs of rectal prolapse on exam. No flank tenderness to suggest ureterolithiasis. No dysuria nor frequency so my suspicion is low for urinary tract infection. Given no nausea nor vomiting nor shortness of breath my suspicion is low for ACS I did not send a troponin nor obtain ECG. The patient, her daughter and I discussed that she should ambulate is much as possible using her walker drink plenty of fluids and take prescribed stool softeners using Colace. Next step in management would be motility agent with senna but will defer this decision to reassessment by primary care which I advised next week. Patient and her daughter and I discussed that she should be return to the ED if she developed nausea abdominal pain or vomiting that did not stop. She understood her return indications and was discharged with an empiric trial of expectant outpatient management. HPI This is an 84-year-old female arrived to the emergency department via private vehicle with her daughter in setting of concern of her rectal prolapse. Patient has a history of constipation and was recently started on MiraLAX. She had a bowel movement this morning that was small. Her daughter was concerned that she had prolapse yesterday. She has not been vomiting nor had any fevers. She has had a remote cholecystectomy. She denies dysuria frequency and abdominal pain. She has had no rectal pain or any rectal bleeding. She denies history of ureterolithiasis. Exam General: Well-appearing in no acute distress speaking in complete sentences. Head: Normocephalic, atraumatic. Eye: Extraocular eye movements intact. No conjunctival injection. No scleral icterus. Ear, nose, mouth, throat: Grossly normal inspection. Normal voice, handling secretions normally. Neck: Trachea midline. Cardiovascular: Well-perfused distal extremities. Respiratory: Nonlabored respiration. Gastrointestinal: Nondistended abdomen. Soft. Nontender. No rebound. No guarding. No rash to abdomen. Rectal: With patient's nurse Effie I performed an external rectal inspection. No signs of any rectal bleeding nor prolapse. On internal exam patient had soft stool in the rectal vault. I was able to manually disimpact a small amount of stool which patient tolerated without discomfort. Musculoskeletal: No edema. Moving all 4 extremities spontaneously. Skin: Normal for age and race, grossly normal temperature and turgor. No acute rash. Neurologic: Alert and appropriate, no apparent acute deficits. Related Data Home Medications ?Medication ?Instructions ?Recorded ?Confirmed polyethylene glycol 3350 17 gram 17 g PO BID PRN constipation #20 ea 05/13/20 06/30/24 oral powder packet docusate sodium 100 mg capsule 100 mg PO BID PRN 12/22/21 06/30/24 ibuprofen 200 mg tablet 200 mg PO BID 12/22/21 06/30/24 metoprolol tartrate 25 mg tablet 12.5 mg (1/2 x 25 mg) PO BID #90 08/12/23 06/30/24 tabs meclizine 25 mg tablet 25 mg PO BID PRN dizziness #30 tabs 09/15/23 06/30/24 ondansetron 4 mg disintegrating 4 mg PO Q6H PRN nausea and 09/15/23 06/30/24 tablet vomiting #30 tabs lisinopril 2.5 mg tablet 2.5 mg PO DAILY #30 tabs 06/28/24 06/30/24 lubiprostone 24 mcg capsule 24 mcg PO BID #60 caps 06/29/24 06/30/24 docusate sodium 100 mg capsule 100 mg PO BID #14 caps 06/30/24 (Dulcolax Stool Softener (docusate)) Previous Rx's ?Medication ?Instructions ?Recorded polyethylene glycol 3350 17 gram 17 g PO BID PRN constipation #20 ea 05/13/20 oral powder packet metoprolol tartrate 25 mg tablet 12.5 mg (1/2 x 25 mg) PO BID #90 08/12/23 tabs meclizine 25 mg tablet 25 mg PO BID PRN dizziness #30 tabs 09/15/23 ondansetron 4 mg disintegrating 4 mg PO Q6H PRN nausea and 09/15/23 tablet vomiting #30 tabs lisinopril 2.5 mg tablet 2.5 mg PO DAILY #30 tabs 06/28/24 lubiprostone 24 mcg capsule 24 mcg PO BID #60 caps 06/29/24 docusate sodium 100 mg capsule 100 mg PO BID #14 caps 06/30/24 (Dulcolax Stool Softener (docusate)) Allergies Allergy/AdvReac Type Severity Reaction Status Date / Time chocolate flavor AdvReac Mild Constipatio Verified 06/30/24 11:49 n General NOHEMY: 3 Medical Decision Making Quality:SDOH Health Related Social Needs: No Data to Display PFSH All Active Problems (Updated 06/30/24 @ 11:53 by Agustín Jones MD) Constipation (Acute) Unstable gait (Acute) Nail disorder (Acute) Edema (Acute) Left hip pain (Acute) Skin lesion (Acute) CKD (chronic kidney disease) stage 3, GFR 30-59 ml/min (Acute) 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 -thickening palpated lower, inner right breast Urinary retention (Acute) Functional bowel disorder (Chronic) constipation and diarrhea Hypertension (Chronic) Vertigo (Chronic) Breast cancer (Chronic) Right - Lumpectomy 1997, chemo & radiation Macrocytic anemia (Chronic) Medical History (Updated 06/30/24 @ 11:53 by Agustín Jones MD) Tick bite Facial rash Constipation Bursitis of left hip Dilated cbd, acquired Atypical chest pain Surgical History Closed intertrochanteric fracture of right hip Status post TFN DOS: 03/10/20 History of open reduction and internal fixation (ORIF) procedure Left hip 2019 H/O lumpectomy Cholecystectomy (12/30/16) Family History Mother , age 93 No problems noted. Father , age 82 No problems noted. Brother , age 82 No problems noted. Maternal Grandfather , age 95 No problems noted. Maternal Grandmother , age 65 No problems noted. Social History (Updated 02/17/24 @ 12:13 by Arabella Gomez) Smoking/Tobacco Use Status: Former Tobacco Use Quit Date: 07/11/98 Tobacco: How many years used: 38 Second Hand Exposure: Yes Smoking risk assessment performed?: Yes Alcohol Intake: former Drug use: Never Substance use type: does not use Counseling given: No Counseling provided: none Caregiver/Support person: No Household members: none Housing: house Communication Needs: None Do you need help understanding health information?: Rarely Pets and animals: No Sexually active: No Current gender identity: decline to answer What is your relationship status?: How often do you talk on the phone with friends or family?: three or more times per week How often do you get together with friends or relatives?: twice per week How often do you attend hinduism or adventist services?: decline to answer Do you belong to any clubs or organized social groups?: yes Panel score (0-1 are the most socially isolated patients): 2 What type of physical activity do you participate in: decline to answer Duration: < 15 minutes/day Frequency: decline to answer Jennie/Amish: None Special jennie needs: No Seatbelt use: always Drive intox or ride w/intox local delivery truck driver: No Do you feel safe at home: Yes Do you feel safe in your relationship?: Yes
[2024-06-30 11:50] VITALS: RESP 18
[2024-06-30 11:52] VITALS: BP 175/82; PULSE 69; RESP 18; TEMP 36.9; O2SAT 97
[2024-06-30] MEDS: Docusate Sodium 100 MG CAP PO (11:55)
== END 2024-06-30 12:11 | disposition home or self-care (01) ==
PROVIDERS: Emergency Provider Emergency Medicine; PCP Nurse Practitioner Family
DX: K59.00 Constipation, unspecified (principal)
CPT/HCPCS: 99283

== ENCOUNTER 2024-08-22 02:22 | Outpatient (CLI) | payer MEDICARE, SELFPAY ==
--- NOTE | 2024-08-22 07:00 | DI.US_ITS ---
Exam(s) US RENAL EXAM: US RENAL CLINICAL HISTORY: worsening sx,urinary retention,urinary incontinence,r32,r33.9. TECHNIQUE: [place] scale, color and spectral Doppler were used. COMPARISON: CT ABD PELVIS WITH CONTRAST from 12/15/2016 US ABDOMEN ULTRASOUND (P) from 12/15/2016 MR MRI ABDOMEN WO CONTRAST from 12/15/2016 FINDINGS: Right kidney: 8.7cm Echogenicity: Normal Hydronephrosis: No. Mildly prominent extrarenal pelvis. Cyst or mass: No Nephrolithiasis: No Left kidney: 9.6cm Echogenicity: Normal Hydronephrosis: No Cyst or mass: No Nephrolithiasis: No Bladder:Normal. Prevoid vol:453 cc Postvoid vol: 192 cc IMPRESSION: Large postvoid residual. DATA REPOSITORY:
== END 2024-08-22 02:42 ==
LOC: DI 02:23
PROVIDERS: PCP Nurse Practitioner Family; Visit Provider Nurse Practitioner Family
DX: R33.9 Retention of urine, unspecified (principal); R32 Unspecified urinary incontinence
CPT/HCPCS: 76770

== ENCOUNTER → 2024-09-19 13:12 | Outpatient (BNVA) | payer MEDICARE, SELFPAY | PROVIDERS: PCP Nurse Practitioner Family; Referring Provider Nurse Practitioner Family; Visit Provider Podiatrist | DX: L60.3 Nail dystrophy (principal); B35.1 Tinea unguium; R60.0 Localized edema; G62.9 Polyneuropathy, unspecified; I73.89 Other specified peripheral vascular diseases; R25.2 Cramp and spasm; L65.9 Nonscarring hair loss, unspecified; R23.8 Other skin changes; L60.2 Onychogryphosis; L60.8 Other nail disorders; L85.8 Other specified epidermal thickening | CPT/HCPCS: 11721 ==

== ENCOUNTER 2024-10-04 14:59 | Emergency (ER) | payer MEDICARE, SELFPAY ==
[2024-10-04] VITALS (23 sets, daily range): BP systolic 139–179; BP diastolic 72–97; PULSE 68–90; RESP 13–20; TEMP 37.1; O2SAT 93–98
--- NOTE | 2024-10-04 15:00 | DI.CT_ITS ---
Exam(s) CT BRAIN NECK CTA EXAM: CT BRAIN NECK CTA CLINICAL HISTORY: ?cva. TECHNIQUE: Imaging Protocol: Axial CT angiography was performed with multi-slice acquisition and mu lti-planar and MIP reconstructions. CONTRAST MATERIAL: Intravenous: Omnipaque 350 Contrast volume:70 ml COMPARISON: CR CHEST 2 VIEWS PA,LAT from 12/14/[address] HEAD WO from 09/14/2023 MR MR BRAIN WO from 06/25/2024 FINDINGS: CT Head W/O and W contrast: Ventricles and Extra axial spaces: Normal in size and morphology for the patient's age. Hemorrhage: None. Cerebral parenchyma: No evidence of acute infarct or mass. Mild atrophy. Moderate microvascular ricky nges. Midline shift: None. Brainstem/Cerebellum: No acute findings.. Calvarium: Normal. Visualized Paranasal sinuses/Mastoids: Clear. Soft Tissues: Unremarkable. Enhancement: Normal. CTA Brain W: Internal Carotid Arteries: Petrous: Normal. Cavernous: Normal. Cerebral: Normal. Middle Cerebral Arteries: Right: No aneurysm, occlusion or significant stenosis. Left: No aneurysm, occlusion or significant stenosis. Anterior Cerebral Arteries: Right: No aneurysm, occlusion or significant stenosis. Left: No aneurysm, occlusion or significant stenosis. Posterior cerebral Arteries: Right: No aneurysm, occlusion or significant stenosis. Left: No aneurysm, occlusion or significant stenosis. Vertebral Arteries: Right: No aneurysm, occlusion or significant stenosis. Left: No aneurysm, occlusion or significant stenosis. Basilar Artery: No aneurysm, occlusion or significant stenosis. CTA Neck W: Common Carotid: Calcification at the bulbs. Right: No dissection, occlusion or significant stenosis. Left: No dissection, occlusion or significant stenosis. External Carotid: Right: No dissection, occlusion or significant stenosis. Left: No dissection, occlusion or significant stenosis. Internal Carotid: Right: Proximal calcification with mild stenosis. No dissection, occlusion or significant stenosis. Left: Proximal calcification with mild stenosis. No dissection, occlusion or significant stenosis. Vertebral Artery: Right: Diminutive caliber throughout, anatomic variant. No dissection, occlusion or significant sten osis. Left: Dominant no dissection, occlusion or significant stenosis. Lung Apices: Biapical pleural thickening, right greater than left. Bones: No acute abnormality. Degenerative changes in the cervical spine. Soft Tissues: Normal. IMPRESSION: 1. CTA brain: Normal CTA examination of the [place]. 2. Head CT: Atrophy and white matter changes of small vessel disease. No acute abnormality. 3. CTA neck: Calcification of the common carotid bulbs and proximal internal carotid arteries causing mild stenosis. RADIATION DOSE DELIVERED: Total DLP DATA REPOSITORY: All CT scans at this facility are submitted to the National Radiology Data Registry (NRDR) Dose Index Registry (DIR) with the [employer] (ACR). RADIATION OPTIMIZATION: All CT scans at this facility use at least one of these dose optimization te chniques: automated exposure control; mA and/or kV adjustment per patient size (includes targeted exa ms where dose is matched to clinical indication); or iterative reconstruction.
--- NOTE | 2024-10-04 15:00 | RT.EKG_ITS ---
APPROVED REPORT Exam: Resting ECG Reason for Exam: confusion Patient Location: E HR:77 bpm ECG Measurements Heart Rate 77 AXIS ND 234 P 0 QRSd 137 QRS -10 QT 430 T 103 QTc 488 Conclusion Sinus rhythm...normal P axis, V-rate 60- 99 Prolonged ND interval...ND >220, V-rate 50- 90 Left bundle branch block...QRSd>120, broad/notched R ST elevation secondary to IVCD...Multiple VCG criteria
--- NOTE | 2024-10-04 15:20 | ED.GENADUL_ITS ---
Discharge Plan Disposition Patient Disposition: Home Condition: Stable Discharge Details Clinical Impression: Altered mental status Primary Care Provider: Anil Snell ED Provider: Lloyd Miranda Home Meds and New Rx's Prescriptions: Continued metoprolol tartrate 25 mg tablet 12.5 mg PO BID Qty: 90 3RF lisinopril 5 mg tablet 5 mg PO DAILY Qty: 90 4RF ketoconazole 2 % cream 1 applic topical DAILY Qty: 120 6RF Rx Instructions: Apply to toenails once daily ibuprofen 200 mg tablet 200 mg PO BID meclizine 25 mg tablet 25 mg PO BID PRN (Reason: dizziness) Qty: 30 0RF ondansetron 4 mg tablet,disintegrating 4 mg PO Q6H PRN (Reason: nausea and vomiting) Qty: 30 0RF aspirin [Aspirin Childrens] 81 mg tablet,chewable 81 mg PO DAILY Discharge Instructions Additional Instructions: Your blood work, exam and imaging did not show any concerning findings at this time. Follow-up with your primary care provider within 1 to 2 weeks. If you feel more ill or have new symptoms such as changes in vision, speech abnormalities or weakness return to the emergency department for reevaluation HPI General Date/Time Provider Initiated Documentation: 10/04/24 15:00 . Limitations to Documentation: no limitations . Information obtained by: patient and family . History of Present Illness 84 year old F presents to the emergency department with the chief complaint of trouble remembering television channels, described as moderate, Patient started experiencing this day(s) (1) and it has been constant. No relieving factors improve symptom(s), No exacerbating factors reported . Patient notes denies chest pain and shortness of breath. Patient did receive the following treatments prior to arrival, none Related Data Home Medications ?Medication ?Instructions ?Recorded ?Confirmed ibuprofen 200 mg tablet 200 mg PO BID 12/22/21 10/04/24 meclizine 25 mg tablet 25 mg PO BID PRN dizziness #30 tabs 09/15/23 10/04/24 ondansetron 4 mg disintegrating 4 mg PO Q6H PRN nausea and 09/15/23 10/04/24 tablet vomiting #30 tabs lisinopril 5 mg tablet 5 mg PO DAILY #90 tabs 08/09/24 10/04/24 metoprolol tartrate 25 mg tablet 12.5 mg (1/2 x 25 mg) PO BID #90 08/09/24 10/04/24 tabs ketoconazole 2 % topical cream 1 applic topical DAILY #120 grams 09/19/24 10/04/24 aspirin 81 mg chewable tablet 81 mg PO DAILY 10/04/24 10/04/24 (Aspirin Childrens) Previous Rx's ?Medication ?Instructions ?Recorded meclizine 25 mg tablet 25 mg PO BID PRN dizziness #30 tabs 09/15/23 ondansetron 4 mg disintegrating 4 mg PO Q6H PRN nausea and 09/15/23 tablet vomiting #30 tabs lisinopril 5 mg tablet 5 mg PO DAILY #90 tabs 08/09/24 metoprolol tartrate 25 mg tablet 12.5 mg (1/2 x 25 mg) PO BID #90 08/09/24 tabs ketoconazole 2 % topical cream 1 applic topical DAILY #120 grams 09/19/24 Allergies Allergy/AdvReac Type Severity Reaction Status Date / Time chocolate flavor AdvReac Mild Constipatio Verified 10/04/24 15:09 n General Stated Complaint: AMS/LOC NOHEMY: 3 Review of Systems All systems reviewed & are unremarkable except as noted in HPI and below Constitutional Constitutional: Denies chills, Denies fever(s) and Denies weakness Cardiovascular Cardiovascular: Denies chest pain and Denies dyspnea Respiratory Respiratory: Denies cough and Denies dyspnea Gastrointestinal Gastrointestinal: Denies abdominal pain, Denies nausea and Denies vomiting Neurologic Neurologic: Reports confusion and Denies weakness Psychiatric Psychiatric: Reports confusion Exam Const General: no acute distress Orientation: alert HENCA Head: normal to inspection Ears: external ears normal General nose exam: external nose normal Mouth: moist mucous membranes Eyes General: appearance normal, both eyes and all related structures Neck Neck: normal visual inspection Resp Effort & Inspection: normal respiratory effort and able to speak in complete sentences Cardio Rate: regular rate Skin General skin exam: no rashes or lesions noted Neuro General: patient alert and patient oriented x3 Cranial Nerves: CN's II-XI intact bilaterally, PERRL, accommodation normal and EOM intact bilaterally Cognition: normal cognition Speech: speech normal Gait: normal gait Motor: muscle tone normal throughout Sensory Exam: no sensory deficits noted Extrem General: normal to inspection Psych Mental Status: mental status grossly normal Course Vital Signs Vital signs: Vital Signs Temperature 37.1 C 10/04/24 15:04 Blood Pressure 170/75 H 10/04/24 15:04 Pulse Oximetry 98 10/04/24 15:04 Temperature 37.1 C 10/04/24 15:04 Temperature Source Oral 10/04/24 15:04 Blood Pressure 170/75 H 10/04/24 15:04 Blood Pressure Position Sitting 10/04/24 15:04 Pulse Oximetry 98 10/04/24 15:04 Oxygen Delivery Method Room Air 10/04/24 15:04 Oxygen Flow Rate 0 10/04/24 15:04 Pain Level 0 10/04/24 15:04 Medical Decision Making 84-year-old female with a history of peripheral vascular disease, prior CVA, CKD, who comes in with her daughter with concerns for forgetfulness. Last known fully normal was Tuesday of this week. She said the last few days she has been having difficulty remembering channels on the TV and then also her daughter reported she is having trouble figuring out her computer though her computer is new for the patient. Patient denies ever have any changes in speech or vision. She denies having any weakness. She is alert and oriented x 4 and arrival. She has no focal motor or neurological deficits noted on exam with an NIH of 0 currently. She has clear speech. Her history does not seem entirely consistent with CVA/TIA will check a CBC, CMP troponins and CT CTA of the head and neck. Labs show no significant findings, UA shows some signs of UTI but she has no symptoms of this so we will wait for culture results. Imaging unremarkable. She is feeling well and has no complaints and requesting discharge. Given reassuring workup I feel this is reasonable. She will follow-up with her PCP and return precautions given Differential Diagnosis Differential Diagnosis: Dementia, TIA, electrolyte abnormality Medical Records Medical records reviewed: Yes I reviewed the patient's medical records. Lab Data Lab results reviewed: Yes I reviewed the patient's lab results. ECG Data Attestation: I personally reviewed and interpreted this ECG (s) as follows: Prior ECG tracings: available for review Interpretation: sinus rate of 88 pr 234 no stemi Quality:SDOH Health Related Social Needs: No Data to Display PFSH All Active Problems (Updated 10/04/24 @ 18:23 by Lloyd Miranda MD) Altered mental status (Acute) PVD (peripheral vascular disease) (Chronic) PAD (peripheral artery disease) (Acute) Neuropathy (Acute) Onychomycosis (Acute) Dystrophia unguium (Acute) History of CVA (cerebrovascular accident) (Acute) Urinary incontinence (Acute) Unstable gait (Acute) Nail disorder (Acute) Edema (Acute) Left hip pain (Acute) Skin lesion (Acute) CKD (chronic kidney disease) stage 3, GFR 30-59 ml/min (Acute) 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 -thickening palpated lower, inner right breast Urinary retention (Acute) Functional bowel disorder (Chronic) constipation and diarrhea Hypertension (Chronic) Vertigo (Chronic) Breast cancer (Chronic) Right - Lumpectomy 1997, chemo & radiation Macrocytic anemia (Chronic) Medical History Tick bite Facial rash Constipation Bursitis of left hip Dilated cbd, acquired Atypical chest pain Surgical History Closed intertrochanteric fracture of right hip Status post TFN DOS: 03/10/20 History of open reduction and internal fixation (ORIF) procedure Left hip 2019 H/O lumpectomy Cholecystectomy (12/30/16) Family History Mother , age 93 No problems noted. Father , age 82 No problems noted. Brother , age 82 No problems noted. Maternal Grandfather , age 95 No problems noted. Maternal Grandmother , age 65 No problems noted. Social History Smoking/Tobacco Use Status: Former Tobacco Use Quit Date: 07/11/98 Tobacco: How many years used: 38 Second Hand Exposure: Yes Smoking risk assessment performed?: Yes Alcohol Intake: former Drug use: Never Substance use type: does not use Counseling given: No Counseling provided: none Caregiver/Support person: No Household members: none Housing: house Communication Needs: None Do you need help understanding health information?: Rarely Pets and animals: No Sexually active: No Current gender identity: decline to answer What is your relationship status?: How often do you talk on the phone with friends or family?: three or more times per week How often do you get together with friends or relatives?: twice per week How often do you attend hoahaoism or denominational services?: decline to answer Do you belong to any clubs or organized social groups?: yes Panel score (0-1 are the most socially isolated patients): 2 What type of physical activity do you participate in: decline to answer Duration: < 15 minutes/day Frequency: decline to answer Jennie/Episcopal: None Special jennie needs: No Seatbelt use: always Drive 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
[2024-10-04 15:27] LABS: Abs Immature Grans 0.02 10^3/uL (0.0-0.06); Absolute Basophil Count 0.06 10^3/uL (0.0-0.2); Absolute Eosinophil Count 0.18 10^3/uL (0.0-0.7); Absolute Lymphocyte Count 0.84 10^3/uL (1.2-3.4); Absolute Monocyte Count 0.25 10^3/uL (0.1-0.8); Absolute Neutrophil Count 3.71 10^3/uL (1.2-6.7); Basophils % 1.2 %; Eosinophils % 3.6 %; HCT 36.7 % (36.0-46.0); HGB 12.2 g/dL (11.2-15.7); Immature Grans % 0.4 %; Lymphocytes % 16.6 %; MCH 32.6 pg (27.0-33.0); MCHC 33.2 % (32.0-36.0); MCV 98 fL (80-95); MPV 10.3 fL (8.0-11.0); Monocytes % 4.9 %; Neutrophils % 73.3 %; Platelet Count 180 10^3/uL (130-400); RBC 3.74 10^6/uL (3.93-5.22); RDW 12.9 % (11.7-14.6); RDW-SD 46.3 fL; WBC 5.06 10^3/uL (4.4-10.8)
[2024-10-04 15:36] LABS: PTT Activated 28.5 sec (20.6-30.2); Prothrombin Time 9.6 sec (9.1-11.1)
[2024-10-04] MEDS: Normal Saline - Diluent 50 ML VIAL IJ (16:02)
[2024-10-04] MEDS: Omnipaque 350 MG/ML 100 ML BTL IJ (16:03)
[2024-10-04 16:19] LABS: COVID-19 PCR Negative (Negative); Influenza A PCR Negative (Negative); Influenza B PCR Negative (Negative); RSV PCR Negative (Negative); Source Nasopharynx
[2024-10-04 16:21] LABS: ALT 23 U/L (14-59); AST 19 U/L (15-37); Albumin 3.6 g/dL (3.4-5.0); Alkaline Phosphatase 80 U/L (46-116); Anion Gap 8.7 mmol/L (3-11); BUN 20 mg/dL (7-18); Bilirubin, Total 0.3 mg/dL (0.2-1.0); CO2 27.3 mmol/L (21.0-32.0); CREATININE 1.1 mg/dL (0.55-1.02); Calcium 9.7 mg/dL (8.5-10.1); Chloride 109 mmol/L (98-107); Estimated GFR 48.94 (mL/min/1.73m2); Glucose 108 mg/dL (74-106); Magnesium 2.2 mg/dL (1.8-2.4); Potassium 4.4 mmol/L (3.5-5.1); Sodium 145 mmol/L (136-145); Total Protein 7.1 g/dL (6.4-8.2); Troponin I 11 ng/L (<or=51)
[2024-10-04 16:40] LABS: Bilirubin Negative (Negative); Blood Negative (Negative); Clarity Sl Cloudy (Clear); Glucose Negative (Negative); Ketones Negative (Negative); Leukocyte Esterase Small (Negative); Nitrite Negative (Negative); Urobilinogen 0.2 mg/dL (Up to 0.2)
[2024-10-04 16:48] LABS: RBC Negative HPF (0-2)
[2024-10-04 16:49] LABS: Bacteria Many HPF (Negative); C & S Indicated? Yes; Casts Negative LPF (Negative); Crystals Negative HPF (Negative); Epithelial Cells Rare HPF (Negative); Mucus Negative (Negative)
[2024-10-04 18:32] LABS: Troponin I 11 ng/L (<or=51)
--- NOTE | 2024-10-06 09:59 | NUR.NOTE ---
Access chart to determine if an antibiotic was dispensed on discharged for urine culture. Nursing Note:
--- NOTE | 2024-10-06 10:12 | W.ED.FU ---
Date of service: 10/04/24 Follow Up Plan: Culture results reviewed. Culture is growing mixed jo, gram-positive, likely contaminant. Given her lack of symptoms, no indication for antibiotic therapy for this contaminated specimen.
== END 2024-10-04 18:38 | disposition home or self-care (01) ==
PROVIDERS: Emergency Provider Emergency Medicine; PCP Nurse Practitioner Family
DX: R41.82 Altered mental status, unspecified (principal); I10 Essential (primary) hypertension; Z86.73 Personal history of transient ischemic attack (TIA), and cerebral infarction without residual deficits; Z79.82 Long term (current) use of aspirin; Z87.891 Personal history of nicotine dependence
CPT/HCPCS: 36415; 70496; 70498; 80053; 82962; 87637; 93005; 99285; 81003; 81015; 83735; 84484; 85025; 85610; 85730; 87086; 93010; 99284; J3490

== ENCOUNTER → 2024-11-06 12:47 | Outpatient (BNVA) | payer MEDICARE, SELFPAY | PROVIDERS: PCP Nurse Practitioner Family; Referring Provider Nurse Practitioner Family; Visit Provider Nurse Practitioner Gerontology | DX: N39.46 Mixed incontinence (principal); R33.8 Other retention of urine; K59.00 Constipation, unspecified | CPT/HCPCS: 99215 ==

== ENCOUNTER 2024-11-15 09:16 | Emergency (ER) | payer MEDICARE, SELFPAY ==
[2024-11-15 09:18] VITALS: BP 176/85; PULSE 68; RESP 15; TEMP 36.3; O2SAT 96
[2024-11-15 09:20] VITALS: BP 176/85; PULSE 68; RESP 15; TEMP 36.3; O2SAT 96
--- NOTE | 2024-11-15 09:36 | ED.GENADUL_ITS ---
Discharge Plan Disposition Patient Disposition: Home Condition: Stable Discharge Details Clinical Impression: Urinary tract infection Primary Care Provider: Anil Snell ED Provider: Giovanni Calderon Home Meds and New Rx's Prescriptions: New cephalexin 500 mg capsule 500 mg PO QID 10 Days Qty: 40 0RF Continued metoprolol tartrate 25 mg tablet 12.5 mg PO BID Qty: 90 3RF lisinopril 5 mg tablet 5 mg PO DAILY Qty: 90 4RF ketoconazole 2 % cream 1 applic topical DAILY Qty: 120 6RF Rx Instructions: Apply to toenails once daily ibuprofen 200 mg tablet 200 mg PO BID meclizine 25 mg tablet 25 mg PO BID PRN (Reason: dizziness) Qty: 30 0RF ondansetron 4 mg tablet,disintegrating 4 mg PO Q6H PRN (Reason: nausea and vomiting) Qty: 30 0RF aspirin [Aspirin Childrens] 81 mg tablet,chewable 81 mg PO DAILY Discharge Instructions Instructions: Cephalexin, Urinary Tract Infection, Adult ED Additional Instructions: You were seen in the emergency department for your multiple minor falls without any injuries reported, you are not on any blood thinners have have not hit your head, you experience no chest pain throughout any of this, you endorse worsening neuropathy of your feet, have chronic history of unstable gait, please follow-up with your neurologist as planned there is no definitive emergency room treatment for neuropathy of the feet, you were found to have a urinary tract infection which could be contributing to your multiple falls, I have prescribed you antibiotics sent to [facility] in [place]. Please return to the emergency department for any further falls with injury, chest pain, palpitations, progressive neurological symptoms or any other emergent concerns. Referrals: Anil Snell, [employer] [Primary Care Provider] - Discharge Data Discharge Date/Time-TO BE ENTERED AT DEPARTURE: 11/15/24 14:03 HPI General Date/Time Provider Initiated Documentation: 11/15/24 09:33 . HPI Narrative: 84 year-old female presents to ED today by EMS with a chief complaint of multiple falls over the past several days- recently was given a LifeAlert by family, with chronic neuropathy to feet. Quality described as denies pain from any of these falls, states that her numbness has gotten worse, no radiation to chest pain, palpitations, shortness of breath, slurred speech, headstrike, LOC, neck pain, abdominal pain, nausea/vomiting, fever, diarrhea, black/bloody stools. Severity is described as 0. Palliating factors include nothing specific. Provoking factors include nothing specific. Patient not anticoagulated. Related Data Home Medications ?Medication ?Instructions ?Recorded ?Confirmed ibuprofen 200 mg tablet 200 mg PO BID 12/22/21 11/12/24 meclizine 25 mg tablet 25 mg PO BID PRN dizziness #30 tabs 09/15/23 11/12/24 ondansetron 4 mg disintegrating 4 mg PO Q6H PRN nausea and 09/15/23 11/12/24 tablet vomiting #30 tabs lisinopril 5 mg tablet 5 mg PO DAILY #90 tabs 08/09/24 11/12/24 metoprolol tartrate 25 mg tablet 12.5 mg (1/2 x 25 mg) PO BID #90 08/09/24 11/12/24 tabs ketoconazole 2 % topical cream 1 applic topical DAILY #120 grams 09/19/24 11/12/24 aspirin 81 mg chewable tablet 81 mg PO DAILY 10/04/24 11/12/24 (Aspirin Childrens) cephalexin 500 mg capsule 500 mg PO QID 10 days #40 caps 11/15/24 Previous Rx's ?Medication ?Instructions ?Recorded meclizine 25 mg tablet 25 mg PO BID PRN dizziness #30 tabs 09/15/23 ondansetron 4 mg disintegrating 4 mg PO Q6H PRN nausea and 09/15/23 tablet vomiting #30 tabs lisinopril 5 mg tablet 5 mg PO DAILY #90 tabs 08/09/24 metoprolol tartrate 25 mg tablet 12.5 mg (1/2 x 25 mg) PO BID #90 08/09/24 tabs ketoconazole 2 % topical cream 1 applic topical DAILY #120 grams 09/19/24 cephalexin 500 mg capsule 500 mg PO QID 10 days #40 caps 11/15/24 Allergies Allergy/AdvReac Type Severity Reaction Status Date / Time chocolate flavor AdvReac Mild Constipatio Verified 11/06/24 13:00 n General Stated Complaint: GenMedical NOHEMY: 3 Review of Systems All systems reviewed & are unremarkable except as noted in HPI and below Exam Narrative Exam Narrative: GENERAL APPEARANCE: Well-nourished, non-toxic, awake and alert, atraumatic, no acute distress. SKIN: Warm, pink, dry, intact, without rashes/lesions/ulcerations. HEAD: Normocephalic, atraumatic, normal hair distribution for gender/age. EYES: Normal conjunctiva, no exudates on lids/lashes, EOMs intact without nystagmus ENT: Nares patent, no circumoral cyanosis, no facial swelling NECK: Supple, trachea midline, painless cervical ROM, no midline vertebral tenderness/crepitus/step-offs. LUNGS/CHEST: Lungs CTA bilaterally-no rhonchi/rales/wheezes diffusely, non- labored respirations, normal A/P diameter, symmetrical expansion, no chest wall deformity HEART (CV/PV): Regular rate and rhythm without murmur, no peripheral edema, no JVD. ABDOMEN: Soft, non-distended, no guarding, no tenderness. MSK: Normal ROM, no swelling/deformity to bilateral UEs or LEs, moving all extremities without weakness, no cyanosis, spine midline without tenderness, normal curvature. NEURO: Mental Status AAOx4 - alert to person, place, time, events No facial droop, no forehead involvement. Motor: No focal weakness - strength 5/5 in bilateral UEs and LEs, proximal and distal, symmetric. Sensory: sensation intact to light touch globally. Gait unsteady at baseline PSYCH: euthymic, cooperative, pleasant, appropriate speech Course Vital Signs Vital signs: Vital Signs Temperature 36.3 C L 11/15/24 09:18 Pulse 68 11/15/24 09:18 Respiratory Rate 15 11/15/24 09:18 Blood Pressure 176/85 H 11/15/24 09:18 Pulse Oximetry 96 11/15/24 09:18 Temperature 36.3 C L 11/15/24 09:20 Temperature Source Temporal Artery Scan 11/15/24 09:20 Pulse 68 11/15/24 09:20 Respiratory Rate 15 11/15/24 09:20 Blood Pressure 176/85 H 11/15/24 09:20 Blood Pressure Position Sitting 11/15/24 09:20 Pulse Oximetry 96 11/15/24 09:20 Oxygen Delivery Method Room Air 11/15/24 09:20 Oxygen Flow Rate 0 11/15/24 09:20 Pain Level 0 11/15/24 09:20 Medical Decision Making This dictation utilizes [id number] dictation software and may contain unedited grammatical errors. 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 Quality described as denies pain from any of these falls, states that her numbness has gotten worse, no radiation to chest pain, palpitations, shortness of breath, slurred speech, headstrike, LOC, neck pain, abdominal pain, nausea/vomiting, fever, diarrhea, black/bloody stools. Severity is described as 0. Palliating factors include nothing specific. Provoking factors include nothing specific. Patients' medical history: Atypical chest pain, peripheral vascular disease, PAD, neuropathy, history of CVA, unsteady gait at baseline, edema, CKD, hypertension, vertigo. Family and social history: Lives independently, eats normal diet. Pertinent exam findings / vital signs include no scalp hematoma, no periorbital ecchymosis, no spinal tenderness, no abdominal tenderness, benign cardiopulmonary exam, neuro intact with minor sensory deficits of both feet of chronic nature. Differential / pathologies of concern include neuropathy, unsteady gait at baseline, fall, nontrauma, electrolyte abnormality, ACS, UTI Diagnostic studies of: - CBC, CMP, magnesium, serial troponins, lipase, TSH, UA, EKG. - CBC shows mild leukopenia, no anemia - CMP without actionable abnormality - Serial troponins negative with reliable onset - Lipase negative - TSH within normal limits - There is a urinary tract infection on UA likely source of increased falls - EKG without ischemic changes, shows chronic left bundle branch block without ischemic changes, does not meet Sgarbossa criteria Interventions of: - Rx for Keflex. ED Course/Assessment/Plan: 84-year-old female with unsteady gait at baseline and known chronic neuropathy of both feet in the setting of PAD and PVD presents with increased falls without trauma, recently was given a life alert by family which may explain increase in concern. Serial troponins are negative-EKG shows chronic left bundle branch block, falls not related to cardiac etiology, incidental finding of a UTI on UA, will trial cephalexin, recommend close follow-up and strict return criteria for any further falls with trauma or any concerning symptoms like palpitations, dizziness, black or bloody stools, fevers, profound weakness. Patient's son was able to bring her home. Findings not consistent with ACS, stroke, trauma, dehydration. Disposition of urinary tract infection. Patient verbalized understanding of the plan and return to ED criteria and engaged in shared decision making. Medical Records Medical records reviewed: Yes I reviewed the patient's medical records. Lab Data Lab results reviewed: Yes I reviewed the patient's lab results. Labs: 11/15/24 11:13 Urine - Reflex from Ua Urine Culture - Pending Laboratory Tests Range/Units 11/15/24 11/15/24 11/15/24 10:51 11:13 11:58 WBC (4.4-10.8) 10^3/uL 4.14 L RBC (3.93-5.22) 10^6/uL 3.61 L Hgb (11.2-15.7) g/dL 11.8 Hct (36.0-46.0) % 36.0 MCV (80-95) fL 100 H MCH (27.0-33.0) pg 32.7 MCHC (32.0-36.0) % 32.8 RDW (11.7-14.6) % 13.3 Plt Count (130-400) 10^3/uL 141 MPV (8.0-11.0) fL 10.1 Immature Gran % % 0.5 Neutrophils % % 72.6 Lymphocytes % % 16.2 Monocytes % % 6.3 Eosinophils % % 3.4 Basophils % % 1.0 Nucleated RBC % (0.0-0.3) % 0.0 Absolute Neutrophils (1.2-6.7) 10^3/uL 3.01 Absolute Lymphocytes (1.2-3.4) 10^3/uL 0.67 L Absolute Monocytes (0.1-0.8) 10^3/uL 0.26 Absolute Eosinophils (0.0-0.7) 10^3/uL 0.14 Absolute Basophils (0.0-0.2) 10^3/uL 0.04 Sodium (136-145) mmol/L 145 Potassium (3.5-5.1) mmol/L 3.8 Chloride (98-107) mmol/L 109 H Carbon Dioxide (21.0-32.0) mmol/L 30.4 Anion Gap (3-11) mmol/L 5.6 BUN (7-18) mg/dL 24 H Creatinine (0.55-1.02) mg/dL 1.0 Est GFR (CKD-EPI 2020) (mL/min/1.73m2) 54.87 Glucose (74-106) mg/dL 88 Calcium (8.5-10.1) mg/dL 9.2 Magnesium (1.8-2.4) mg/dL 2.0 Total Bilirubin (0.2-1.0) mg/dL 0.6 AST (15-37) U/L 20 ALT (14-59) U/L 23 Alkaline Phosphatase (46-116) U/L 69 Troponin I (<or=51) ng/L 13 13 Total Protein (6.4-8.2) g/dL 6.4 Albumin (3.4-5.0) g/dL 3.4 Lipase (<78) U/L 28 TSH (0.36-3.74) uIU/mL 0.90 Urine Color (Yellow) Yellow Urine Clarity (Clear) Cloudy Urine pH (5-8) 6.0 Ur Specific Schuyler (1.005-1.025) 1.020 Urine Protein (Neg-Trace) mg/dL 100 H Urine Ketones (Negative) mg/dL Trace H Urine Blood (Negative) Small H Urine Nitrite (Negative) Negative Urine Bilirubin (Negative) Negative Urine Urobilinogen (Up to 0.2) mg/dL 0.2 Ur Leukocyte Esterase (Negative) Large H Urine RBC (0-2) HPF 3-5 H Urine WBC (0-5) HPF 10-20 H Ur Epithelial Cells (Negative) HPF Rare Urine Crystals (Negative) HPF Negative Urine Bacteria (Negative) HPF Many Urine Casts (Negative) LPF Negative Urine Mucus (Negative) Trace Ur Culture Indicated? Yes Urine Glucose (Negative) mg/dL Negative Quality:SDOH Health Related Social Needs: No Data to Display PFSH All Active Problems (Updated 11/15/24 @ 13:17 by LARA Jasmine) Urinary tract infection (Acute) PVD (peripheral vascular disease) (Chronic) PAD (peripheral artery disease) (Acute) Neuropathy (Acute) Onychomycosis (Acute) Dystrophia unguium (Acute) History of CVA (cerebrovascular accident) (Acute) Urinary incontinence (Acute) Unstable gait (Acute) Nail disorder (Acute) Edema (Acute) Left hip pain (Acute) Skin lesion (Acute) CKD (chronic kidney disease) stage 3, GFR 30-59 ml/min (Acute) 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 -thickening palpated lower, inner right breast Urinary retention (Acute) Functional bowel disorder (Chronic) constipation and diarrhea Hypertension (Chronic) Vertigo (Chronic) Breast cancer (Chronic) Right - Lumpectomy 1997, chemo & radiation Macrocytic anemia (Chronic) Medical History Tick bite Facial rash Constipation Bursitis of left hip Dilated cbd, acquired Atypical chest pain Surgical History Closed intertrochanteric fracture of right hip Status post TFN DOS: 03/10/20 History of open reduction and internal fixation (ORIF) procedure Left hip 2019 H/O lumpectomy Cholecystectomy (12/30/16) Family History Mother , age 93 No problems noted. Father , age 82 No problems noted. Brother , age 82 No problems noted. Maternal Grandfather , age 95 No problems noted. Maternal Grandmother , age 65 No problems noted. Social History Smoking/Tobacco Use Status: Former Tobacco Use Quit Date: 07/11/98 Tobacco: How many years used: 38 Second Hand Exposure: Yes Smoking risk assessment performed?: Yes Alcohol Intake: former Drug use: Never Substance use type: does not use Counseling given: No Counseling provided: none Caregiver/Support person: No Household members: none Housing: house Communication Needs: None Do you need help understanding health information?: Rarely Pets and animals: No Sexually active: No Current gender identity: decline to answer What is your relationship status?: How often do you talk on the phone with friends or family?: three or more times per week How often do you get together with friends or relatives?: twice per week How often do you attend oriental orthodox or denominational services?: decline to answer Do you belong to any clubs or organized social groups?: yes Panel score (0-1 are the most socially isolated patients): 2 What type of physical activity do you participate in: decline to answer Duration: < 15 minutes/day Frequency: decline to answer Jennie/Episcopal: None Special jennie needs: No Seatbelt use: always Drive intox or ride w/intox moving van driver: No Do you feel safe at home: Yes Do you feel safe in your relationship?: Yes
--- NOTE | 2024-11-15 09:45 | RT.EKG_ITS ---
APPROVED REPORT Exam: Resting ECG Reason for Exam: falls Patient Location: E HR:59 bpm ECG Measurements Heart Rate 59 AXIS WI 221 P 64 QRSd 122 QRS 40 QT 470 T 88 QTc 463 Conclusion Sinus bradycardia...rate< 60 Atrial premature complex...SV complex w/ short R-R interval Prolonged WI interval...WI >220, V-rate 50- 90 Probable left atrial enlargement...P >50mS, <-0.10mV V1 IVCD, consider LBBB...QRSd>120, notch/slur R I aVL V5-6
[2024-11-15 10:58] LABS: Abs Immature Grans 0.02 10^3/uL (0.0-0.06); Absolute Basophil Count 0.04 10^3/uL (0.0-0.2); Absolute Eosinophil Count 0.14 10^3/uL (0.0-0.7); Absolute Lymphocyte Count 0.67 10^3/uL (1.2-3.4); Absolute Monocyte Count 0.26 10^3/uL (0.1-0.8); Absolute Neutrophil Count 3.01 10^3/uL (1.2-6.7); Eosinophils % 3.4 %; HGB 11.8 g/dL (11.2-15.7); Immature Grans % 0.5 %; Lymphocytes % 16.2 %; MCH 32.7 pg (27.0-33.0); MCHC 32.8 % (32.0-36.0); MCV 100 fL (80-95); MPV 10.1 fL (8.0-11.0); Monocytes % 6.3 %; Neutrophils % 72.6 %; Platelet Count 141 10^3/uL (130-400); RBC 3.61 10^6/uL (3.93-5.22); RDW 13.3 % (11.7-14.6); WBC 4.14 10^3/uL (4.4-10.8)
[2024-11-15 11:23] LABS: Bilirubin Negative (Negative); Blood Small (Negative); Clarity Cloudy (Clear); Glucose Negative (Negative); Ketones Trace mg/dL (Negative); Leukocyte Esterase Large (Negative); Nitrite Negative (Negative); Urobilinogen 0.2 mg/dL (Up to 0.2)
[2024-11-15 11:24] LABS: ALT 23 U/L (14-59); AST 20 U/L (15-37); Albumin 3.4 g/dL (3.4-5.0); Alkaline Phosphatase 69 U/L (46-116); Anion Gap 5.6 mmol/L (3-11); BUN 24 mg/dL (7-18); Bilirubin, Total 0.6 mg/dL (0.2-1.0); CO2 30.4 mmol/L (21.0-32.0); Calcium 9.2 mg/dL (8.5-10.1); Chloride 109 mmol/L (98-107); Estimated GFR 54.87 (mL/min/1.73m2); Glucose 88 mg/dL (74-106); Lipase 28 U/L (<78); Potassium 3.8 mmol/L (3.5-5.1); Sodium 145 mmol/L (136-145); Total Protein 6.4 g/dL (6.4-8.2); Troponin I 13 ng/L (<or=51)
[2024-11-15 11:31] LABS: Bacteria Many HPF (Negative); C & S Indicated? Yes; Casts Negative LPF (Negative); Crystals Negative HPF (Negative); Epithelial Cells Rare HPF (Negative); Mucus Trace (Negative)
[2024-11-15 12:24] LABS: Troponin I 13 ng/L (<or=51)
== END 2024-11-15 14:03 | disposition home or self-care (01) ==
PROVIDERS: Emergency Provider Physician Assistant; PCP Nurse Practitioner Family
DX: N39.0 Urinary tract infection, site not specified (principal); R29.6 Repeated falls
CPT/HCPCS: 99284; 99283; 36415; 80053; 83690; 93005; 81003; 81015; 83735; 84443; 84484; 85025; 87086; 93010

== ENCOUNTER → 2024-12-17 10:05 | Outpatient (BNVA) | payer MEDICARE, SELFPAY | PROVIDERS: PCP Nurse Practitioner Family; Referring Provider Nurse Practitioner Family; Visit Provider Podiatrist | DX: R60.0 Localized edema (principal); L60.3 Nail dystrophy; B35.1 Tinea unguium; G62.9 Polyneuropathy, unspecified; I73.89 Other specified peripheral vascular diseases; S93.401A Sprain of unspecified ligament of right ankle, initial encounter; S90.31XA Contusion of right foot, initial encounter; N18.9 Chronic kidney disease, unspecified; X58.XXXA Exposure to other specified factors, initial encounter | CPT/HCPCS: 99214 ==

== ENCOUNTER 2024-12-24 00:10 | Outpatient (CLI) | payer MEDICARE, SELFPAY ==
--- NOTE | 2024-12-24 07:30 | DI.RAD_ITS ---
Exam(s) XR ANKLE RT COMPLETE EXAM: XR ANKLE RT COMPLETE CLINICAL HISTORY: Ankle sprain,RT,NEUROPATHY,S93.401A. TECHNIQUE: 2D digital imaging was performed of the right ankle. Three images were obtained. AP, lateral and oblique views were obtained. COMPARISON: No exams were available for comparison FINDINGS: BONES: No acute fracture is present. No bony destructive lesion is seen. There is a moderate-sized plantar calcaneal spur. There is an enthesophyte present. There is numerous soft tissue calcifications at the posterior calcaneus which may reflect tendinous calcifications. JOINTS: The ankle mortise is normally aligned. SOFT TISSUE: Normal. IMPRESSION: Calcaneal spurs. DATA REPOSITORY: RADIATION DOSE DELIVERED:
--- NOTE | 2024-12-24 07:30 | DI.RAD_ITS ---
Exam(s) XR FOOT RT COMPLETE EXAM: XR FOOT RT COMPLETE CLINICAL HISTORY: contusion RT FOOT, S90.31XA. TECHNIQUE: 2D digital imaging was performed of the right foot. Three images were obtained. AP, oblique and lateral views were obtained. COMPARISON: No exams were available for comparison FINDINGS: BONES: There is a fracture seen of the 5th metatarsal. Portions of the fracture appear healed in this may represent a subacute or incompletely healed fracture. Please correlate with patient's clinical history. No bony destructive lesion is seen. There is a moderate-sized plantar calcaneal spur. There is an enthesophyte present. Soft tissue calcifications are seen posterior to the calcaneus which may be tendinous in location. JOINTS: No dislocation present. Moderate degenerative changes are seen in the foot particularly the interphalangeal joints of the toes. SOFT TISSUE: Normal. IMPRESSION: 1. Fracture associated with the 5th metatarsal as described above. Please correlate with the patient's clinical history. 2. Degenerative changes of the foot. 3. Calcaneal spurs. DATA REPOSITORY: RADIATION DOSE DELIVERED:
== END 2024-12-24 00:30 ==
LOC: DI 00:11
PROVIDERS: PCP Nurse Practitioner Family; Visit Provider Podiatrist
DX: S92.351D Displaced fracture of fifth metatarsal bone, right foot, subsequent encounter for fracture with routine healing (principal); S90.31XD Contusion of right foot, subsequent encounter; M77.31 Calcaneal spur, right foot; G62.9 Polyneuropathy, unspecified
CPT/HCPCS: 73610; 73630

== ENCOUNTER → 2025-02-06 15:14 | Outpatient (BNVA) | payer MEDICARE, SELFPAY | PROVIDERS: PCP Nurse Practitioner Family; Referring Provider Nurse Practitioner Family; Visit Provider Nurse Practitioner Gerontology | DX: N39.46 Mixed incontinence (principal) | CPT/HCPCS: 99214 ==

== ENCOUNTER → 2025-06-27 15:24 | Outpatient (BNVA) | payer MEDICARE, SELFPAY | PROVIDERS: PCP Nurse Practitioner Family; Referring Provider Nurse Practitioner Family; Visit Provider Nurse Practitioner Gerontology | DX: N39.46 Mixed incontinence (principal); R39.9 Unspecified symptoms and signs involving the genitourinary system; R60.0 Localized edema | CPT/HCPCS: 99215; 51798 ==